=== PATIENT | female | born 1960 | race Caucasian/White ===

== ENCOUNTER → 2017-01-18 | Outpatient (CLI) | payer BC ==
[~2017-01-18] MED LIST: CATHETER FLUSH 10 ML SYR IV PRN; IOHEXOL 350 MG/ML 100 ML (OMNIPAQUE 350) VIAL IV ONE; NS 100 ML (IVPB) BAG IV ONE
[2017-01-18 08:13] LABS: BLOOD UREA NITROGEN 12 MG/DL (7-18); BUN/CREATININE RATIO 16; CREATININE SERUM 0.77 MG/DL (0.60-1.30); GFR ESTIMATED > 60
--- NOTE | 2017-01-18 11:48 | Diagnostic Imaging Report ---
PROCEDURE: CT abdomen and pelvis with and without contrast. TECHNIQUE: Precontrast acquisitions were acquired through the abdomen and pelvis. Multiple contiguous axial images were obtained through the abdomen and pelvis after the administration of intravenous contrast. INDICATION: Pelvic mass. History of hysterectomy. COMPARISON: No prior studies are available for comparison. CONTRAST: 100 mL of Omnipaque 350 is administered intravenously. FINDINGS: Sections in the lower chest demonstrate partially visualized breast implants. The lung bases appear clear. The liver, the gallbladder, the pancreas, the spleen, and adrenals appear unremarkable. The kidneys have symmetric enhancement and contrast excretion. No kidney stone or hydronephrosis is noted. The abdominal aorta is normal in caliber. No paraaortic significant enlarged lymph nodes are seen. Adjacent to the lateral aspect of the lower pole of the left kidney, there is a soft tissue enhancing nodule measuring 1.3 x 1 cm. This may relate to a splenule as it has small margins and similar density and enhancement pattern compared to the spleen. There is a large pelvic mass with heterogenous enhancement seen measuring 13 x 8.7 x 10.7 cm. The mass has lobulated margins and is centered above the cervix level. Reportedly, the patient has had a hysterectomy. Etiology is indeterminate. The mass has an element of arteriovenous shunting in its left side. There is no lymphadenopathy in the pelvis seen. There is no bowel obstruction. No significant free fluid or fluid collection in the abdomen or pelvis is seen. The osseous structures appear grossly unremarkable. IMPRESSION: A 13 cm solid the pelvic mass, likely arising from remnants of the uterus, after hysterectomy. The lesion is inseparable from the adnexa and adnexal origin therefore is also possible. Etiology is indeterminate and differential includes benign or malignant neoplasm arising from the uterine remnants or the adnexa. Carly Mims, the nurse practitioner taking care of the patient, was called and informed of the findings at 2:50 PM. Dictated by: Dictated on workstation # [id number]
--- NOTE | 2017-01-20 13:34 | Diagnostic Imaging Report ---
Bilateral screening mammogram The current study was also evaluated with a Computer Aided Detection (CAD) system. Indication: Screening. No current complaints stated on the questionnaire. COMPARISON: 11/27/15 and the other prior exams. Findings: The breasts are composed of heterogeneously dense parenchyma which decrease mammographic sensitivity. Symmetric bilateral implants are seen. No mass developing architectural distortion seen. Benign-appearing calcifications are noted. Allowing for technique and positional differences, no suspicious change is seen. IMPRESSION: No significant change. ACR BI-RADS Category 2: Benign findings. Result letter will be mailed to the patient. Note: At least 10% of breast cancer is not imaged by mammography. Dictated by: Dictated on workstation # [id number]
== END ==
LOC: RAD 07:36
PROVIDERS: ATTEND Nurse Practitioner
DX: Z12.31 Encounter for screening mammogram for malignant neoplasm of breast (principal); R19.09 Other intra-abdominal and pelvic swelling, mass and lump
CPT/HCPCS: 36415; 74178; 77067; 82565; 84520

== ENCOUNTER → 2017-01-20 | Outpatient (CLI) | payer BC ==
--- NOTE | 2017-01-20 16:57 | Diagnostic Imaging Report ---
EXAMINATION: Transabdominal and transvaginal pelvic ultrasound. INDICATION: Pelvic mass. The patient has a history of hysterectomy. FINDINGS: There is a pelvic mass with prominent vascularity measuring 12.7 x 8.4 x 10.8 cm in the central aspect of the pelvis. This is located just above the vaginal cuff and demonstrates significant internal vascularity. The relationship to the ovaries could not be evaluated on this exam as the ovaries are obscured potentially by the mass itself. IMPRESSION: Indeterminate vascular solid mass, presumably neoplastic. The organ of origin is probably adnexal but not definitive. This should be considered malignant until proven otherwise. Report faxed to JAYSON Treadwell at 4:56 p.m. /cb Dictated by: Dictated on workstation # [id number]
== END ==
LOC: RAD 13:26
PROVIDERS: ATTEND Nurse Practitioner
DX: R19.09 Other intra-abdominal and pelvic swelling, mass and lump (principal)
CPT/HCPCS: 76830; 76856

== ENCOUNTER → 2017-06-10 | Outpatient (CLI) | payer BC ==
[~2017-06-10] MED LIST changes: -CATHETER FLUSH 10 ML SYR IV PRN; +GADOBUTROL 7.5 MMOL/7.5 ML (GADAVIST) VIAL IV ONE; -IOHEXOL 350 MG/ML 100 ML (OMNIPAQUE 350) VIAL IV ONE; -NS 100 ML (IVPB) BAG IV ONE
--- NOTE | 2017-06-10 12:33 | Diagnostic Imaging Report ---
PROCEDURE: MR imaging of the brain with and without contrast. TECHNIQUE: Multiplanar, multisequence MR imaging of the brain was performed with and without contrast. INDICATION: Leiomyosarcoma, worsening vision. 5 mL of Gadavist is administered intravenously. FINDINGS: There is no diffusion restriction to suggest an acute infarct or other diffusion abnormality. The brain parenchyma demonstrate no significant signal abnormality or evidence of demyelinating process, brain edema or enhancing mass. The brainstem and cerebellum appear unremarkable. The visualized portions of the optic nerves, optic chiasm and optic tracts appear unremarkable. The pituitary gland is normal in size with no hypothalamic or pineal region mass. No hydrocephalus. No extra-axial fluid collection or mass is seen. The internal auditory canals appear symmetric. The central vascular flow-voids appear grossly unremarkable. There is a mucous retention cyst measuring 1.5 cm in the right maxillary sinus. Otherwise, the paranasal sinuses appear grossly unremarkable. The orbits appear grossly unremarkable. IMPRESSION: No significant abnormality. No evidence of metastasis. Dictated by: Dictated on workstation # [id number]
== END ==
LOC: RAD 10:41
DX: C49.9 Malignant neoplasm of connective and soft tissue, unspecified (principal)
CPT/HCPCS: 70553

== ENCOUNTER → 2017-08-17 | Outpatient (CLI) | payer BC ==
--- NOTE | 2017-08-17 10:14 | Diagnostic Imaging Report ---
EXAMINATION: PA and lateral views of the chest. INDICATION: Chronic cough. FINDINGS: The lungs are clear. The heart is normal. No effusion or pneumothorax. The mediastinum and alesia appear unremarkable. There is a left subclavian infusion port with the tip at the distal SVC level. IMPRESSION: No acute process. Dictated by: Dictated on workstation # [id number]
== END ==
LOC: RAD 08:22
PROVIDERS: ATTEND Nurse Practitioner
DX: R05 Cough (principal)
CPT/HCPCS: 71020

== ENCOUNTER → 2017-09-21 | Outpatient (CLI) | payer BC ==
--- NOTE | 2017-09-21 10:09 | Diagnostic Imaging Report ---
INDICATION: Cough FINDINGS: There is no lung mass. Hilar and mediastinal contours are unremarkable Central line at the SVC. No infiltrate, effusion, pneumothorax or evidence for edema. IMPRESSION: No acute appearing abnormality. Dictated by: Dictated on workstation # [id number]
== END ==
LOC: RAD 07:56
PROVIDERS: ATTEND Nurse Practitioner
DX: R05 Cough (principal)
CPT/HCPCS: 71046

== ENCOUNTER → 2017-09-29 | Outpatient (CLI) | payer BC ==
--- NOTE | 2017-09-29 16:05 | Diagnostic Imaging Report ---
INDICATION: Cough. COMPARISON: 09/21/2017 FINDINGS: Two views of the chest are obtained. Left Port-A-Cath is unchanged. Heart size is normal. The pulmonary vessels appear unremarkable. There is no pneumothorax, mediastinal widening or pleural fluid. There is some minimal developing nodular airspace disease in the lateral right midlung. The lungs are otherwise clear. The osseous structures appear unremarkable. IMPRESSION: Suspect some developing subtle infiltrate in the lateral right midlung. Short-term followup study is recommended. Dictated by: Dictated on workstation # [id number]
== END ==
LOC: RAD 15:36
PROVIDERS: ATTEND Internal Medicine
DX: R05 Cough (principal)
CPT/HCPCS: 71046

== ENCOUNTER 2017-10-13 21:33 | Emergency (ER) | payer BC ==
[~2017-10-13] VITALS: Ht 160 cm; Wt 54.4 kg
--- OUTSIDE RECORDS SUMMARY | 2017-10-13 21:38 | XMS REPORT | Continuity of Care Document ---
Author Author [employer] Organization [facility] Address Unknown Phone Unavailable Care Team Providers Care Computer Operations Analyst Name Role Phone [employer] Unavailable Unavailable Problems Medications Allergies, Adverse Reactions, Alerts Immunizations Results Vital Signs Encounters Location Location Details Encounter Type Encounter Number Reason For Visit Attending Provider ADM Date DC Date Status Source OUTPATIENT [id number] MIGELPedro BENDER 03/11/2017 03/11/2017 Active [facility] [place] SERIES [id number] MYRANDA BARBA 06/06/2017 06/06/2017 Active [facility] OP SURGERY [id number] MYRANDA BARBA 06/13/2017 06/13/2017 Active [facility] OUTPATIENT [id number] MYRANDA BARBA 06/16/2017 06/16/2017 Active [facility] OUTPATIENT [id number] MYRANDA BARBA 06/16/2017 06/16/2017 Active [facility] [place] SERIES [id number] KANDY FERNANDO 06/20/2017 Active [facility] [place] SERIES [id number] KANDY FERNANDO 06/20/2017 Active [facility] PROCEDURE [id number] MYRANDA BARBA 06/21/2017 06/21/2017 Active [facility] [place] SERIES [id number] KANDY FERNANDO 06/27/2017 06/27/2017 Active [facility] [place] SERIES [id number] MYRANDA BARBA 07/11/2017 07/11/2017 Active [facility] CA SERIES [id number] KANDY FERNANDO 07/18/2017 07/18/2017 Active [facility] [place] SERIES [id number] MYRANDA BARBA 08/01/2017 08/01/2017 Active [facility] CA SERIES [id number] KANDY FERNANDO 08/08/2017 08/08/2017 Active [facility] CA SERIES [id number] MYRANDA BARBA 08/22/2017 08/22/2017 Active [facility] CA SERIES [id number] KANDY FERNANDO 08/29/2017 08/29/2017 Active [facility] CA SERIES [id number] MYRANDA BARBA 09/07/2017 09/07/2017 Active [facility] OUTPATIENT [id number] 09/13/2017 Active [facility] CA SERIES [id number] MYRANDA BARBA 09/13/2017 09/13/2017 Active [facility] CA SERIES [id number] KANDY FERNANDO 09/19/2017 09/19/2017 Active [facility] OUTPATIENT [id number] MYRANDA BARBA 09/19/2017 09/19/2017 Active [facility] CA SERIES [id number] MYRANDA BARBA 10/03/2017 10/03/2017 Active [facility] CA SERIES [id number] KANDY FERNANDO 10/10/2017 Active [facility] O MYRANDA BARBA Active [facility] Procedures Plan of Care Social History Assessment and Plan Family History Advance Directives Functional Status
--- OUTSIDE RECORDS SUMMARY | 2017-10-13 21:39 | XMS REPORT | Encounter Summary ---
Author Author [facility] Organization [facility] Address Unknown Phone Unavailable Care Team Providers Care Oral And Maxillofacial Surgery Resident Name Role Phone Dave Sanchez MD PCP Reason for Visit * Reason Comments Heme/Onc Care * Treatment (Routine) Status Reason Specialty Diagnoses / Referred By Referred To Procedures Contact Contact Authorized Hematology Diagnoses Rudolph Cohn Benjamin Leiomyosarcoma MD Dakotah Claire MD ([facility]) [address] [facility] + [place] [address] [place] Phone: Phone: P [phone] rocedures Fax: [facility] + [phone] DOXORUBICIN Encounter Details Date Type Department Care Team Description 10/03/2017 [facility] Rudolph Cohn [facility] - OP MD [place] Treatment [address] [phone] Social History Tobacco Use Types Packs/Day Years Used Date Never Smoker Smokeless Tobacco: Never Used Alcohol Use Drinks/Week oz/Week Comments Yes 10 Cans of 12.0 beer 10 Shots of liquor Sex Assigned at Date Recorded Not on file as of this encounter Functional Status Functional Status Response Date of Assessment Does the patient have a hearing impairment: No 09/07/2017 Does the patient have a visual impairment: No 09/13/2017 Does the patient have impaired ambulation: No 09/13/2017 Does the patient have an activity of daily living No 09/13/2017 (ADL) impairment: Does the patient have an instrumental activity of No 09/13/2017 daily living (IADL) impairment: Cognitive Status Response Date of Assessment Does the patient have a cognitive impairment: No 09/13/2017 as of this encounter Discharge Instructions * Patient Instructions - Alta Mancera RN - 10/03/2017 10:29 AM DIRECT OF REAL ESTATE Call Immediately to report the following: Uncontrolled nausea and/or vomiting, uncontrolled pain, or unusual bleeding. Temperature of 100.4 F or greater and/or any sign/symptom of infection (redness , warmth, tenderness) Painful mouth or difficulty swallowing Red, cracked, or painful hands and/or feet Diarrhea Swelling of arms or legs Rash Important Phone Numbers: OP Cancer Center Main Number (answered 24 hours a day) [phone] Cancer Center Scheduling (appointments) [phone] OR [phone] [facility] (for nutritional supplements) [phone] in this encounter Medications at Time of Discharge Medication Sig. Disp. Refills Start Date End Date acyclovir (ZOVIRAX) 400 Take 1 tablet by mouth 60 tablet 3 07/18/2017 mg tablet every 12 hours. acyclovir (ZOVIRAX) 800 Take 1 tablet by mouth 14 tablet 0 07/18/2017 mg tablet every 12 hours. albuterol (PROAIR HFA, Inhale 2 puffs by mouth 6.7 g 1 09/21/2017 VENTOLIN HFA, OR into the lungs every 6 PROVENTIL HFA) 90 hours as needed for mcg/actuation inhaler Wheezing or Shortness of Breath. Shake well before use. calcium carbonate/vitamin Take 1 Tab by mouth D-3 (OSCAL-500+D) 1250 daily. Calcium Carb mg/200 unit tablet 1250mg delivers 500mg elemental Ca cholecalciferol (VITAMIN Take 1,000 Units by mouth D-3) 1,000 units tablet daily. dexamethasone (DECADRON) Take 2 tablets by mouth 30 tablet 3 2017 4 mg tabletIndications: daily. On Days 2-4 of Leiomyosarcoma (HCC) each cycle, as needed for acute nausea dexamethasone (DECADRON) Take 2 tablets by mouth 30 tablet 3 2016 4 mg tablet daily as needed on days 2-4 of each cycle. diphenhydrAMINE/lidocaine Swish and Swallow 10 mL 300 mL 2 07/04/2017 /antacid (#) (MAGIC by mouth as directed four MOUTHWASH) 1:1:1 oral times daily as needed for suspensionIndications: Mouth Pain. Mucositis HYDROcodone/acetaminophen Take 1-2 tablets by mouth 20 tablet 0 2016 (NORCO) 5/325 mg tablet every 4 hours as needed for Pain Earliest Fill Date: 06/20/17 ibandronate (BONIVA) 150 Take 150 mg by mouth mg tablet every 30 days. lidocaine/prilocaine apply one hour prior to 30 g 2 06/20/2017 (EMLA) 2.5/2.5 % topical port access cream LORazepam (ATIVAN) 0.5 mg Take 1 tablet by mouth 60 tablet 1 2016 tabletIndications: every 6 hours as needed ANXIETY, INSOMNIA for Nausea. Indications: ANXIETY, INSOMNIA ondansetron (ZOFRAN) 8 mg Take 1 tablet by mouth 18 tablet 5 2016 tablet every 8 hours as needed. ondansetron (ZOFRAN) 8 mg Take 1 tablet by mouth 30 tablet 5 2016 tabletIndications: every 8 hours as needed Leiomyosarcoma (HCC) (nausea and vomiting). prochlorperazine maleate Take 1 tablet by mouth 30 tablet 2 2016 (COMPAZINE) 10 mg tablet every 6 hours as needed for Nausea or Vomiting. senna/docusate Take 1 Tab by mouth twice 60 Tab 0 02/17/2017 (SENOKOT-S) 8.6/50 mg daily. tablet traMADol (ULTRAM) 50 mg Take 1-2 Tabs by mouth 60 Tab 0 02/17/2017 tablet every 6 hours as needed. vitamins, multiple tablet Take 1 Tab by mouth daily. as of this encounter Progress Notes * Alta Mancera, RN - 10/03/2017 10:28 AM DIRECT OF REAL ESTATE Pt here for treatment. Pt states she feels well, was sick last week but feels better. Port accessed and labs drawn, pt tolerated well. Pt to see Dr. Cohn. CHEMO NOTE Verified chemo consent signed and in chart. Verified initiate chemo order in O2 Blood return positive via: Port (Single) BSA and dose double checked (agree with orders as written) with: yes Labs/applicable tests checked: CBC and CMP Chemo regime: Lartudo adriamycin Cycle 6 day 1 Rate verified and armband double checkwith second RN: yes Patient education offered and stated understanding. Denies questions at this time. Pt tolerated treatment well. Port packed with heparin and deaccessed. Pt discharged in stable, ambulatory condition. in this encounter Miscellaneous Notes * Addendum Note - Patricia Garza - 10/06/2017 3:10 PM DIRECT OF REAL ESTATE Encounter addended by: Patricia Garza on: 10/06/2017 3:10 PM
Actions taken : Charge Capture section accepted in this encounter Plan of Treatment Not on fileas of this encounter Results * COMPREHENSIVE METABOLIC PANEL (10/03/2017 10:15 AM) Component Value Ref Range Sodium 135 (L) 137 - 147 MMOL/L Potassium 3.5 3.5 - 5.1 MMOL/L Chloride 101 98 - 110 MMOL/L Glucose 173 (H) 70 - 100 MG/DL Blood Urea Nitrogen 8 7 - 25 MG/DL Creatinine 0.57 0.4 - 1.00 MG/DL Calcium 9.0 8.5 - 10.6 MG/DL Total Protein 6.4 6.0 - 8.0 G/DL Total Bilirubin 0.4 0.3 - 1.2 MG/DL Albumin 4.0 3.5 - 5.0 G/DL Alk Phosphatase 43 25 - 110 U/L AST (SGOT) 44 (H) 7 - 40 U/L CO2 26 21 - 30 MMOL/L ALT (SGPT) 25 7 - 56 U/L Anion Gap 8 3 - 12 eGFR Non >60 >60 mL/min Comment: The eGFR is not validated for use in drug dosing adjustments. Continue to use estimated creatinine clearance per dosing reference text. Please contact the Clinical Pharmacist for questions. eGFR >60 >60 mL/min Comment: The eGFR is not validated for use in drug dosing adjustments. Continue to use estimated creatinine clearance per dosing reference text. Please contact the Clinical Pharmacist for questions. Specimen Performing Laboratory Blood [facility] [address] [place] [address] * CBC AND DIFF (10/03/2017 10:15 AM) Component Value Ref Range White Blood Cells 2.7 (L) 4.5 - 11.0 K/UL RBC 3.00 (L) 4.0 - 5.0 M/UL Hemoglobin 10.0 (L) 12.0 - 15.0 GM/DL Hematocrit 28.8 (L) 36 - 45 % MCV 95.9 80 - 100 FL MCH 33.2 26 - 34 PG MCHC 34.6 32.0 - 36.0 G/DL RDW 16.3 (H) 11 - 15 % Platelet Count 327 150 - 400 K/UL MPV 6.3 (L) 7 - 11 FL Neutrophils 46 41 - 77 % Lymphocytes 28 24 - 44 % Monocytes 24 (H) 4 - 12 % Eosinophils 1 0 - 5 % Basophils 1 0 - 2 % Absolute Neutrophil Count 1.30 (L) 1.8 - 7.0 K/UL Absolute Lymph Count 0.80 (L) 1.0 - 4.8 K/UL Absolute Monocyte Count 0.70 0 - 0.80 K/UL Absolute Eosinophil Count 0.00 0 - 0.45 K/UL Absolute Basophil Count 0.00 0 - 0.20 K/UL Specimen Performing Laboratory Blood [facility] [address] [phone] in this encounter 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 Administered Medications Medication Order MAR Action Action Date Dose Rate Site dexamethasone (DECADRON) 12 mg in sodium Given - New 10/03/2017 12 mg 300 mL/hr chloride 0.9% (NS) 50 mL IVPB Bag 11:55 DIRECT OF REAL ESTATE 12 mg, Intravenous, 50 mL, Administer over 10 Minutes, ONCE, 1 dose, Tue10/03/17 at 1115 dexrazoxane ([place] Generic) 942 Given - New 10/03/2017 942 mg 1256 mL/hr mg in lactated ringers (LR) 314 mL IVPB Bag 13:36 DIRECT OF REAL ESTATE 942 mg (600 mg/m2 1.57 m2 Treatment plan recorded BSA), Intravenous, 314 mL, Administer over 15 Minutes, ONCE, 1 dose, Tue10/03/17 at 1245, -- NOTE; THIS IS THE [place] GENERIC FORMULATION of dexrazoxane -- -- Administer diluted concentration over 15 minute IV infusion. Administer prior to doxorubicin. Administer doxorubicin within 30 minutes after completion of dexrazoxane. NURSING: To be administered by Chemotherapy Competency-validated nurse. NOTE: This is a HIGH ALERT Medication. SPECIAL TUBING REQUIRED diphenhydrAMINE (BENADRYL) injection 25 Given 10/03/2017 25 mg mg 11:32 DIRECT OF REAL ESTATE 25 mg, Intravenous, ONCE, 1 dose, 10/03/17 at 1115 DOXOrubicin (ADRIAMYCIN) injection 94.2 Given 10/03/2017 94.2 mg mg 14:00 DIRECT OF REAL ESTATE 94.2 mg (60 mg/m2 1.57 m2 Treatment plan recorded BSA), Intravenous, ONCE, 1 dose, 10/03/17 at 1300, Give IV push over 5- 10 minutes. Administer within 30 minutes of completion of dexrazoxane. PROTECT FROM LIGHT NURSING: To be administered by Chemotherapy Competency-validated nurse. NOTE: This is a HIGH ALERT Medication. SPECIAL TUBING REQUIRED fosaprepitant (EMEND) 150 mg in sodium Given - New 10/03/2017 150 mg 450 mL/hr chloride 0.9% (NS) 150 mL IVPB Bag 11:35 DIRECT OF REAL ESTATE 150 mg, Intravenous, 150 mL, Administer over 20 Minutes, ONCE, 1 dose, 10/03/17 at 1115 heparin lock flush PF syringe 500 Units Given 10/03/2017 500 Units 500 Units, Intravenous, ONCE, 1 dose, 14:15 DIRECT OF REAL ESTATE 10/03/17 at 1045, NOTE: This is a HIGH ALERT Medication. olaratumab (LARTRUVO) 664.8 mg in sodium Given - New 10/03/2017 664.8 mg 250 mL/hr chloride 0.9% (NS) 250 mL IVPB Bag 12:33 DIRECT OF REAL ESTATE 664.8 mg (12 mg/kg 55.4 kg Treatment plan recorded weight), Intravenous, 250 mL, Administer over 60 Minutes, ONCE, 1 dose, Tue10/03/17 at 1145, Allow infusion to reach room temp prior to administration. For Grade 1 or 2 infusion-related reactions: Interrupt infusion; after resolution resume with the rate reduced by 50%. Grade 3 or 4: Discontinue permanently. SPECIAL HANDLING PRECAUTIONS NOTE: This is a HIGH ALERT Medication. palonosetron(+) (ALOXI) injection 0.25 Given 10/03/2017 0.25 mg mg 11:30 DIRECT OF REAL ESTATE 0.25 mg, Intravenous, ONCE, 1 dose, 10/03/17 at 1115 in this encounter
--- OUTSIDE RECORDS SUMMARY | 2017-10-13 21:39 | XMS REPORT | Clinical Summary ---
Author Author [facility] Organization [facility] Address Unknown Phone Unavailable Care Team Providers Care [employer] Flake Miller Name Role Phone Dave Sanchez MD PCP Source Comments Some departments are not documenting in the electronic medical record. If you do not see the information that you expected, contact Release of Information in the Health Information Management department at [phone] for further assistance in locating additional records.[facility] Allergies No Known Allergies Current Medications Prescription Sig. Disp. Refills Start End Date Status Date ibandronate (BONIVA) 150 Take 150 mg by mouth Active mg tablet every 30 days. cholecalciferol (VITAMIN Take 1,000 Units by mouth Active D-3) 1,000 units tablet daily. vitamins, multiple tablet Take 1 Tab by mouth Active daily. calcium carbonate/vitamin Take 1 Tab by mouth Active D-3 (OSCAL-500+D) 1250 daily. Calcium Carb mg/200 unit tablet 1250mg delivers 500mg elemental Ca traMADol (ULTRAM) 50 mg Take 1-2 Tabs by mouth 60 Tab 0 02/18/20 Active tablet every 6 hours as needed. 17 senna/docusate Take 1 Tab by mouth twice 60 Tab 0 02/18/20 Active (SENOKOT-S) 8.6/50 mg daily. 17 tablet ondansetron (ZOFRAN) 8 mg Take 1 tablet by mouth 30 tablet 5 06/20/20 Active tabletIndications: every 8 hours as needed 17 Leiomyosarcoma (HCC) (nausea and vomiting). prochlorperazine maleate Take 1 tablet by mouth 30 tablet 2 06/20/20 Active (COMPAZINE) 10 mg tablet every 6 hours as needed 17 for Nausea or Vomiting. lidocaine/prilocaine apply one hour prior to 30 g 2 10/09/20 Active (EMLA) 2.5/2.5 % topical port access 17 cream HYDROcodone/acetaminophen Take 1-2 tablets by mouth 20 tablet 0 Active (NORCO) 5/325 mg tablet every 4 hours as needed 17 for Pain Earliest Fill Date: 06/20/17 LORazepam (ATIVAN) 0.5 mg Take 1 tablet by mouth 60 tablet 1 06/27/20 Active tabletIndications: every 6 hours as needed 17 ANXIETY, INSOMNIA for Nausea. Indications: ANXIETY, INSOMNIA diphenhydrAMINE/lidocaine Swish and Swallow 10 mL 300 mL 2 07/04/20 Active /antacid (#) (MAGIC by mouth as directed four 17 MOUTHWASH) 1:1:1 oral times daily as needed for suspensionIndications: Mouth Pain. Mucositis dexamethasone (DECADRON) Take 2 tablets by mouth 30 tablet 3 07/04/20 Active 4 mg tablet daily as needed on days 17 2-4 of each cycle. ondansetron (ZOFRAN) 8 mg Take 1 tablet by mouth 18 tablet 5 07/08/20 Active tablet every 8 hours as needed. 17 acyclovir (ZOVIRAX) 800 Take 1 tablet by mouth 14 tablet 0 07/18/20 Active mg tablet every 12 hours. 17 acyclovir (ZOVIRAX) 400 Take 1 tablet by mouth 60 tablet 3 07/18/20 Active mg tablet every 12 hours. 17 dexamethasone (DECADRON) Take 2 tablets by mouth 30 tablet 3 09/21/19 Active 4 mg tabletIndications: daily. On Days 2-4 of 18 Leiomyosarcoma (HCC) each cycle, as needed for acute nausea albuterol (PROAIR HFA, Inhale 2 puffs by mouth 6.7 g 1 09/21/19 Active VENTOLIN HFA, OR into the lungs every 6 18 PROVENTIL HFA) 90 hours as needed for mcg/actuation inhaler Wheezing or Shortness of Breath. Shake well before use. dexamethasone (DECADRON) Take 2 tablets by mouth 30 tablet 3 06/20/20 09/21/19 Discontin 4 mg tabletIndications: daily. On Days 2-4 of 17 18 ued Leiomyosarcoma (HCC) each cycle, as needed for acute nausea prednisone (DELTASONE) 50 Take 1 tablet by mouth 5 tablet 0 08/16/20 09/21/19 Discontin mg tabletIndications: daily with breakfast. 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 Upon examination was noted an ovarian mass vaginally extending up into abdomen. 01/18/17 CT - large 13 cm solid pelvic mass, likely arising from remnants of the uterus, after hysterectomy. The lesion is inseparable from the adnexa and adnexal origin therefore is also possible. 01/20/17 TVUS - indeterminate vascular solid mass, presumably neoplastic. Tumor markers drawn 01/18/17, CA 125=6.0, AFP=2.5, Inhibib A <1, Inhibin B <10. 02/16/17 Open bilateral salpingo-oophorectomy with a tumor debulking of mass. Final path - Non exhibits curator 14.1x9.1x13.5cm leiomyosarcoma of mesentery, margins neg but extremely close, thin capsule intact Mitotic rate: 8 /10 high-power carrera (HPF), with moderate nuclear atypia; necrosis 5 %; grade 1; (-) LVI; (+) smooth muscle actin and H-caldesmon; (-) CD 117, DOG-1, ER (minimal focal faint staining for [place]) Staging CT chest 03/11/17 showed multiple small subcm right lung nodules, and no thoracic adenopathy. She has never had any previous CTs of chest. CT 06/06/17 showed new R hepatic lobe lesion as well as growth in B lung spots concerning for metastatic disease. MRI brain 06/10/17 showed no significant abnormality (was having some vision changes). 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 She started doxorubicin + olaratumab combo in-house on 06/21/17, and tolerated first cycle well, without any allergic reactions. Her big issue throughout first cycle has been significant mucositis to the point of not being able to tolerate much by mouth other than water for 3-4 days, as well as neutropenic fever, for which she was given a course of levaquin. She was unable to work the last week of the first three week cycle due to aforementioned, so we dose-reduced both drugs with second cycle, and the 2nd cycle was much better tolerated. The 3rd cycle was complicated by viral URI, which she thinks was probably due to the large Thanksgiving libertarian they hosted at their house. She had a course of augmentin and steroids and recovered from that. Restaging CT after 4 cycles on 09/07/17 showed stable (liver, peritoneal nodule) to slight improvement (lungs) in metastatic disease. Therefore, she continued with doxo + olara, and added dexrazoxane with 5th cycle onward. Repeat echo 09/19/17 showed preserved EF at 60%. Now here after 5th cycle. Called in with fevers and dry cough last week. CXR on last showed concerning findings for pneumonia. She was neutropenic at the time, but was given oral antibiotics with improvement over last few days. Dexrazoxane addition certainly made her more myelosuppressed. She feels fine today; no cough throughout the history/exam. Wondering if she can spray medel. 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 Continue cycle #6 doxo + olara this week, dose-reduced (60mg/m2 and 12mg/kg, respectively) due to side effect profile. Due to worsened neutropenia and fevers with cycle #5, incorporate Neulasta into day 8 portion of cycle, in hopes of preventing further neutropenic fevers. I have encouraged her to really re-focus on life and what she wants to accomplish/do/enjoy in the meantime. She has a daughter 10mins from the clinic, where she can stay if need be. Restage after 8th cycle next. She is looking at [place] or [place] for next big trip ("somewhere warm"). Discussed with the patient and all questions fully answered. She will call me if any problems arise. Neuropathy (HCC) 02/28/2017 Resolved Problems Problem Noted Date Resolved Date Diarrhea 02/28/2017 03/28/2017 Adnexal mass 02/16/2017 02/28/2017 Abdominal distention 01/31/2017 03/28/2017 Pelvic mass in female 01/31/2017 02/28/2017 Encounters Date Type Specialty Care Team Description 10/13/2017 Telephone Oncology Rudolph Cohn Care Coordination MD [place] 10/10/2017 Office Visit Oncology Valentina Pérez APRN Leiomyosarcoma ( HCC) (Primary Dx) 10/10/2017 Hospital Oncology Valentina Pérez, PLATFORM POWER TECHNICIAN Arrived Encounter 10/10/2017 Hospital Lab Valentina Préez, PLATFORM POWER TECHNICIAN Arrived Encounter 10/03/2017 Office Visit Oncology Rudolph Cohn Leiomyosarcoma (HCC) MD [place] 10/03/2017 Hospital Oncology Rudolph Cohn MD 10/03/2017 Hospital Lab Rudolph Cohn MD 09/30/2017 Orders Only Oncology Michelle Lundberg, [facility] 09/30/2017 Orders Only Oncology Lalit, Rudolph Claire MD 09/29/2017 Telephone Oncology Rudolph Cohn Fever (fever/ neutropenia) MD [place] 09/29/2017 Orders Only Oncology Rudolph Cohn MD 09/29/2017 Orders Only Oncology Rudolph Cohn Leiomyosarcoma (HCC) MD [place] 09/27/2017 Telephone Oncology Lalit, Rudolph Results MD [place] 09/21/2017 Telephone Oncology Cohn, Rudolph Claire MD 09/20/2017 Telephone Oncology Lalit, Rudolph Claire MD 09/19/2017 [facility] Cardiology Rudolph Cohn MD 09/19/2017 Office Visit Oncology Valentina Pérez, PLATFORM POWER TECHNICIAN Leiomyosarcoma ( HCC) (Primary Dx) 09/19/2017 [facility] Lab Valentina Pérez PLATFORM POWER TECHNICIAN Encounter 09/19/2017 [facility] Oncology Valentina Pérez, PLATFORM POWER TECHNICIAN Encounter 09/13/2017 [facility] Oncology Rudolph Cohn MD 09/13/2017 [facility] Lab Rudolph Cohn Encounter MD [place] 09/07/2017 Office Visit Oncology Rudolph Cohn Leiomyosarcoma (HCC) MD [place] (Primary Dx) 09/07/2017 [facility] Radiology Rudolph Cohn MD 08/29/2017 Office Visit Oncology Valentina Pérez, PLATFORM POWER TECHNICIAN Leiomyosarcoma ( HCC) (Primary Dx) 08/29/2017 Hospital Oncology Valentina Pérez, PLATFORM POWER TECHNICIAN Encounter 08/29/2017 Hospital Lab Valentina Pérez, PLATFORM POWER TECHNICIAN Encounter 08/29/2017 Orders Only Oncology Katlyn Simental, PHARMD 08/24/2017 Orders Only Oncology Rudolph Cohn Upper respiratory tract MD [place] infection, unspecified type; Leiomyosarcoma (HCC) 08/22/2017 Office Visit Oncology Rudolph Cohn Leiomyosarcoma (HCC) MD [place] 08/22/2017 [facility] Rudolph Cash MD 08/22/2017 [facility] Lab Rudolph Cohn MD 08/22/2017 Orders Only Rudolph Cash Leiomyosarcoma (HCC) MD [place] (Primary Dx) 08/22/2017 Pharmacy Visit 08/19/2017 Orders Only Rudolph Cash MD 08/18/2017 Orders Only Rudolph Cash MD 08/18/2017 Ancillary Radiology Outpatient, Radiologist Diagnosis unknown Orders 08/17/2017 Hospital Radiology Encounter 08/16/2017 Telephone Rudolph Cash MD 08/08/2017 Office Visit Oncology Valentina Pérez APRN Leiomyosarcoma ( HCC) (Primary Dx) 08/08/2017 [facility] Valentina Toribio APRN Encounter 08/08/2017 Hospital Lab Valentina Pérez APRN Encounter 08/08/2017 Pharmacy Visit 08/01/2017 Office Visit Rudolph Cash Leiomyosarcoma (HCC) MD [place] (Primary Dx) 08/01/2017 [facility] Rudolph Cash MD 08/01/2017 [facility] Lab Rudolph Cohn MD 08/01/2017 Procedure Pass Radiology 08/01/2017 Procedure Pass Radiology 07/28/2017 Orders Only Rudolph Cash MD 07/25/2017 Orders Only Rudolph Cash MD 07/25/2017 Orders Only Oncology Aimee Fink RN Leiomyosarcoma ( HCC) 07/25/2017 Telephone Rudolph Cash MD 07/18/2017 Office Visit Oncology Valentina Pérez APRN Leiomyosarcoma ( HCC) (Primary Dx) 07/18/2017 [facility] Valentina Toribio PLATFORM POWER TECHNICIAN Encounter 07/18/2017 Hospital Lab Valentina Pérez APRN Encounter 07/18/2017 Pharmacy Visit from Last 3 Months Family History Medical History Relation Name Comments Diabetes Father Cancer-Breast Maternal unknown age Grandmother Cancer-Breast Mother mastectomy Cancer-Ovarian Mother Diabetes Paternal Grandmother Cancer-Colon Neg Hx Cancer-Prostate Neg Hx Cancer-Uterine Neg Hx Relation Name Status Comments Father Maternal Grandmother Mother Paternal Grandmother Social History Tobacco Use Types Packs/Day Years Used Date Never Smoker Smokeless Tobacco: Never Used Alcohol Use Drinks/Week oz/Week Comments Yes 10 Cans of 12.0 beer 10 Shots of liquor Sex Assigned at Date Recorded Not on file Last Filed Vital Signs Vital Sign Reading Time Taken Blood Pressure 107/58 10/10/2017 10:35 AM [employer] Pulse 96 10/03/2017 10:21 AM [employer] Temperature 36.7 C (98.1 F) 10/10/2017 10:35 AM [employer] Respiratory Rate 16 10/10/2017 10:35 AM [employer] Oxygen Saturation 97% 10/03/2017 10:21 AM [employer] Inhaled Oxygen - - Concentration Weight 56.2 kg (123 lb 12.8 oz) 10/10/2017 10:35 AM [employer] Height 160 cm (5' 2.99") 10/10/2017 10:35 AM [employer] Body Mass Index 21.94 10/10/2017 10:35 AM [employer] Plan of Treatment Health Maintenance Due Date Last Done Comments HEPATITIS C SCREENING 1960 PHYSICAL (COMPREHENSIVE) 11/18/1967 EXAM PERTUSSIS VACCINE 11/18/1971 TETANUS VACCINE 1977 CERVICAL CANCER SCREENING 1990 BREAST CANCER SCREENING 2000 COLORECTAL CANCER 2010 SCREENING INFLUENZA VACCINE 04/12/2017 Implants Implanted Type Area [employer] Application Developer Device Expiration Model / Identifier Date Serial / Lot Port Implantable 8 Float Point Unit Left: CR BARD:ACCESS 09/08/2017 [id number] / [employer] Intermediate - [id number] Chest SYS [id number] / Implanted: Qty: 1 on 06/20/2017 by [id number] Ben Saleh MD Results * CBC AND DIFF (10/10/2017 10:34 AM) Only the most recent of 12 results within the time period is included. Component Value Ref Range White Blood Cells 1.7 (L) 4.5 - 11.0 K/UL RBC 2.95 (L) 4.0 - 5.0 M/UL Hemoglobin 9.7 (L) 12.0 - 15.0 GM/DL Hematocrit 28.3 (L) 36 - 45 % MCV 95.9 80 - 100 FL MCH 32.8 26 - 34 PG MCHC 34.2 32.0 - 36.0 G/DL RDW 15.5 (H) 11 - 15 % Platelet Count 126 (L)Comment: Confirmed by smear 150 - 400 K/UL MPV 6.2 (L) 7 - 11 FL Neutrophils 59 41 - 77 % Lymphocytes 40 24 - 44 % Monocytes 0 (L) 4 - 12 % Eosinophils 0 0 - 5 % Basophils 1 0 - 2 % Absolute Neutrophil Count 1.00 (L) 1.8 - 7.0 K/UL Absolute Lymph Count 0.70 (L) 1.0 - 4.8 K/UL Absolute Monocyte Count 0.00 0 - 0.80 K/UL Absolute Eosinophil Count 0.00 0 - 0.45 K/UL Absolute Basophil Count 0.00 0 - 0.20 K/UL Specimen Performing Laboratory Blood [facility] [place] [id number] [place] [id number] * COMPREHENSIVE METABOLIC PANEL (10/03/2017 10:15 AM) Only the most recent of 6 results within the time period is included. Component Value Ref Range Sodium 135 (L) [...] Pharmacist for questions. Specimen Performing Laboratory Blood [facility] [address] [place] [address] * 2-D ECHOCARDIOGRAM ONLY (09/19/2017 1:32 PM) Component Value Ref Range IVS 0.90 0.6 - 0.9 cm LVIDD 3.73 3.9 - 5.3 cm LVIDS 2.56 cm PW 0.95 0.6 - 0.9 cm LA volume 31.50 22 - 52 cm3 LA size 2.70 2.7 - 3.8 cm Sinus 3.00 2.1 - 3.5 cm Right Heart Systolic 3.06 cm Mmode TAPSE Right Ventricular Mid 2.40 1.9 - 3.5 cm Diameter Right Ventricular Basal 3.60 2.5 - 4.1 cm Diameter Right Atrial Major 4.48 <=5.3 cm Dimension Right Atrial Area 11.90 <=18 cm2 Right Ventricular Long 5.66 5.9 - 8.3 cm Diameter BSA 1.57 m2 FS 31.37 28 - 44 % EF 53.33 % Left Atrium Index 20.06 10 - 32 Referring Provider Rudolph Cohn ECHO EF 60 % Specimen Performing Laboratory OTHER OUTSIDE LAB Narrative This is a 2D echo study only, no spectral/color Doppler was performed. Normal left ventricular systolic function, estimated ejection fraction is 60%. Right Ventricle: Normal size and ejection fraction. TAPSE ranged from 3.00 cm to 3.15 cm (reference range 1.5 - 2.0 cm). No significant valvular abnormalities by 2D echo exam only. The global longitudinal strain is - 17.6%. * CT ABD/PELV W CONTRAST (09/07/2017 11:30 AM) Specimen Performing Laboratory [facility] RESULTS Impressions Chest: 1. Overall slight improvement in multiple scattered subcentimeter pulmonary nodules within both lungs consistent with response to therapy. No new or enlarging pulmonary nodules. 2. No significant thoracic lymphadenopathy. Abdomen and Pelvis: 1. Prior total hysterectomy. 2. Essentially stable subtle 1.7 cm low-attenuation lesion within the right hepatic lobe consistent with known hepatic metastasis. More linear low-density area noted just lateral to this lesion likely represents postbiopsy changes. Continued attention on follow-up is recommended. Additional tiny subcentimeter hypodensity within the hepatic dome is stable and remains indeterminate. No new hepatic metastases. 3. Stable 1.3 cm enhancing nodule just posterior to the proximal descending colon at the level of the left kidney which may represent accessory splenule or peritoneal metastasis. Continued attention on follow-up is recommended. 4. No significant abdominal or pelvic lymphadenopathy. Finalized by Marcelo Allen M.D. on 09/07/2017 12:18 PM. Dictated by Marcelo Allen M.D. on 09/07/2017 11:[address] Chest, Abdomen and Pelvis with contrast Clinical Indication: Female, 56 years old.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 Technique: Multiple contiguous axial images were obtained through the chest, abdomen and pelvis following the uneventful administration of 93 mL IV contrast material. Post processing coronal and sagittal reconstruction images were made from the axial images. Comparison: 06/06/2017 Chest Findings: Lower neck: No significant abnormalities are identified. Heart and Great Vessels: Left-sided chest port is in place. The aorta is normal in caliber. No significant pericardial effusion is present. Axilla, Mediastinum and Sandra: No significant axillary, mediastinal or hilar adenopathy is seen. Trachea and Major Bronchi: Unremarkable. Lungs and Pleura: Overall slight improvement in multiple scattered subcentimeter pulmonary nodules within both lungs. [employer] nodule within the anterior right midlung now measures 0.7 cm, previously 0.8 cm. A few additional scattered subcentimeter nodules are also improved. Others are stable. No new or enlarging pulmonary nodules. No pleural effusion. Chest Wall and Osseous Structures: No destructive osseous lesions are seen. Abdomen and Pelvis Findings: Liver and Biliary system:The gallbladder appears grossly unremarkable. The liver is normal in size. Essentially stable subtle 1.7 cm low-attenuation lesion within the posterior segment of the right hepatic lobe on image 16 of series 3. More linear low-density noted just lateral to this may related to prior post biopsy changes. Additional tiny subcentimeter hypodensity within the hepatic dome on image 5 of series 3 is stable. No new hepatic lesions. The visualized portal veins are patent. Spleen: Unremarkable. Adrenal Glands and Kidneys:No suspicious adrenal lesions are seen. The kidneys appear unremarkable. Pancreas and Retroperitoneum: The pancreas appears unremarkable. No significant retroperitoneal adenopathy is seen. Aorta and Major Vessels: The abdominal aorta is normal in caliber. Bowel: The large and small bowel loops are normal in caliber. Essentially stable 1.3 cm enhancing nodule just posterior to the descending colon on image 25 of series 3, previously 1.2 cm. Mesentery and Peritoneal space: No significant mesenteric adenopathy is seen. Pelvis: Prior total hysterectomy. Vaginal cuff is unremarkable. The undistended urinary bladder appears grossly unremarkable. No free pelvic fluid. No significant pelvic lymphadenopathy. Abdominal wall and Osseous Structures: No destructive osseous lesions are seen. Procedure Note Interface, Radiant Results - 09/07/2017 12:[address] [address] Chest, Abdomen and Pelvis with contrast Clinical Indication: Female, 56 years old. 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 Technique: Multiple contiguous axial images were obtained through the chest, abdomen and pelvis following the uneventful administration of 93 mL IV contrast material. Post processing coronal and sagittal reconstruction images were made from the axial images. Comparison: 06/06/2017 Chest Findings: Lower neck: No significant abnormalities are identified. Heart and Great Vessels: Left-sided chest port is in place. The aorta is normal in caliber. No significant pericardial effusion is present. Axilla, Mediastinum and Sandra: No significant axillary, mediastinal or hilar adenopathy is seen. Trachea and Major Bronchi: Unremarkable. Lungs and Pleura: Overall slight improvement in multiple scattered subcentimeter pulmonary nodules within both lungs. [employer] nodule within the anterior right midlung now measures 0.7 cm, previously 0.8 cm. A few additional scattered subcentimeter nodules are also improved. Others are stable. No new or enlarging pulmonary nodules. No pleural effusion. Chest Wall and Osseous Structures: No destructive osseous lesions are seen. Abdomen and Pelvis Findings: Liver and Biliary system:The gallbladder appears grossly unremarkable. The liver is normal in size. Essentially stable subtle 1.7 cm low-attenuation lesion within the posterior segment of the right hepatic lobe on image 16 of series 3. More linear low-density noted just lateral to this may related to prior post biopsy changes. Additional tiny subcentimeter hypodensity within the hepatic dome on image 5 of series 3 is stable. No new hepatic lesions. The visualized portal veins are patent. Spleen: Unremarkable. Adrenal Glands and Kidneys:No suspicious adrenal lesions are seen. The kidneys appear unremarkable. Pancreas and Retroperitoneum: The pancreas appears unremarkable. No significant retroperitoneal adenopathy is seen. Aorta and Major Vessels: The abdominal aorta is normal in caliber. Bowel: The large and small bowel loops are normal in caliber. Essentially stable 1.3 cm enhancing nodule just posterior to the descending colon on image 25 of series 3, previously 1.2 cm. Mesentery and Peritoneal space: No significant mesenteric adenopathy is seen. Pelvis: Prior total hysterectomy. Vaginal cuff is unremarkable. The undistended urinary bladder appears grossly unremarkable. No free pelvic fluid. No significant pelvic lymphadenopathy. Abdominal wall and Osseous Structures: No destructive osseous lesions are seen. IMPRESSION Chest: 1. Overall slight improvement in multiple scattered subcentimeter pulmonary nodules within both lungs consistent with response to therapy. No new or enlarging pulmonary nodules. 2. No significant thoracic lymphadenopathy. Abdomen and Pelvis: 1. Prior total hysterectomy. 2. Essentially stable subtle 1.7 cm low-attenuation lesion within the right hepatic lobe consistent with known hepatic metastasis. More linear low-density area noted just lateral to this lesion likely represents postbiopsy changes. Continued attention on follow-up is recommended. Additional tiny subcentimeter hypodensity within the hepatic dome is stable and remains indeterminate. No new hepatic metastases. 3. Stable 1.3 cm enhancing nodule just posterior to the proximal descending colon at the level of the left kidney which may represent accessory splenule or peritoneal metastasis. Continued attention on follow-up is recommended. 4. No significant abdominal or pelvic lymphadenopathy. Finalized by Marcelo Allen M.D. on 09/07/2017 12:18 PM. Dictated by Marcelo Allen M.D. on 09/07/2017 11:44 AM. * CT CHEST W CONTRAST (09/07/2017 11:30 AM) Specimen Performing Laboratory [facility] RESULTS Impressions Chest: 1. Overall slight improvement in multiple scattered subcentimeter pulmonary nodules within both lungs consistent with response to therapy. No new or enlarging pulmonary nodules. 2. No significant thoracic lymphadenopathy. Abdomen and Pelvis: 1. Prior total hysterectomy. 2. Essentially stable subtle 1.7 cm low-attenuation lesion within the right hepatic lobe consistent with known hepatic metastasis. More linear low-density area noted just lateral to this lesion likely represents postbiopsy changes. Continued attention on follow-up is recommended. Additional tiny subcentimeter hypodensity within the hepatic dome is stable and remains indeterminate. No new hepatic metastases. 3. Stable 1.3 cm enhancing nodule just posterior to the proximal descending colon at the level of the left kidney which may represent accessory splenule or peritoneal metastasis. Continued attention on follow-up is recommended. 4. No significant abdominal or pelvic lymphadenopathy. Finalized by Marcelo Allen M.D. on 09/07/2017 12:18 PM. Dictated by Marcelo Allen M.D. on 09/07/2017 11:[address] Chest, Abdomen and Pelvis with contrast Clinical Indication: Female, 56 years old.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 Technique: Multiple contiguous axial images were obtained through the chest, abdomen and pelvis following the uneventful administration of 93 mL IV contrast material. Post processing coronal and sagittal reconstruction images were made from the axial images. Comparison: 06/06/2017 Chest Findings: Lower neck: No significant abnormalities are identified. Heart and Great Vessels: Left-sided chest port is in place. The aorta is normal in caliber. No significant pericardial effusion is present. Axilla, Mediastinum and Sandra: No significant axillary, mediastinal or hilar adenopathy is seen. Trachea and Major Bronchi: Unremarkable. Lungs and Pleura: Overall slight improvement in multiple scattered subcentimeter pulmonary nodules within both lungs. Stitcher Special Machine nodule within the anterior right midlung now measures 0.7 cm, previously 0.8 cm. A few additional scattered subcentimeter nodules are also improved. Others are stable. No new or enlarging pulmonary nodules. No pleural effusion. Chest Wall and Osseous Structures: No destructive osseous lesions are seen. Abdomen and Pelvis Findings: Liver and Biliary system:The gallbladder appears grossly unremarkable. The liver is normal in size. Essentially stable subtle 1.7 cm low-attenuation lesion within the posterior segment of the right hepatic lobe on image 16 of series 3. More linear low-density noted just lateral to this may related to prior post biopsy changes. Additional tiny subcentimeter hypodensity within the hepatic dome on image 5 of series 3 is stable. No new hepatic lesions. The visualized portal veins are patent. Spleen: Unremarkable. Adrenal Glands and Kidneys:No suspicious adrenal lesions are seen. The kidneys appear unremarkable. Pancreas and Retroperitoneum: The pancreas appears unremarkable. No significant retroperitoneal adenopathy is seen. Aorta and Major Vessels: The abdominal aorta is normal in caliber. Bowel: The large and small bowel loops are normal in caliber. Essentially stable 1.3 cm enhancing nodule just posterior to the descending colon on image 25 of series 3, previously 1.2 cm. Mesentery and Peritoneal space: No significant mesenteric adenopathy is seen. Pelvis: Prior total hysterectomy. Vaginal cuff is unremarkable. The undistended urinary bladder appears grossly unremarkable. No free pelvic fluid. No significant pelvic lymphadenopathy. Abdominal wall and Osseous Structures: No destructive osseous lesions are seen. Procedure Note Interface, Radiant Results - 09/07/2017 12:21 [address] [address] Chest, Abdomen and Pelvis with contrast Clinical Indication: Female, 56 years old. 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 Technique: Multiple contiguous axial images were obtained through the chest, abdomen and pelvis following the uneventful administration of 93 mL IV contrast material. Post processing coronal and sagittal reconstruction images were made from the axial images. Comparison: 06/06/2017 Chest Findings: Lower neck: No significant abnormalities are identified. Heart and Great Vessels: Left-sided chest port is in place. The aorta is normal in caliber. No significant pericardial effusion is present. Axilla, Mediastinum and Sandra: No significant axillary, mediastinal or hilar adenopathy is seen. Trachea and Major Bronchi: Unremarkable. Lungs and Pleura: Overall slight improvement in multiple scattered subcentimeter pulmonary nodules within both lungs. Stitcher [employer] Machine nodule within the anterior right midlung now measures 0.7 cm, previously 0.8 cm. A few additional scattered subcentimeter nodules are also improved. Others are stable. No new or enlarging pulmonary nodules. No pleural effusion. Chest Wall and Osseous Structures: No destructive osseous lesions are seen. Abdomen and Pelvis Findings: Liver and Biliary system:The gallbladder appears grossly unremarkable. The liver is normal in size. Essentially stable subtle 1.7 cm low-attenuation lesion within the posterior segment of the right hepatic lobe on image 16 of series 3. More linear low-density noted just lateral to this may related to prior post biopsy changes. Additional tiny subcentimeter hypodensity within the hepatic dome on image 5 of series 3 is stable. No new hepatic lesions. The visualized portal veins are patent. Spleen: Unremarkable. Adrenal Glands and Kidneys:No suspicious adrenal lesions are seen. The kidneys appear unremarkable. Pancreas and Retroperitoneum: The pancreas appears unremarkable. No significant retroperitoneal adenopathy is seen. Aorta and Major Vessels: The abdominal aorta is normal in caliber. Bowel: The large and small bowel loops are normal in caliber. Essentially stable 1.3 cm enhancing nodule just posterior to the descending colon on image 25 of series 3, previously 1.2 cm. Mesentery and Peritoneal space: No significant mesenteric adenopathy is seen. Pelvis: Prior total hysterectomy. Vaginal cuff is unremarkable. The undistended urinary bladder appears grossly unremarkable. No free pelvic fluid. No significant pelvic lymphadenopathy. Abdominal wall and Osseous Structures: No destructive osseous lesions are seen. IMPRESSION Chest: 1. Overall slight improvement in multiple scattered subcentimeter pulmonary nodules within both lungs consistent with response to therapy. No new or enlarging pulmonary nodules. 2. No significant thoracic lymphadenopathy. Abdomen and Pelvis: 1. Prior total hysterectomy. 2. Essentially stable subtle 1.7 cm low-attenuation lesion within the right hepatic lobe consistent with known hepatic metastasis. More linear low-density area noted just lateral to this lesion likely represents postbiopsy changes. Continued attention on follow-up is recommended. Additional tiny subcentimeter hypodensity within the hepatic dome is stable and remains indeterminate. No new hepatic metastases. 3. Stable 1.3 cm enhancing nodule just posterior to the proximal descending colon at the level of the left kidney which may represent accessory splenule or peritoneal metastasis. Continued attention on follow-up is recommended. 4. No significant abdominal or pelvic lymphadenopathy. Finalized by Marcelo Allen M.D. on 09/07/2017 12:18 PM. Dictated by Marcelo Allen M.D. on 09/07/2017 11:44 AM. * GENERAL RAD CHEST EXTERNAL IMAGING (08/17/2017) Narrative This order has been auto finalized and does not contain a result. * CHEST 2 VIEWS (08/17/2017) Specimen Performing Laboratory [facility] [address] [place] [address] from Last 3 Months
--- OUTSIDE RECORDS SUMMARY | 2017-10-13 21:39 | XMS REPORT | Encounter Summary ---
Author Author [facility] Organization [facility] Address Unknown Phone Unavailable Care Team Providers Care Cma Or Lpn Name Role Phone Dave Sanchez MD PCP Encounter Details Date Type Department Care Team Description 10/10/2017 Hospital [facility] Valentina Pérez APRN Arrived Encounter Cancer Center - OP Lab [id number] [place] [address] [address] [place] [address] [phone] Social History Tobacco Use Types Packs/Day Years Used Date Never Smoker Smokeless Tobacco: Never Used Alcohol Use Drinks/Week oz/Week Comments Yes 10 Cans of 12.0 beer 10 Shots of liquor Sex Assigned at Date Recorded Not on file as of this encounter Functional Status Functional Status Response Date of Assessment Does the patient have a hearing impairment: No 10/10/2017 Does the patient have a visual impairment: No 10/10/2017 Does the patient have impaired ambulation: No 10/10/2017 Does the patient have an activity of daily living No 10/10/2017 (ADL) impairment: Does the patient have an instrumental activity of No 10/10/2017 daily living (IADL) impairment: Cognitive Status Response Date of Assessment Does the patient have a cognitive impairment: No 10/10/2017 as of this encounter Plan of Treatment Not on fileas of this encounter Results * CBC AND DIFF (10/10/2017 10:34 AM) Component Value Ref Range White Blood [...] - 0.20 K/UL Specimen Performing Laboratory Blood [facility] [address] [id number] in this encounter 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
--- OUTSIDE RECORDS SUMMARY | 2017-10-13 21:39 | XMS REPORT | Encounter Summary ---
Author Author [facility] Organization [facility] Address Unknown Phone Unavailable Care Team Providers Care Roll Grinder Name Role Phone Dave Sanchez MD PCP Reason for Visit * Reason Comments Heme/Onc Care Encounter Details Date Type Department Care Team Description 10/03/2017 Office Visit [facility] Rudolph Cohn Leiomyosarcoma (HCC) Cancer Center - OP Exam [place] [address] [phone] Social History Tobacco Use Types Packs/Day Years Used Date Never Smoker Smokeless Tobacco: Never Used Alcohol Use Drinks/Week oz/Week Comments Yes 10 Cans of 12.0 beer 10 Shots of liquor Sex Assigned at Date Recorded Not on file as of this encounter Last Filed Vital Signs Vital Sign Reading Time Taken Blood Pressure 120/60 10/03/2017 10:21 AM CARPET TILE LAYER Pulse 96 10/03/2017 10:21 AM CARPET TILE LAYER Temperature 36.7 C (98 F) 10/03/2017 10:21 AM CARPET TILE LAYER Respiratory Rate 16 10/03/2017 10:21 AM CARPET TILE LAYER Oxygen Saturation 97% 10/03/2017 10:21 AM CARPET TILE LAYER Inhaled Oxygen - - Concentration Weight 56.2 kg (124 lb) 10/03/2017 10:21 AM CARPET TILE LAYER Height 160 cm (5' 2.99") 10/03/2017 10:21 AM CARPET TILE LAYER Body Mass Index 21.97 10/03/2017 10:21 AM CARPET TILE LAYER in this encounter Functional Status Functional Status Response [...] impairment: No 09/13/2017 as of this encounter Progress Notes * Rudolph Cohn MD - 10/03/2017 10:30 AM CARPET TILE LAYER Formatting of this note may be different from the original. Name: Mary Yang : 1960 AGE: 56 y.o. DATE OF SERVICE: 10/03/2017 Subjective: Reason for Visit: Heme/Onc Care Mary Yang is a 56 y.o. female. Leiomyosarcoma (HCC) Staging form: Soft Tissue Sarcoma, AJCC 7th Edition - Clinical stage from 06/16/2017: Stage IV (M1, G1) - Signed by Rudolph Cohn MD on 06/16/2017 History of Present Illness Patient seen by RIVER DRIVER on 01/17/17 for annual exam. Upon examination [...] debulking of mass. Final path - Non press maintainer 14.1x9.1x13.5cm leiomyosarcoma of mesentery, margins neg but extremely close, thin capsule intact Mitotic rate: 8 /10 high-power carrera (HPF), with moderate nuclear atypia; necrosis 5 %; grade 1; (-) LVI; (+) smooth muscle actin and H-caldesmon; (-) CD 117, DOG-1, ER (minimal focal faint staining for HI) Staging CT chest 03/11/17 showed multiple small [...] Repeat echo 09/19/17 showed preserved EF at 60% . Now here after 5th cycle. Called in with fevers and dry cough last week. Cough helped the most with tessalon pearls. CXR on last showed concerning findings for pneumonia. She was neutropenic at the time, but was given oral antibiotics with improvement over last few days. Dexrazoxane addition certainly made her more myelosuppressed. She feels fine today; no cough throughout the history/exam. Wondering if she can spray medel. Review of Systems All other systems reviewed and are negative. Objective: acyclovir (ZOVIRAX) 400 mg tablet Take 1 tablet by mouth every 12 hours. acyclovir (ZOVIRAX) 800 mg tablet Take 1 tablet by mouth every 12 hours. albuterol (PROAIR HFA, VENTOLIN HFA, OR PROVENTIL HFA) 90 mcg/actuation inhaler Inhale 2 puffs by mouth into the lungs every 6 hours as needed for Wheezing or Shortness of Breath. Shake well before use. calcium carbonate/vitamin D-3 (OSCAL-500+D) 1250 mg/200 unit tablet Take 1 Tab by mouth daily. Calcium Carb 1250mg delivers 500mg elemental Ca cholecalciferol (VITAMIN D-3) 1,000 units tablet Take 1,000 Units by mouth daily. dexamethasone (DECADRON) 4 mg tablet Take 2 tablets by mouth daily. On Days 2-4 of each cycle, as needed for acute nausea dexamethasone (DECADRON) 4 mg tablet Take 2 tablets by mouth daily as needed on days 2-4 of each cycle. diphenhydrAMINE/lidocaine/antacid (#) (MAGIC MOUTHWASH) 1:1:1 oral suspension Swish and Swallow 10 mL by mouth as directed four times daily as needed for Mouth Pain. HYDROcodone/acetaminophen (NORCO) 5/325 mg tablet Take 1-2 tablets by mouth every 4 hours as needed for Pain Earliest Fill Date: 06/20/17 ibandronate (BONIVA) 150 mg tablet Take 150 mg by mouth every 30 days. lidocaine/prilocaine (EMLA) 2.5/2.5 % topical cream apply one hour prior to port access LORazepam (ATIVAN) 0.5 mg tablet Take 1 tablet by mouth every 6 hours as needed for Nausea. Indications: ANXIETY, INSOMNIA ondansetron (ZOFRAN) 8 mg tablet Take 1 tablet by mouth every 8 hours as needed. ondansetron (ZOFRAN) 8 mg tablet Take 1 tablet by mouth every 8 hours as needed (nausea and vomiting). prochlorperazine maleate (COMPAZINE) 10 mg tablet Take 1 tablet by mouth every 6 hours as needed for Nausea or Vomiting. senna/docusate (SENOKOT-S) 8.6/50 mg tablet Take 1 Tab by mouth twice daily. traMADol (ULTRAM) 50 mg tablet Take 1-2 Tabs by mouth every 6 hours as needed. vitamins, multiple tablet Take 1 Tab by mouth daily. Vitals: 10/03/17 1021 BP: 120/60 Pulse: 96 Resp: 16 Temp: 36.7 C (98 F) TempSrc: Oral SpO2: 97% Weight: 56.2 kg (124 lb) Height: 160 cm (62.99") Body mass index is 21.97 kg/(m^2). Pain Score: Zero Pain Addressed: N/A Patient Evaluated for a Clinical Trial: No treatment clinical trial available for this patient. Eastern Cooperative Oncology Group performance status is 0, Fully active, able to carry on all pre-disease performance without restriction.. Physical Exam Constitutional: She is oriented to person, place, and time. She appears well- nourished. No distress. HENT: Head: Atraumatic. Mouth/Throat: No oropharyngeal exudate. No mucositis Eyes: EOM are normal. No scleral icterus. Neck: Neck supple. Cardiovascular: Normal rate and regular rhythm. Pulmonary/Chest: Effort normal and breath sounds normal. She has no wheezes. She has no rales. She exhibits no tenderness. No cough Abdominal: Soft. Bowel sounds are normal. She exhibits no distension and no mass. There is no tenderness. There is no guarding. No hernia. Incision healed well Musculoskeletal: Normal range of motion. She exhibits no edema. Lymphadenopathy: She has no cervical adenopathy. Neurological: She is alert and oriented to person, place, and time. She displays normal reflexes. No cranial nerve deficit. Coordination normal. Skin: Skin is warm and dry. No rash noted. No erythema. Psychiatric: She has a normal mood and affect. Her behavior is normal. Judgment and thought content normal. Vitals reviewed. CBC w/Diff Lab Results Component Value Date/Time WBC 2.7 (L) 10/03/2017 10:15 AM RBC 3.00 (L) 10/03/2017 10:15 AM HGB 10.0 (L) 10/03/2017 10:15 AM HCT 28.8 (L) 10/03/2017 10:15 AM MCV 95.9 10/03/2017 10:15 AM MCH 33.2 10/03/2017 10:15 AM MCHC 34.6 10/03/2017 10:15 AM RDW 16.3 (H) 10/03/2017 10:15 AM PLTCT 327 10/03/2017 10:15 AM MPV 6.3 (L) 10/03/2017 10:15 AM Lab Results Component Value Date/Time NEUT 46 10/03/2017 10:15 AM ANC 1.30 (L) 10/03/2017 10:15 AM LYMA 28 10/03/2017 10:15 AM ALC 0.80 (L) 10/03/2017 10:15 AM CHRIS 24 (H) 10/03/2017 10:15 AM AMC 0.70 10/03/2017 10:15 AM EOSA 1 10/03/2017 10:15 AM AEC 0.00 10/03/2017 10:15 AM BASA 1 10/03/2017 10:15 AM ABC 0.00 10/03/2017 10:15 AM OK to treat with these counts Assessment and Plan: Patient Active Problem List Diagnosis Date Noted Leiomyosarcoma (HCC) 02/28/2017 Priority: High Overview Note: Patient seen by RIVER DRIVER on 01/17/17 for annual exam. Upon examination [...] debulking of mass. Final path - Non press maintainer 14.1x9.1x13.5cm leiomyosarcoma of mesentery, margins neg but extremely close, thin capsule intact Mitotic rate: 8 /10 high-power carrera (HPF), with moderate nuclear atypia; necrosis 5 %; grade 1; (-) LVI; (+) smooth muscle actin and H-caldesmon; (-) CD 117, DOG-1, ER (minimal focal faint staining for HI) Staging CT chest 03/11/17 showed multiple small [...] Repeat echo 09/19/17 showed preserved EF at 60% . Now here after 5th cycle. Called in [...] cycle #6 doxo + olara this week, dose -reduced (60mg/m2 and 12mg/kg, respectively) due to side effect profile. Due to worsened neutropenia and fevers with cycle #5, incorporate Neulasta into day 8 portion of cycle, in hopes of preventing further neutropenic fevers. I have encouraged her to really re-focus on life and what she wants to accomplish/do/ enjoy in the meantime. She has a daughter 10mins from the clinic, where she can stay if need be. Restage after 8th cycle next. She is looking at [place] or [place] for next big trip ("somewhere warm"). Discussed with the patient and all questions fully answered. She will call me if any problems arise. Neuropathy (HCC) 02/28/2017 Priority: Low I told her it was okay to spray medel, as long as it wasn't tanning bed... 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
--- OUTSIDE RECORDS SUMMARY | 2017-10-13 21:39 | XMS REPORT | Encounter Summary ---
Author Author [facility] Organization [facility] Address Unknown Phone Unavailable Care Team Providers Care Adult Basic Education Manager Name Role Phone Dave Sanchez MD PCP Reason for Visit * Reason Comments Heme/Onc Care Encounter Details Date Type Department Care Team Description 10/10/2017 Office Visit [facility] Valentina Pérez APRN Leiomyosarcoma (HCC) Cancer Center - OP Exam [id number] (Primary Dx) [address] [place], [place] [address] [place] [address] [phone] [phone] Social History Tobacco Use Types Packs/Day Years Used Date Never Smoker Smokeless Tobacco: Never Used Alcohol Use Drinks/Week oz/Week Comments Yes 10 Cans of 12.0 beer 10 Shots of liquor Sex Assigned at Date Recorded Not on file as of this encounter Last Filed Vital Signs Vital Sign Reading Time Taken Blood Pressure 107/58 10/10/2017 10:35 AM HUMAN FACTORS ADVISOR LEAD Pulse - - Temperature 36.7 C (98.1 F) 10/10/2017 10:35 AM HUMAN FACTORS ADVISOR LEAD Respiratory Rate 16 10/10/2017 10:35 AM HUMAN FACTORS ADVISOR LEAD Oxygen Saturation - - Inhaled Oxygen - - Concentration Weight 56.2 kg (123 lb 12.8 oz) 10/10/2017 10:35 AM HUMAN FACTORS ADVISOR LEAD Height 160 cm (5' 2.99") 10/10/2017 10:35 AM HUMAN FACTORS ADVISOR LEAD Body Mass Index 21.94 10/10/2017 10:35 AM HUMAN FACTORS ADVISOR LEAD in this encounter Functional Status Functional Status [...] impairment: No 10/10/2017 as of this encounter Progress Notes * Valentina PérezGAGE - 10/10/2017 11:00 AM HUMAN FACTORS ADVISOR LEAD Formatting of this note may be different from the original. Name: Mary Yang : 1960 AGE: 56 y.o. DATE OF SERVICE: 10/10/2017 Subjective: Reason for Visit: Heme/Onc Care Mary Yang is a 56 y.o. female with Stage IV leiomyosarcoma here for Day 8 of cycle 6Olaratumab and doxorubicin, Olaratumab only. She states she had swelling in LE bilaterally on 10/07/17 and cough started same day. Swelling resolved with elevating her legs that evening. Cough has persisted. It is dry with no fever. Basically the same cough she has had each cycle. She felt terrible on 10/08/17 with no energy and arthralgias, but felt great on 10/09/17. No mouth sores. She has continued on maintenance Acyclovir. Appetite has been good. She is here with her mother. Leiomyosarcoma (HCC) Staging form: Soft Tissue Sarcoma, AJCC 7th Edition - Clinical stage from 06/16/2017: Stage IV (M1, G1) - Signed by Rudolph Cohn MD on 06/16/2017 History of Present Illness Patient seen by INSPECTOR COLD WORKING on 01/17/17 for annual exam. Upon examination [...] debulking of mass. Final path - Non shop fitter 14.1x9.1x13.5cm leiomyosarcoma of mesentery, margins neg but extremely close, thin capsule intact Mitotic rate: 8 /10 high-power carrera (HPF), with moderate nuclear atypia; necrosis 5 %; grade 1; (-) LVI; (+) smooth muscle actin and H- caldesmon; (-) CD 117, DOG-1, ER (minimal focal faint staining for NV) Staging CT chest 03/11/17 showed multiple small subcm right lung nodules, and no thoracic adenopathy. She has never had any previous CTs of chest. CT 06/06/17 showed new R hepatic lobe lesion as well as growth in B lung spots concerning for metastatic disease. MRI brain 06/10/17 showed no significant abnormality (was having some vision changes). 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 Review of Systems All other systems reviewed [...] Take 1 Tab by mouth daily. Vitals: 10/10/17 1035 BP: 107/58 Resp: 16 Temp: 36.7 C (98.1 F) TempSrc: Oral Weight: 56.2 kg (123 lb 12.8 oz) Height: 160 cm (62.99") Body mass index is 21.94 kg/m. Pain Score: Zero Pain Addressed: N/A Patient Evaluated for a Clinical Trial: No treatment clinical trial available for this patient. Eastern Cooperative Oncology Group performance status is 0, Fully active, able to carry on all pre-disease performance without restriction.. Physical Exam Constitutional: She is oriented to person, place, and time. She appears well- developedand well-nourished. HENT: Head: Normocephalic. Mouth/Throat: Oropharynx is clear and moist. Eyes: Pupils are equal, round, and reactive to light. Cardiovascular: Normal rateand regular rhythm. Pulmonary/Chest: Effort normaland breath sounds normal. Abdominal: Soft. Bowel sounds are normal. She exhibits no mass. Musculoskeletal: Normal range of motion. Lymphadenopathy: She has no cervical adenopathy. Neurological: She is alertand oriented to person, place, and time. Skin: No rashnoted. Psychiatric: She has a normal mood and affect. Her behavior is normal. Nursing noteand vitalsreviewed. CBC w/Diff Lab Results Component Value Date/Time WBC 1.7 (L) 10/10/2017 10:34 AM RBC 2.95 (L) 10/10/2017 10:34 AM HGB 9.7 (L) 10/10/2017 10:34 AM HCT 28.3 (L) 10/10/2017 10:34 AM MCV 95.9 10/10/2017 10:34 AM MCH 32.8 10/10/2017 10:34 AM MCHC 34.2 10/10/2017 10:34 AM RDW 15.5 (H) 10/10/2017 10:34 AM PLTCT 126 (L) 10/10/2017 10:34 AM MPV 6.2 (L) 10/10/2017 10:34 AM Lab Results Component Value Date/Time NEUT 59 10/10/2017 10:34 AM ANC 1.00 (L) 10/10/2017 10:34 AM LYMA 40 10/10/2017 10:34 AM ALC 0.70 (L) 10/10/2017 10:34 AM CHRIS 0 (L) 10/10/2017 10:34 AM AMC 0.00 10/10/2017 10:34 AM EOSA 0 10/10/2017 10:34 AM AEC 0.00 10/10/2017 10:34 AM BASA 1 10/10/2017 10:34 AM ABC 0.00 10/10/2017 10:34 AM Assessment and Plan: Stage IV leiomyosarcoma PLAN: Day 8 olaratumab today. Discussed Neulasta and using Claritin for bone pain. She will continue to monitor cough this week. CBC locally in 1 week. Questions and concerns addressed. She and her motherare in agreement with plan. in this encounter Plan of Treatment Not on fileas of this encounter Visit Diagnoses Diagnosis Leiomyosarcoma (HCC) - Primary Malignant neoplasm of connective and other soft tissue, site unspecified
--- OUTSIDE RECORDS SUMMARY | 2017-10-13 21:39 | XMS REPORT | Encounter Summary ---
Author Author [facility] Organization [facility] Address Unknown Phone Unavailable Care Team Providers Care Principal Consulting Engineer Name Role Phone Dave Sanchez MD PCP Reason for Visit * Reason Comments Heme/Onc Care * Treatment (Routine) Status Reason Specialty Diagnoses / Referred By Referred To Procedures Contact Contact Authorized Hematology Diagnoses Rudolph Cohn, Rudolph Leiomyosarcoma MD Dakotah Claire MD ([facility]) [address] OLARATUMAB + [place] [address] [address] Phone: Phone: P [phone] rocedures Fax: OLARATUMAB + [phone] DOXORUBICIN Encounter Details Date Type Department Care Team Description 10/10/2017 [facility] Elisa ValentinaGAGE bonilla [place] [address] Treatment [place] [id number] [place] [address] [place] [address] Social History Tobacco Use Types Packs/Day Years [...] impairment: No 10/10/2017 as of this encounter Discharge Instructions * Patient Instructions - Nedra Gandhi RN - 10/10/2017 1:35 PM BIT GRINDER Call Immediately to report the following: Uncontrolled nausea and/or vomiting, uncontrolled pain, or unusual bleeding. Temperature of 100.4 F or greater and/or any sign/symptom of infection (redness , warmth, tenderness) Painful mouth or difficulty swallowing Red, cracked, or painful hands and/or feet Diarrhea Swelling of arms or legs Rash Important Phone Numbers: OP Cancer Center Main Number (answered 24 hours a day) [phone] Cancer Center Scheduling (appointments) [phone] OR [phone] Cancer Action (for nutritional supplements) [phone] in this encounter Progress Notes * Nedra Gandhi RN - 10/10/2017 1:30 PM BIT GRINDER Cycle 6, Day 8 LARTRUVO + NEULASTA Port accessed per protocol, labs collected. Patient seen by KEVYN Montgomery. OK to treat, labs OK to treat. Patient tolerated infusion well. Port de-accessed per protocol, heparinized. Patient tolerated Neulasta injection well. Discharged in stable condition with mother. CHEMO NOTE Verified chemo consent signed and in chart. Verified initiate chemo order in O2 Blood return positive via: Port (Single and Accessed) BSA and dose double checked (agree with orders as written) with: yes Labs/applicable tests checked: CBC Chemo regime: Drug/cycle/day LARTRUVO C6 D8 Rate verified and armband double checkwith second RN: yes Patient education offered and stated understanding. Denies questions at this time. in this encounter Miscellaneous Notes * Addendum Note - Luly Hubbard - 10/13/2017 7:48 AM BIT GRINDER Encounter addended by: Luly Hubbard on: 10/13/2017 7:48 AM
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 Administered Medications Medication Order MAR Action Action Date Dose Rate Site dexamethasone (DECADRON) 12 mg in sodium Given - New 10/10/2017 12 mg 300 mL/hr chloride 0.9% (NS) 50 mL IVPB Bag 11:37 BIT GRINDER 12 mg, Intravenous, 50 mL, Administer over 10 Minutes, ONCE, 1 dose, 10/10/17 at 1115 diphenhydrAMINE (BENADRYL) injection 25 Given 10/10/2017 25 mg mg 11:21 BIT GRINDER 25 mg, Intravenous, ONCE, 1 dose, 10/10/17 at 1115 heparin lock flush PF syringe 500 Units Given 10/10/2017 500 Units 500 Units, Intra-catheter, ONCE, 1 dose, 13:15 BIT GRINDER 10/10/17 at 1115, NOTE: This is a HIGH ALERT Medication. olaratumab (LARTRUVO) 664.8 mg in sodium Given - New 10/10/2017 664.8 mg 250 mL/hr chloride 0.9% (NS) 250 mL IVPB Bag 12:13 BIT GRINDER 664.8 mg (12 mg/kg 55.4 kg Treatment plan recorded weight), Intravenous, 250 mL, Administer over 60 Minutes, ONCE, 1 dose, 10/10/17 at 1145, Allow infusion to reach room temp prior to administration. For Grade 1 or 2 infusion-related reactions: Interrupt infusion; after resolution resume with the rate reduced by 50%. Grade 3 or 4: Discontinue permanently. SPECIAL HANDLING PRECAUTIONS NOTE: This is a HIGH ALERT Medication. pegfilgrastim (NEULASTA) syringe 6 mg Given 10/10/2017 6 mg Abdominal 6 mg, Subcutaneous, ONCE, 1 dose, Mon 13:14 BIT GRINDER Tissue 10/10/17 at 1245, -- Not for IV Push administration -- in this encounter
--- OUTSIDE RECORDS SUMMARY | 2017-10-13 21:39 | XMS REPORT | Encounter Summary ---
Author Author [facility] Organization [facility] Address Unknown Phone Unavailable Care Team Providers Care Liquor Department Manager Name Role Phone Dave Sanchez MD PCP Reason for Visit * Reason Comments Care Coordination Encounter Details Date Type Department Care Team Description 10/13/2017 Telephone [facility] Rudolph Cohn Care Coordination Cancer Center - OP Exam MD [place] [address] [phone] Social History Tobacco Use Types Packs/Day [...] impairment: No 10/10/2017 as of this encounter Miscellaneous Notes * Telephone Encounter - Aimee Fink RN - 10/13/2017 3:44 PM DATA SYSTEMS ANALYST Bonifacio calling with update on Ariane. Bonifacio states that yesterday Ariane began complaining that her tongue hurt. This morning, her tongue hurt worse and she had developed a fever. They administered Tylenol and went to see Dr. Sanchez. Dr. Sanchez felt that she may have had an allergy to neulasta. He gave her benadryl and instructed them to go to ED if tongue begins to swell or if condition worsen. No mouth sores noted. Fever again in afternoon, came down with tylenol. I instrucuted Bonifacio to call us back if still febrile tomorrow. He verbalized understanding. in this encounter Plan of Treatment Not on fileas of this encounter Visit Diagnoses Not on filein this encounter
--- OUTSIDE RECORDS SUMMARY | 2017-10-13 21:40 | XMS REPORT | Encounter Summary ---
Author Author [facility] Organization [facility] Address Unknown Phone Unavailable Care Team Providers Care Public Relations Consultant Name Role Phone Dave Sanchez MD PCP Encounter Details Date Type Department Care Team Description 09/30/[address] [facility] Lalit [facility] - OP Exam [place] [id number] [place] [phone] Social History Tobacco Use Types Packs/Day Years [...] impairment: No 09/13/2017 as of this encounter Plan of Treatment Not on fileas of this encounter Visit Diagnoses Not on filein this encounter
--- OUTSIDE RECORDS SUMMARY | 2017-10-13 21:40 | XMS REPORT | Encounter Summary ---
Author Author [facility] Organization [facility] Address Unknown Phone Unavailable Care Team Providers Care Process Control Specialist Name Role Phone Dave Sanchez MD PCP Encounter Details Date Type Department Care Team Description 09/29/2017 Orders Only [facility] Lalit [facility] - OP Exam MD [place] [phone] [place] [phone] Social History Tobacco Use Types Packs/Day Years [...]
--- OUTSIDE RECORDS SUMMARY | 2017-10-13 21:40 | XMS REPORT | Encounter Summary ---
Author Author [facility] Organization [facility] Address Unknown Phone Unavailable Care Team Providers Care Wallpaperer Name Role Phone Dave Sanchez MD PCP Reason for Referral * Test Status Reason Specialty Diagnoses / Referred By Referred To Procedures Contact Contact No Auth Needed Cardiology Diagnoses Rudolph Cohn-Carolyn Echo/Pv Leiomyosarcoma MD [place] [address] ([facility]) [address] P [facility] [address] 2-D Phone: Phone: ECHOCARDIOGRAM [phone] ONLY Fax: MD ECHO [phone] TRANSTHORAC R-T 2D W/WO M-MODE REC COMP * Test Status Reason Specialty Diagnoses / Referred By Referred To Procedures Contact Contact No Auth Needed Cardiology Diagnoses Rudolph Cohn Echo/Pv Leiomyosarcoma MD [place] [address] ([facility]) [address] P [facility] [address] 2-D Phone: Phone: ECHOCARDIOGRAM [phone] ONLY Fax: MD ECHO [phone] TRANSTHORAC R-T 2D W/WO M-MODE REC COMP Reason for Visit * Test Status Reason Specialty Diagnoses / Referred By Referred To Procedures Contact Contact No Auth Needed Cardiology Diagnoses Rudolph Cohn Echo/Pv Leiomyosarcoma MD [place] [address] ([facility]) [address] P [facility] [address] 2-D Phone: Phone: BRIANNA [phone] ONLY Fax: MD ECHO [phone] TRANSTHORAC R-T 2D W/WO M-MODE REC COMP Encounter Details Date Type Department Care Team Description 09/19/2017 [facility] Rudolph Cohn Encounter [address] [place] MD [address] [place] [address] [place] [address] [phone] Social History Tobacco Use Types Packs/Day Years [...] impairment: No 09/13/2017 as of this encounter Medications at Time of Discharge Medication Sig. Disp. Refills Start Date End Date acyclovir (ZOVIRAX) 400 Take 1 tablet by mouth 60 tablet 3 07/18/2017 mg tablet every 12 hours. acyclovir (ZOVIRAX) 800 Take 1 tablet by mouth 14 tablet 0 07/18/2017 mg tablet every 12 hours. calcium carbonate/vitamin Take 1 Tab by mouth [...] tablet Take 1 Tab by mouth daily. dexamethasone (DECADRON) Take 2 tablets by mouth 30 tablet 3 201609/21/2017 4 mg tabletIndications: daily. On Days 2-4 of Leiomyosarcoma (HCC) each cycle, as needed for acute nausea prednisone (DELTASONE) 50 Take 1 tablet by mouth 5 tablet 0 201609/21/2017 mg tabletIndications: daily with breakfast. Upper respiratory tract infection, unspecified type, Leiomyosarcoma (HCC) as of this encounter Plan of Treatment Not on fileas of this encounter Results * 2-D ECHOCARDIOGRAM ONLY (09/19/2017 1:32 PM) [...] The global longitudinal strain is - 17.6%. in this encounter 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
--- OUTSIDE RECORDS SUMMARY | 2017-10-13 21:40 | XMS REPORT | Encounter Summary ---
Author Author [facility] Organization [facility] Address Unknown Phone Unavailable Care Team Providers Care Senior Accounts Payable Clerk Name Role Phone Dave Sanchez MD PCP Encounter Details Date Type Department Care Team Description 10/03/2017 [facility] Rudolph Cohn [facility] - OP Lab MD [place] [id number] [place] [id number] [place] [address] [phone] Social History Tobacco Use Types Packs/Day Years [...] by mouth daily. as of this encounter Plan of Treatment Not on fileas of this encounter 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
--- OUTSIDE RECORDS SUMMARY | 2017-10-13 21:40 | XMS REPORT | Encounter Summary ---
Author Author [facility] Organization [facility] Address Unknown Phone Unavailable Care Team Providers Care Ammonia Print Operator Name Role Phone Dave Sanchez MD PCP Encounter Details Date Type Department Care Team Description 09/30/2017 Orders Only [facility] Michelle Lundberg [facility] Cancer Center - OP Pharmacy [id number] [place] [address] Social History Tobacco Use Types Packs/Day Years [...]
--- OUTSIDE RECORDS SUMMARY | 2017-10-13 21:40 | XMS REPORT | Encounter Summary ---
Author Author [facility] Organization [facility] Address Unknown Phone Unavailable Care Team Providers Care Ent Physician Name Role Phone Dave Sanchez MD PCP Reason for Visit * Reason Comments Cough Encounter Details Date Type Department Care Team Description 09/20/2017 Telephone [facility] Rudolph Cohn [facility] - OP Exam [place] [address] [phone] Social History Tobacco Use Types Packs/Day [...] impairment: No 09/13/2017 as of this encounter Miscellaneous Notes * Telephone Encounter - Margaret Peña RN - 09/20/2017 4:27 PM CONTRACT ENGINEER Ariane called to report that she has a cough "again" similar to what she had a few weeks ago but she feels like this time it is coming on more quickly. She said that she went to [place] over the weekend so she stated "I could have picked up something on the plane" but it feels very similar to the cough she had previously. She denies drainage, congestion or sore throat. She reports a dry cough that she is taking tessalon perles but they only "somewhat" help for a couple hours. She said that she didn't sleep much at all last night due to the cough and she said that she continues to take her dexamethasone medication as directed per her treatment plan but it has not helped along with some OTC cold medication for cough. Denies fever but she said that she has been taking Tylenol prn for headaches or body aches. Denies any other symptoms other than the fatigue and cough. Reviewed with Valentina Pérez APRN and patient will go to PCP tomorrow to have a chest xray also ordered and will call us to follow up, continue to support symptoms with OTC medications and I asked for the patient to take her temperature prior to taking tylenol. Tmax of 99.4. She also asked for lab script to be emailed to her because they at the local lab facility. Will continue to follow up tomorrow. Patient knows to call if symptoms get worse overnight, becomes febrile or she needs to report to local ER. in this encounter Plan of Treatment Not on fileas of this encounter Results * CBC AND DIFF (09/27/2017) Component Value Ref Range White Blood Cells RBC Hemoglobin Hematocrit MCV MCH MCHC Platelet Count MPV RDW Neutrophils Absolute Neutrophil Count Lymphocytes Absolute Lymph Count Monocytes Absolute Monocyte Count Eosinophil Absolute Eosinophil Count Basophils Absolute Basophil Count Atypical Lym Metamyelocyte Myelocyte Promyelocyte Blast RBC Morph WBC Morphology Specimen Performing Laboratory [facility] [address] , [address] [place] [address] in this encounter Visit Diagnoses Diagnosis Leiomyosarcoma (HCC) - Primary Malignant neoplasm of connective and other soft tissue, site unspecified
--- OUTSIDE RECORDS SUMMARY | 2017-10-13 21:40 | XMS REPORT | Encounter Summary ---
Author Author [facility] Organization [facility] Address Unknown Phone Unavailable Care Team Providers Care French Drawer Name Role Phone Dave Sanchez MD PCP Reason for Visit * Reason Comments Heme/Onc Care Encounter Details Date Type Department Care Team Description 09/19/2017 Office Visit [facility] Kandy Pérez APRN Leiomyosarcoma (HCC) Cancer Center - OP Exam [address] (Primary Dx) [address] [place], [place] [address] [place] [address] [phone] [phone] Social History Tobacco Use Types Packs/Day Years Used Date Never Smoker Smokeless Tobacco: Never Used Alcohol Use Drinks/Week oz/Week Comments Yes 10 Cans of 12.0 beer 10 Shots of liquor Sex Assigned at Date Recorded Not on file as of this encounter Last Filed Vital Signs Vital Sign Reading Time Taken Blood Pressure 130/66 09/19/2017 9:42 AM DRY BOX TENDER Pulse 108 09/19/2017 9:42 AM DRY BOX TENDER Temperature 36.8 C (98.3 F) 09/19/2017 9:42 AM DRY BOX TENDER Respiratory Rate 16 09/19/2017 9:42 AM DRY BOX TENDER Oxygen Saturation 97% 09/19/2017 9:42 AM DRY BOX TENDER Inhaled Oxygen - - Concentration Weight 55.8 kg (123 lb) 09/19/2017 9:42 AM DRY BOX TENDER Height 160 cm (5' 2.99") 09/19/2017 9:42 AM DRY BOX TENDER Body Mass Index 21.8 09/19/2017 9:42 AM DRY BOX TENDER in this encounter Functional Status Functional Status [...] as of this encounter Progress Notes * Kandy Pérez APRN - 09/19/2017 9:30 AM DRY BOX TENDER Formatting of this note may be different from the original. Name: Mary Yang : 1960 AGE: 56 y.o. DATE OF SERVICE: 09/19/2017 Subjective: Reason for Visit: Heme/Onc Care Mary Yang is a 56 y.o. 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 She is tired because she was really active on her trip in [facility] [place]. She had a great time. Her last scan looked good and she is happy with that. No mouth sores. She has continued on maintenance Acyclovir. Appetite has been good. She is here with her mother. Leiomyosarcoma (HCC) Staging form: Soft Tissue Sarcoma, AJCC 7th Edition - Clinical stage from 06/16/2017: Stage IV (M1, G1) - Signed by Rudolph Cohn MD on 06/16/2017 History of Present Illness Patient seen by THREAD WINDER AUTOMATIC on 01/17/17 for annual exam. Upon examination [...] debulking of mass. Final path - Non cytopathology technologist 14.1x9.1x13.5cm leiomyosarcoma of mesentery, margins neg but extremely close, thin capsule intact Mitotic rate: 8 /10 high-power carrera (HPF), with moderate nuclear atypia; necrosis 5 %; grade 1; (-) LVI; (+) smooth muscle actin and H- caldesmon; (-) CD 117, DOG-1, ER (minimal focal faint staining for OK) Staging CT chest 03/11/17 showed multiple small [...] 06/13/17 c/w metastatic leiomyosarcoma. Review of Systems Objective: acyclovir (ZOVIRAX) 400 mg tablet Take 1 tablet by mouth every 12 hours. acyclovir (ZOVIRAX) 800 mg tablet Take 1 tablet by mouth every 12 hours. calcium carbonate/vitamin D-3 (OSCAL-500+D) 1250 mg/200 unit tablet Take 1 Tab by mouth daily. Calcium Carb 1250mg delivers 500mg elemental Ca cholecalciferol (VITAMIN D-3) 1,000 units tablet Take 1,000 Units by mouth daily. dexamethasone (DECADRON) 4 mg tablet Take 2 tablets by mouth daily as needed on days 2-4 of each cycle. dexamethasone (DECADRON) 4 mg tablet Take 2 tablets by mouth daily. On Days 2-4 of each cycle, as needed for acute nausea diphenhydrAMINE/lidocaine/antacid (#) (MAGIC MOUTHWASH) 1:1:1 oral suspension [...] 8 hours as needed (nausea and vomiting). prednisone (DELTASONE) 50 mg tablet Take 1 tablet by mouth daily with breakfast. prochlorperazine maleate (COMPAZINE) 10 mg tablet Take 1 tablet by mouth every 6 hours as needed for Nausea or Vomiting. senna/docusate (SENOKOT-S) 8.6/50 mg tablet Take 1 Tab by mouth twice daily. traMADol (ULTRAM) 50 mg tablet Take 1-2 Tabs by mouth every 6 hours as needed. vitamins, multiple tablet Take 1 Tab by mouth daily. Vitals: 09/19/17 0942 BP: 130/66 Pulse: 108 Resp: 16 Temp: 36.8 C (98.3 F) TempSrc: Oral SpO2: 97% Weight: 55.8 kg (123 lb) Height: 160 cm (62.99") Body mass index is 21.8 kg/(m^2). Pain Score: Zero Pain Addressed: N/A Patient Evaluated for a Clinical Trial: No treatment clinical trial available for this patient. Eastern Cooperative Oncology Group performance status is 0, Fully active, able to carry on all pre-disease performance without restriction.. Physical Exam Constitutional: She is oriented to person, place, and time. She appears well- developed and well-nourished. HENT: Head: Normocephalic. Mouth/Throat: Oropharynx is clear and moist. Eyes: Pupils are equal, round, and reactive to light. Cardiovascular: Normal rate and regular rhythm. Pulmonary/Chest: Effort normal and breath sounds normal. Abdominal: Soft. Bowel sounds are normal. She exhibits no mass. Musculoskeletal: Normal range of motion. Lymphadenopathy: She has no cervical adenopathy. Neurological: She is alert and oriented to person, place, and time. Skin: No rash noted. Psychiatric: She has a normal mood and affect. Her behavior is normal. Nursing note and vitals reviewed. CBC w/Diff Lab Results Component Value Date/Time WBC 4.1 (L) 09/19/2017 09:41 AM RBC 3.33 (L) 09/19/2017 09:41 AM HGB 10.9 (L) 09/19/2017 09:41 AM HCT 32.1 (L) 09/19/2017 09:41 AM MCV 96.4 09/19/2017 09:41 AM MCH 32.8 09/19/2017 09:41 AM MCHC 34.1 09/19/2017 09:41 AM RDW 17.1 (H) 09/19/2017 09:41 AM PLTCT 189 09/19/2017 09:41 AM MPV 6.0 (L) 09/19/2017 09:41 AM Lab Results Component Value Date/Time NEUT 83 (H) 09/19/2017 09:41 AM ANC 3.40 09/19/2017 09:41 AM LYMA 15 (L) 09/19/2017 09:41 AM ALC 0.60 (L) 09/19/2017 09:41 AM CHRIS 1 (L) 09/19/2017 09:41 AM AMC 0.00 09/19/2017 09:41 AM EOSA 1 09/19/2017 09:41 AM AEC 0.00 09/19/2017 09:41 AM BASA 0 09/19/2017 09:41 AM ABC 0.00 09/19/2017 09:41 AM Assessment and Plan: Stage IV leiomyosarcoma PLAN: Day 8 olaratumab today. She has ECHO today and would like someone to call her with results. Questions and concerns addressed. She and her motherare in agreement with plan. in this encounter Miscellaneous Notes * Addendum Note - Kandy Pérez APRN - 09/21/2017 3:00 PM DRY BOX TENDER Addended by: KANDY PÉREZ on: 09/21/2017 03:00 PM Modules accepted: Orders in this encounter Plan of Treatment Not on fileas of this encounter Visit Diagnoses Diagnosis Leiomyosarcoma (HCC) - Primary Malignant neoplasm of connective and other soft tissue, site unspecified
--- OUTSIDE RECORDS SUMMARY | 2017-10-13 21:40 | XMS REPORT | Encounter Summary ---
Author Author [facility] Organization [facility] Address Unknown Phone Unavailable Care Team Providers Care Boilers Inspector Name Role Phone Dave Sanchez MD PCP Reason for Visit * Reason Comments Results Encounter Details Date Type Department Care Team Description 09/27/2017 Telephone [facility] Rudolph Cohn [facility] - OP Exam MD [place] [address] [phone] Social History Tobacco Use Types Packs/Day [...] Telephone Encounter - Margaret Peña RN - 09/27/2017 11:57 AM UNIFORM CAP OPERATOR Most recent CBC results discussed with Ariane. Neutropenic precautions discussed. Patient reports that she is feeling better than last week. She said that she went home Tuesday after work and slept most of the weekend. She is going to engineering production worker the rest of today and will go into work as needed. We discussed hand washing and to call with any fevers or overall not feeling well. in this encounter Plan of Treatment Not on fileas of this encounter Visit Diagnoses Not on filein this encounter
--- OUTSIDE RECORDS SUMMARY | 2017-10-13 21:40 | XMS REPORT | Encounter Summary ---
Author Author [facility] Organization [facility] Address Unknown Phone Unavailable Care Team Providers Care Block Out Machine Operator Name Role Phone Dave Sanchez MD PCP Reason for Visit * Reason Comments Cough Encounter Details Date Type Department Care Team Description 09/21/2017 Telephone [facility] Rudolph Cohn [facility] - OP Exam MD [place] [address] [phone] Social History Tobacco Use Types Packs/Day [...] encounter Miscellaneous Notes * Telephone Encounter - Yesenia Herrera RN - 09/21/2017 3:30 PM INTERNATIONAL SALES REPRESENTATIVE Pt. states did not see Dr. Sanchez today, however did have CXR @ [facility] [place] [place]. Informed pt. today CXR showed "no acute appearing abnormality." Pt. reports awake all night last night with dry nonproductive cough. States temp 99.1 today. Denies shortness of breath or wheezing. Per Dr. Cohn recommended pt. take extra 8mg (2 tabs) of dexamethasone tonight. Also, obtain albuterol inhaler to try for relieving cough. Pt. agreed to obtain prescriptions from [facility] pharmacy. 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
--- OUTSIDE RECORDS SUMMARY | 2017-10-13 21:40 | XMS REPORT | Encounter Summary ---
Author Author [facility] Organization [facility] Address Unknown Phone Unavailable Care Team Providers Care Home Teaching Grades 9 Thru 12 Teacher Name Role Phone Dave Sanchez MD PCP Encounter Details Date Type Department Care Team Description 09/29/2017 Orders Only [facility] Rudolph Cohn Leiomyosarcoma (HCC) Cancer Center - OP Exam [place] [address] [phone] Social History Tobacco Use Types Packs/Day [...] Morphology Specimen Performing Laboratory [facility] [address] , [address] [place] [address] in this encounter 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
--- OUTSIDE RECORDS SUMMARY | 2017-10-13 21:40 | XMS REPORT | Encounter Summary ---
Author Author [facility] Organization [facility] Address Unknown Phone Unavailable Care Team Providers Care Beater Tender Name Role Phone Dave Sanchez MD PCP Encounter Details Date Type Department Care Team Description 09/19/2017 Hospital [facility] Valentina Pérez APRN Encounter Cancer Center - OP Lab [id number] [place] [address] [address] [place] [address] [phone] Social History Tobacco Use Types Packs/Day Years [...] this encounter Results * COMPREHENSIVE METABOLIC PANEL (09/19/2017 9:41 AM) Component Value Ref Range Sodium 137 137 - 147 MMOL/L Potassium 3.8 3.5 - 5.1 MMOL/L Chloride 102 98 - 110 MMOL/L Glucose 119 (H) 70 - 100 MG/DL Blood Urea Nitrogen 12 7 - 25 MG/DL Creatinine 0.53 0.4 - 1.00 MG/DL Calcium 9.4 8.5 - 10.6 MG/DL Total Protein 6.4 6.0 - 8.0 G/DL Total Bilirubin 0.8 0.3 - 1.2 MG/DL Albumin 4.1 3.5 - 5.0 G/DL Alk Phosphatase 39 25 - 110 U/L AST (SGOT) 23 7 - 40 U/L CO2 26 21 - 30 MMOL/L ALT (SGPT) 17 7 - 56 U/L Anion Gap 9 3 - 12 eGFR Non >60 >60 [...] Performing Laboratory Blood [facility] [address] [place] [address] * CBC AND DIFF (09/19/2017 9:41 AM) Component Value Ref Range White Blood Cells 4.1 (L) 4.5 - 11.0 K/UL RBC 3.33 (L) 4.0 - 5.0 M/UL Hemoglobin 10.9 (L) 12.0 - 15.0 GM/DL Hematocrit 32.1 (L) 36 - 45 % MCV 96.4 80 - 100 FL MCH 32.8 26 - 34 PG MCHC 34.1 32.0 - 36.0 G/DL RDW 17.1 (H) 11 - 15 % Platelet Count 189 150 - 400 K/UL MPV 6.0 (L) 7 - 11 FL Neutrophils 83 (H) 41 - 77 % Lymphocytes 15 (L) 24 - 44 % Monocytes 1 (L) 4 - 12 % Eosinophils 1 0 - 5 % Basophils 0 0 - 2 % Absolute Neutrophil Count 3.40 1.8 - 7.0 K/UL Absolute Lymph Count 0.60 (L) 1.0 - 4.8 K/UL Absolute Monocyte Count 0.00 0 - 0.80 K/UL Absolute Eosinophil Count 0.00 0 - 0.45 K/UL Absolute Basophil Count 0.00 0 - 0.20 K/UL Specimen Performing Laboratory Blood [facility] [address] [address] in this encounter 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
--- OUTSIDE RECORDS SUMMARY | 2017-10-13 21:40 | XMS REPORT | Encounter Summary ---
Author Author [facility] Organization [facility] Address Unknown Phone Unavailable Care Team Providers Care Specifications Checker Name Role Phone Dave Sanchez MD PCP Reason for Visit * Reason Comments Fever fever/neutropenia Encounter Details Date Type Department Care Team Description 09/29/2017 Telephone [facility] Rudolph Cohn Fever ( fever/neutropenia) Cancer Center - OP Exam MD [place] [id number] [place] [phone] Social History Tobacco Use Types Packs/Day Years [...] Telephone Encounter - Margaret Peña RN - 09/29/2017 2:33 PM ANALYSIS CONSULTANT Ariane called with fever x 2 days. She reports that she had a fever yesterday morning around 8am Tmax 101.9, she took two Tylenol and it went down but she did not recheck it she just said that she could "feel" that she was jaron but then rechecked it when she started to get a headache and she was 99.7 around noon. She took two tylenol and she felt better and was able to continue to work but then spiked a fever again last night around 8:30pm of 101. She woke up this morning and went to work and then started to not feel very well again and she took her temp and it was 99.7 she took another dose of tylenol and left work. She continues to have her cough (dry, non-non productive) it is not any better or worse from last week, runny nose, mouth sores. I instructed patient that she needs to go to her local ER for fever/neutropenia workup. I explained to her the importance of calling the clinic or the hr receptionist physician at the first sign of a fever as was discussed most recently on Tuesday when I called her with her results of ANC=0. Patient reported that she would call her local PCP so he could also be a part of her care when she arrives in the ER. All of this was reviewed with Valentina Pérez APRN. in this encounter Plan of Treatment Not on fileas of this encounter Visit Diagnoses Not on filein this encounter
--- OUTSIDE RECORDS SUMMARY | 2017-10-13 21:41 | XMS REPORT | Encounter Summary ---
Author Author [facility] Organization [facility] Address Unknown Phone Unavailable Care Team Providers Care Automation Software Engineer Name Role Phone Dave Sanchez MD PCP Encounter Details Date Type Department Care Team Description 08/01/2017 Procedure Pass [facility] Radiology [address] [place] [address] Social History Tobacco Use Types Packs/Day Years Used Date Never Smoker Smokeless Tobacco: Never Used Alcohol Use Drinks/Week oz/Week Comments Yes 10 Cans of 12.0 beer 10 Shots of liquor Sex Assigned at Date Recorded Not on file as of this encounter Functional Status Functional Status Response Date of Assessment Does the patient have a hearing impairment: No 08/01/2017 Does the patient have a visual impairment: No 08/01/2017 Does the patient have impaired ambulation: No 08/01/2017 Does the patient have an activity of daily living No 08/01/2017 (ADL) impairment: Does the patient have an instrumental activity of No 08/01/2017 daily living (IADL) impairment: Cognitive Status Response Date of Assessment Does the patient have a cognitive impairment: No 08/01/2017 as of this encounter Plan of Treatment Not on fileas of this encounter Visit Diagnoses Not on filein this encounter
--- OUTSIDE RECORDS SUMMARY | 2017-10-13 21:41 | XMS REPORT | Encounter Summary ---
Author Author [facility] Organization [facility] Address Unknown Phone Unavailable Care Team Providers Care Campaign Advisor Name Role Phone Dave Sanchez MD PCP Encounter Details Date Type Department Care Team Description 09/13/2017 [facility] Rudolph Cohn [facility] - OP Lab [place] [address] [place] [id number] [place] [address] [phone] Social History Tobacco Use Types Packs/Day Years [...] this encounter Results * COMPREHENSIVE METABOLIC PANEL (09/13/2017 1:02 PM) Component Value Ref Range Sodium 138 137 - 147 MMOL/L Potassium 3.5 3.5 - 5.1 MMOL/L Chloride 103 98 - 110 MMOL/L Glucose 148 (H) 70 - 100 MG/DL Blood Urea Nitrogen 13 7 - 25 MG/DL Creatinine 0.60 0.4 - 1.00 MG/DL Calcium 9.3 8.5 - 10.6 MG/DL Total Protein 6.2 6.0 - 8.0 G/DL Total Bilirubin 0.4 0.3 - 1.2 MG/DL Albumin 3.9 3.5 - 5.0 G/DL Alk Phosphatase 43 25 - 110 U/L AST (SGOT) 31 7 - 40 U/L CO2 28 21 - 30 MMOL/L ALT (SGPT) 22 7 - 56 U/L Anion Gap 7 3 - 12 eGFR Non >60 >60 [...] Performing Laboratory [facility] [address] [place] [address] * CBC AND DIFF (09/13/2017 1:02 PM) Component Value Ref Range White Blood Cells 3.1 (L) 4.5 - 11.0 K/UL RBC 3.20 (L) 4.0 - 5.0 M/UL Hemoglobin 10.5 (L) 12.0 - 15.0 GM/DL Hematocrit 30.9 (L) 36 - 45 % MCV 96.7 80 - 100 FL MCH 32.8 26 - 34 PG MCHC 33.9 32.0 - 36.0 G/DL RDW 18.3 (H) 11 - 15 % Platelet Count 303 150 - 400 K/UL MPV 6.0 (L) 7 - 11 FL Segmented Neutrophils 33 (L) 41 - 77 % Bands 7 0 - 10 % Lymphocytes 34 24 - 44 % Monocytes 20 (H) 4 - 12 % Eosinophil 2 0 - 5 % Basophil 3 (H) 0 - 2 % Metamyelocyte 1 % ANISO PRESENT HYPO PRESENT POIK PRESENT Ovalocyte PRESENT Platelet Estimate NORMAL Absolute Neutrophil Count 1.24 (L) 1.8 - 7.0 K/UL Manual Specimen Performing Laboratory Blood [facility] [address] [address] in this encounter 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
--- OUTSIDE RECORDS SUMMARY | 2017-10-13 21:41 | XMS REPORT | Encounter Summary ---
Author Author [facility] Organization [facility] Address Unknown Phone Unavailable Care Team Providers Care Loom Overhauler Name Role Phone Dave Sanchez MD PCP Reason for Visit * Treatment (Routine) Status Reason Specialty Diagnoses / Referred By Referred To Procedures Contact Contact Authorized Hematology Diagnoses Rudolph Cohn Benjamin Leiomyosarcoma MD [place] Claire MD ([facility]) [address] [place] + [place] [address] [place]ON Phone: Phone: P [phone] rocedures Fax: OLARATUMAB + [phone] DOXORUBICIN Encounter Details Date Type Department Care Team Description 09/13/2017 [facility] Rudolph Cohn [facility] - OP MD [place] Treatment [address] [address] [address], [place] [address] [place] [address] [phone] Social History Tobacco Use Types Packs/Day Years Used Date Never Smoker Smokeless Tobacco: Never Used Alcohol Use Drinks/Week oz/Week Comments Yes 10 Cans of 12.0 beer 10 Shots of liquor Sex Assigned at Date Recorded Not on file as of this encounter Last Filed Vital Signs Vital Sign Reading Time Taken Blood Pressure 116/74 09/13/2017 12:49 PM FARM MANAGER Pulse 95 09/13/2017 12:49 PM FARM MANAGER Temperature 36.8 C (98.3 F) 09/13/2017 12:49 PM FARM MANAGER Respiratory Rate 18 09/13/2017 12:49 PM FARM MANAGER Oxygen Saturation 98% 09/13/2017 12:49 PM FARM MANAGER Inhaled Oxygen - - Concentration Weight 56.9 kg (125 lb 6.4 oz) 09/13/2017 12:49 PM FARM MANAGER Height 160 cm (5' 2.99") 09/13/2017 12:49 PM FARM MANAGER Body Mass Index 22.22 09/13/2017 12:49 PM FARM MANAGER in this encounter Functional Status Functional Status [...] encounter Discharge Instructions * Patient Instructions - Yvette Leger RN - 09/13/2017 3:30 PM FARM MANAGER Call Immediately to report the following: Uncontrolled nausea and/or vomiting, uncontrolled pain, or unusual bleeding. Temperature of 100.4 F or greater and/or any sign/symptom of infection (redness , warmth, tenderness) Painful mouth or difficulty swallowing Red, cracked, or painful hands and/or feet Diarrhea Swelling of arms or legs Rash Important Phone Numbers: OP Cancer Center Main Number (answered 24 hours a day) [phone] Cancer Center Scheduling (appointments) [phone] OR [phone] Cancer Action (for nutritional supplements) [phone] in this encounter Medications at Time of [...] 2 tablets by mouth 30 tablet 3 10/23/ 2017 4 mg tablet daily as needed on [...] type, Leiomyosarcoma (HCC) as of this encounter Progress Notes * Yvette Leger, RN - 09/13/2017 4:21 PM FARM MANAGER CHEMO NOTE Verified chemo consent signed and in chart. Verified initiate chemo order in O2 Blood return positive via: Port (Power Port) BSA and dose double checked (agree with orders as written) with: yes Ariane Cade RN Labs/applicable tests checked: CBC and CMP Chemo regime: Adriamycin + Lartruvo C5 D1 Rate verified and armband double check with second RN: yes Patient education offered and stated understanding. Denies questions at this time. Patient states that she is doing well, no new issues. ANC 1.24 today - ok to treat per Dr. Cohn. Tolerated treatment well. Discharged in good condition. in this encounter Miscellaneous Notes * Addendum Note - Luly Hubbard - 09/16/2017 7:37 PM FARM MANAGER Encounter addended by: Luly Hubbard on: 09/16/2017 7:37 PM
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 Administered Medications Medication Order MAR Action Action Date Dose Rate Site dexamethasone (DECADRON) 12 mg in sodium Given - New 09/13/2017 12 mg 300 mL/hr chloride 0.9% (NS) 50 mL IVPB Bag 13:52 FARM MANAGER 12 mg, Intravenous, 50 mL, Administer over 10 Minutes, ONCE, 1 dose, 09/13/17 at 1345 dexrazoxane (Wallace Generic) 942 Given - New 09/13/2017 942 mg 1256 mL/hr mg in lactated ringers (LR) 314 mL IVPB Bag 15:38 FARM MANAGER 942 mg (600 mg/m2 1.57 m2 Treatment plan recorded BSA), Intravenous, 314 mL, Administer over 15 Minutes, ONCE, 1 dose, 09/13/17 at 1515, -- NOTE; THIS IS THE BRECKENRIGE GENERIC FORMULATION of dexrazoxane -- -- Administer diluted concentration over 15 minute IV infusion. Administer prior to doxorubicin. Administer doxorubicin within 30 minutes after completion of dexrazoxane. NURSING: To be administered by Chemotherapy Competency-validated nurse. NOTE: This is a HIGH ALERT Medication. SPECIAL TUBING REQUIRED diphenhydrAMINE (BENADRYL) injection 25 Given 09/13/2017 25 mg mg 13:50 FARM MANAGER 25 mg, Intravenous, ONCE, 1 dose, 09/13/17 at 1345 DOXOrubicin (ADRIAMYCIN) injection 94.2 Given 09/13/2017 94.2 mg mg 16:00 FARM MANAGER 94.2 mg (60 mg/m2 1.57 m2 Treatment plan recorded BSA), Intravenous, ONCE, 1 dose, 09/13/17 at 1530, Give IV push over 5- 10 minutes. Administer within 30 minutes of completion of dexrazoxane. PROTECT FROM LIGHT NURSING: To be administered by Chemotherapy Competency-validated nurse. NOTE: This is a HIGH ALERT Medication. SPECIAL TUBING REQUIRED fosaprepitant (EMEND) 150 mg in sodium Given - New 09/13/2017 150 mg 450 mL/hr chloride 0.9% (NS) 150 mL IVPB Bag 14:02 FARM MANAGER 150 mg, Intravenous, 150 mL, Administer over 20 Minutes, ONCE, 1 dose, 09/13/17 at 1345 olaratumab (LARTRUVO) 664.8 mg in sodium Given - New 09/13/2017 664.8 mg 250 mL/hr chloride 0.9% (NS) 250 mL IVPB Bag 14:41 FARM MANAGER 664.8 mg (12 mg/kg 55.4 kg Treatment plan recorded weight), Intravenous, 250 mL, Administer over 60 Minutes, ONCE, 1 dose, 09/13/17 at 1415, Allow infusion to reach room temp prior to administration. For Grade 1 or 2 infusion-related reactions: Interrupt infusion; after resolution resume with the rate reduced by 50%. Grade 3 or 4: Discontinue permanently. SPECIAL HANDLING PRECAUTIONS NOTE: This is a HIGH ALERT Medication. palonosetron(+) (ALOXI) injection 0.25 Given 09/13/2017 0.25 mg mg 13:49 FARM MANAGER 0.25 mg, Intravenous, ONCE, 1 dose, 09/13/17 at 1345 in this encounter
--- OUTSIDE RECORDS SUMMARY | 2017-10-13 21:41 | XMS REPORT | Encounter Summary ---
Author Author [facility] Organization [facility] Address Unknown Phone Unavailable Care Team Providers Care Ramp Attendant Name Role Phone Dave Sanchez MD PCP Reason for Visit * Reason Comments Heme/Onc Care * Treatment (Routine) Status Reason Specialty Diagnoses / Referred By Referred To Procedures Contact Contact Authorized Hematology Diagnoses Rudolph Cohn, Rudolph Leiomyosarcoma MD [place] Claire MD ([facility]) [address] [place] + [place] [address] [place] Phone: Phone: P [phone] rocedures Fax: OLARATUMAB + [phone] DOXORUBICIN Encounter Details Date Type Department Care Team Description 09/19/2017 [facility] Valentina Pérez APRN [place] [address] Treatment [place] [address] [place] [address] [place] [address] Social History Tobacco Use Types [...] Patient Instructions - Alta Mancera RN - 09/19/2017 9:44 AM RADIOLOGY ORDERLY Call Immediately to report the following: Uncontrolled nausea and/or vomiting, uncontrolled pain, or unusual bleeding. Temperature of 100.4 F or greater and/or any sign/symptom of infection (redness , warmth, tenderness) Painful mouth or difficulty swallowing Red, cracked, or painful hands and/or feet Diarrhea Swelling of arms or legs Rash Important Phone Numbers: OP Cancer Center Main Number (answered 24 hours a day) [phone] Cancer Center Scheduling (appointments) [phone] OR 3290 [facility] (for nutritional supplements) [phone] in this encounter Medications at Time of [...] Progress Notes * Alta Mancera, RN - 09/19/2017 9:43 AM RADIOLOGY ORDERLY PT here for treatment. Pt states she feels well. Port accessed and labs drawn, pt tolerated well. Pt to see Valentina ALMONTE CHEMO NOTE Verified chemo consent signed and in chart. Verified initiate chemo order in O2 Blood return positive via: Port (Single) BSA and dose double checked (agree with orders as written) with: yes Labs/applicable tests checked: CBC and CMP Chemo regime: Evgeny Latruvo Cycle 5 Day 8 Rate verified and armband double checkwith second RN: yes Patient education offered and stated understanding. Denies questions at this time. Pt tolerated treatment well. Port packed with heparin and deaccessed. Pt discharged in stable, ambulatory condition. 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 Administered Medications Medication Order MAR Action Action Date Dose Rate Site dexamethasone (DECADRON) 12 mg in sodium Given - New 09/19/2017 12 mg 300 mL/hr chloride 0.9% (NS) 50 mL IVPB Bag 10:08 RADIOLOGY ORDERLY 12 mg, Intravenous, 50 mL, Administer over 10 Minutes, ONCE, 1 dose, Tue09/19/17 at 1000 diphenhydrAMINE (BENADRYL) injection 25 Given 09/19/2017 25 mg mg 10:06 RADIOLOGY ORDERLY 25 mg, Intravenous, ONCE, 1 dose, Tue09/19/17 at 1000 heparin lock flush PF syringe 500 Units Given 09/19/2017 500 Units 500 Units, Intravenous, ONCE, 1 dose, 11:52 RADIOLOGY ORDERLY Tue09/19/17 at 0945, NOTE: This is a HIGH ALERT Medication. olaratumab (LARTRUVO) 664.8 mg in sodium Given - New 09/19/2017 664.8 mg 250 mL/hr chloride 0.9% (NS) 250 mL IVPB Bag 10:48 RADIOLOGY ORDERLY 664.8 mg (12 mg/kg 55.4 kg Treatment plan recorded weight), Intravenous, 250 mL, Administer over 60 Minutes, ONCE, 1 dose, Tue09/19/17 at 1030, Allow infusion to reach room temp prior to administration. For Grade 1 or 2 infusion-related reactions: Interrupt infusion; after resolution resume with the rate reduced by 50%. Grade 3 or 4: Discontinue permanently. SPECIAL HANDLING PRECAUTIONS NOTE: This is a HIGH ALERT Medication. in this encounter
--- OUTSIDE RECORDS SUMMARY | 2017-10-13 21:41 | XMS REPORT | Encounter Summary ---
Author Author [facility] Organization [facility] Address Unknown Phone Unavailable Care Team Providers Care Rail Car Mechanic Name Role Phone Dave Sanchez MD PCP Reason for Referral * Radiology Services Status Reason Specialty Diagnoses / Referred By Referred To Procedures Contact Contact No Auth Needed Radiology Diagnoses Rudolph Cohn Op Nuclear [place] [address] specified [place] [address] ([facility]) Phone: Phone: P [phone] Fax: CT ABD/PELV W [phone] CHEST W CONTRAST * Radiology Services Status Reason Specialty Diagnoses / Referred By Referred To Procedures Contact Contact No Auth Needed Radiology Diagnoses Rudolph Cohn Op Nuclear Malignant [place] [address] specified [place] [address] ([facility]) Phone: Phone: P [phone] rocedures Fax: CT ABD/PELV W [phone] CHEST W CONTRAST * Radiology Services Status Reason Specialty Diagnoses / Referred By Referred To Procedures Contact Contact New Request Radiology Diagnoses Rudolph Cohn Leiomyclare Claire MD ([facility]) [address] [facility] [address] [address] CHEST W Phone: CONTRAST [phone] * Radiology Services Status Reason Specialty Diagnoses / Referred By Referred To Procedures Contact Contact New Request Radiology Diagnoses Rudolph Cohn Leiomyosarcoma MD [place] ([facility]) [address] [facility] [address] [address] CHEST W Phone: CONTRAST [phone] Reason for Visit * Radiology Services Status Reason Specialty Diagnoses / Referred By Referred To Procedures Contact Contact No Auth Needed Radiology Diagnoses Rudolph Cohn Kucc Op Nuclear Malignant [place] [address] specified [place] [address] ([facility]) Phone: Phone: P [phone] rocedures Fax: CT ABD/PELV W [phone] CHEST W CONTRAST Encounter Details Date Type Department Care Team Description 09/07/2017 [facility] Rudolph Cohn [facility] Radiology [place] [address] [place] [address] [place] [address] [phone] Social History Tobacco Use Types Packs/Day Years [...] the patient have a visual impairment: No 09/07/2017 Does the patient have impaired ambulation: No 09/07/2017 Does the patient have an activity of daily living No 09/07/2017 (ADL) impairment: Does the patient have an instrumental activity of No 09/07/2017 daily living (IADL) impairment: Cognitive Status Response Date of Assessment Does the patient have a cognitive impairment: No 09/07/2017 as of this encounter Medications at Time [...] on fileas of this encounter Results * CT ABD/PELV W CONTRAST (09/07/2017 11:30 [...] scattered subcentimeter pulmonary nodules within both lungs. Primer Charging Tool Setter nodule within the anterior right midlung now [...] Interface, Radiant Results - 09/07/2017 12:[address] Chest, Abdomen and Pelvis with contrast [...] scattered subcentimeter pulmonary nodules within both lungs. Primer Charging Tool Setter nodule within the anterior right midlung now [...] scattered subcentimeter pulmonary nodules within both lungs. Primer Charging Tool Setter nodule within the anterior right midlung now [...] Interface, Radiant Results - 09/07/2017 12:[address] Chest, Abdomen and Pelvis with contrast [...] scattered subcentimeter pulmonary nodules within both lungs. Primer Charging Tool Setter nodule within the anterior right midlung now [...] Marcelo Allen M.D. on 09/07/2017 11:44 AM. 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 sodium chloride PF 0.9% injection 50 mL Given 09/07/2017 50 mL 50 mL, Intravenous, ONCE, 1 dose, Wed 11:15 CUSTOMER GREETER 09/07/17 at 1145, Intra-procedure (IR) in this encounter
--- OUTSIDE RECORDS SUMMARY | 2017-10-13 21:41 | XMS REPORT | Encounter Summary ---
Author Author [facility] Organization [facility] Address Unknown Phone Unavailable Care Team Providers Care Quarryman Name Role Phone Dave Sanchez MD PCP Encounter Details Date Type Department Care Team Description 08/29/2017 Orders Only [facility] Katlyn Simental, [facility] - [facility] Pharmacy [id number] [place] [address] Social History Tobacco Use Types Packs/Day Years Used Date Never Smoker Smokeless Tobacco: Never Used Alcohol Use Drinks/Week oz/Week Comments Yes 10 Cans of 12.0 beer 10 Shots of liquor Sex Assigned at Date Recorded Not on file as of this encounter Functional Status Functional Status Response Date of Assessment Does the patient have a hearing impairment: No 08/22/2017 Does the patient have a visual impairment: No 08/22/2017 Does the patient have impaired ambulation: No 08/22/2017 Does the patient have an activity of daily living No 08/22/2017 (ADL) impairment: Does the patient have an instrumental activity of No 08/22/2017 daily living (IADL) impairment: Cognitive Status Response Date of Assessment Does the patient have a cognitive impairment: No 08/22/2017 as of this encounter Plan of Treatment Not on fileas of this encounter Visit Diagnoses Not on filein this encounter
--- OUTSIDE RECORDS SUMMARY | 2017-10-13 21:41 | XMS REPORT | Encounter Summary ---
Author Author [facility] Organization [facility] Address Unknown Phone Unavailable Care Team Providers Care Photonics Technician Name Role Phone Dave Sanchez MD PCP Reason for Referral * Test Status Reason Specialty Diagnoses / Referred By Referred To Procedures Contact Contact No Auth Needed Cardiology Diagnoses Rudolph Cohn Mac-Ovpk Echo/Pv Leiomyosarcoma MD [place] [address] ([facility]) [address] [place] [address] [address] [facility] [address] 2-D Phone: Phone: ECHOCARDIOGRAM [phone] ONLY Fax: [place] ECHO [phone] TRANSTHORAC R-T 2D W/WO M-MODE REC COMP Reason for Visit * Reason Comments Heme/Onc Care Encounter Details Date Type Department Care Team Description 09/07/2017 Office Visit [facility] Rudolph Cohn Leiomyosarcoma ([facility]) Cancer Center - OP Exam MD [place] (Primary Dx) [address] [place] [address] Social History Tobacco Use Types Packs/Day Years Used Date Never Smoker Smokeless Tobacco: Never Used Alcohol Use Drinks/Week oz/Week Comments Yes 10 Cans of 12.0 beer 10 Shots of liquor Sex Assigned at Date Recorded Not on file as of this encounter Last Filed Vital Signs Vital Sign Reading Time Taken Blood Pressure 119/72 09/07/2017 1:44 PM INSTRUMENTAL MUSIC TEACHER Pulse 85 09/07/2017 1:44 PM INSTRUMENTAL MUSIC TEACHER Temperature 36.8 C (98.2 F) 09/07/2017 1:44 PM INSTRUMENTAL MUSIC TEACHER Respiratory Rate 16 09/07/2017 1:44 PM INSTRUMENTAL MUSIC TEACHER Oxygen Saturation 100% 09/07/2017 1:44 PM INSTRUMENTAL MUSIC TEACHER Inhaled Oxygen - - Concentration Weight 57 kg (125 lb 9.6 oz) 09/07/2017 1:44 PM INSTRUMENTAL MUSIC TEACHER Height 160 cm (5' 3") 09/07/2017 1:44 PM INSTRUMENTAL MUSIC TEACHER Body Mass Index 22.25 09/07/2017 1:44 PM INSTRUMENTAL MUSIC TEACHER in this encounter Functional Status Functional Status [...] impairment: No 09/07/2017 as of this encounter Progress Notes * Rudolph Cohn MD - 09/07/2017 1:45 PM INSTRUMENTAL MUSIC TEACHER Formatting of this note may be different from the original. Name: Mary Yang : 1960 AGE: 56 y.o. DATE OF SERVICE: 09/07/2017 Subjective: Reason for Visit: Heme/Onc Care Mary Yang is a 56 y.o. female. 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 Upon examination [...] debulking of mass. Final path - Non dial lathe operator 14.1x9.1x13.5cm leiomyosarcoma of mesentery, margins neg but extremely close, thin capsule intact Mitotic rate: 8 /10 high-power carrera (HPF), with moderate nuclear atypia; necrosis 5 %; grade 1; (-) LVI; (+) smooth muscle actin and H-caldesmon; (-) CD 117, DOG-1, ER (minimal focal faint staining for NC) Staging CT chest 03/11/17 showed multiple small [...] was probably due to the large Thanksgiving republican they hosted at their house. She had a course of augmentin and steroids last week, but has recovered from that. Loose stools persist. L frontal headaches still there (again, MRI head from late May reported no abnormalities). Here after 4th cycle, and tolerated X-mas holidays well. Had a really nice weekend, in which she was not in charge of doing much at all for the celebration (nice for a change). No fevers/chills. She states that she feels more short of air when she is exerting herself lately, but at the same time, she does admit to more anxiety than normal with the clinic visit today. She is going to [place] next week for a dear friend's 50th. In with and daughter. Review of Systems All other systems reviewed [...] Take 1 Tab by mouth daily. Vitals: 09/07/17 1344 BP: 119/72 Pulse: 85 Resp: 16 Temp: 36.8 C (98.2 F) TempSrc: Oral SpO2: 100% Weight: 57 kg (125 lb 9.6 oz) Height: 160 cm (63") Body mass index is 22.25 kg/(m^2). Pain Score: Zero Pain Addressed: N/A [...] has no wheezes. She has no rales. Abdominal: Soft. Bowel sounds are normal. She exhibits no distension and no mass. There is no tenderness. There is no guarding. No hernia. Incision healed well, no erythema, no discharge, some tenderness along mid- right portion of scar, mild edema of the abdominal wall Musculoskeletal: Normal range of motion. She exhibits [...] w/Diff Lab Results Component Value Date/Time WBC 3.5 (L) 08/29/2017 10:50 AM RBC 3.28 (L) 08/29/2017 10:50 AM HGB 10.7 (L) 08/29/2017 10:50 AM HCT 31.6 (L) 08/29/2017 10:50 AM MCV 96.6 08/29/2017 10:50 AM MCH 32.7 08/29/2017 10:50 AM MCHC 33.8 08/29/2017 10:50 AM RDW 17.2 (H) 08/29/2017 10:50 AM PLTCT 180 08/29/2017 10:50 AM MPV 6.5 (L) 08/29/2017 10:50 AM Lab Results Component Value Date/Time NEUT 78 (H) 08/29/2017 10:50 AM ANC 2.70 08/29/2017 10:50 AM LYMA 20 (L) 08/29/2017 10:50 AM ALC 0.70 (L) 08/29/2017 10:50 AM CHRIS 0 (L) 08/29/2017 10:50 AM AMC 0.00 08/29/2017 10:50 AM EOSA 1 08/29/2017 10:50 AM AEC 0.00 08/29/2017 10:50 AM BASA 1 08/29/2017 10:50 AM ABC 0.00 08/29/2017 10:50 AM Comprehensive Metabolic Profile Lab Results Component Value Date/Time NA 139 08/22/2017 10:10 AM K 3.3 (L) 08/22/2017 10:10 AM CL 101 08/22/2017 10:10 AM CO2 29 08/22/2017 10:10 AM GAP 9 08/22/2017 10:10 AM BUN 14 08/22/2017 10:10 AM CR 0.69 08/22/2017 10:10 AM GLU 127 (H) 08/22/2017 10:10 AM Lab Results Component Value Date/Time CA 9.7 08/22/2017 10:10 AM PO4 3.0 02/16/2017 12:40 PM ALBUMIN 3.7 08/22/2017 10:10 AM TOTPROT 6.3 08/22/2017 10:10 AM ALKPHOS 34 08/22/2017 10:10 AM AST 26 08/22/2017 10:10 AM ALT 27 08/22/2017 10:10 AM TOTBILI 0.3 08/22/2017 10:10 AM GFR >60 08/22/2017 10:10 AM GFRAA >60 08/22/2017 10:[address] after 4 cycles on 09/07/17 shows stable (liver, peritoneal nodule) to slight improvement (lungs) in metastatic disease. Assessment and Plan: Patient Active Problem List Diagnosis Date Noted Leiomyosarcoma (HCC) 02/28/2017 Priority: High Overview Note: Patient seen by ROLLER MECHANIC on 01/17/17 for annual exam. Upon examination [...] debulking of mass. Final path - Non dial lathe operator 14.1x9.1x13.5cm leiomyosarcoma of mesentery, margins neg but extremely close, thin capsule intact Mitotic rate: 8 /10 high-power carrera (HPF), with moderate nuclear atypia; necrosis 5 %; grade 1; (-) LVI; (+) smooth muscle actin and H-caldesmon; (-) CD 117, DOG-1, ER (minimal focal faint staining for NC) Staging CT chest 03/11/17 showed multiple small [...] was probably due to the large Thanksgiving republican they hosted at their house. She had a course of augmentin and steroids last week, but has recovered from that. Loose stools persist. L frontal headaches still there (again, MRI head from late May reported no abnormalities). Here after 4th cycle, and tolerated X-mas holidays well. Had a really nice weekend, in which she was not in charge of doing much at all for the celebration (nice for a change). No fevers/chills. She states that she feels more short of air when she is exerting herself lately, but at the same time, she does admit to more anxiety than normal with the clinic visit today. She is going to [place] next week for a dear friend's 50th. In with and daughter. Restaging CT after 4 cycles on 09/07/17 shows stable (liver, peritoneal nodule) to slight improvement (lungs) in metastatic disease. 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 Continue cycle #5 doxo + olara next week, dose -reduced (60mg/m2 and 12mg/kg, respectively) due to side effect profile. Incorporate dexrazoxane into cycles 5-8. Repeat echo sometime during cycle #5, to make sure heart is still functioning appropriately. I have encouraged her to really re-focus on life and what she wants to accomplish/do/enjoy in the meantime. She has a daughter 10mins from the clinic, where she can stay if need be. Restage after 8th cycle next. Discussed with the patient and all questions fully answered. She will call me if any problems arise. Neuropathy (HCC) 02/28/2017 Priority: Low in this encounter Plan of Treatment Not [...]
--- OUTSIDE RECORDS SUMMARY | 2017-10-13 21:41 | XMS REPORT | Encounter Summary ---
Author Author [facility] Organization [facility] Address Unknown Phone Unavailable Care Team Providers Care Sales Performance Manager Name Role Phone Dave Sanchez MD PCP Encounter Details Date Type Department Care Team Description 08/01/2017 Procedure Pass [facility] Radiology [address] [place] [address] Social History Tobacco Use Types Packs/Day Years [...]
--- OUTSIDE RECORDS SUMMARY | 2017-10-13 21:42 | XMS REPORT | Encounter Summary ---
Author Author [facility] Organization [facility] Address Unknown Phone Unavailable Care Team Providers Care Tablet Coater Name Role Phone Dave Sanchez MD PCP Encounter Details Date Type Department Care Team Description 08/29/2017 [facility] Valentina Pérez APRN Encounter Cancer Center - OP Lab [id number] [place] [address] [address] [place] [address] [phone] Social History Tobacco Use Types Packs/Day Years [...] impairment: No 08/22/2017 as of this encounter Medications at Time [...] this encounter Results * CBC AND DIFF (08/29/2017 10:50 AM) Component Value Ref Range White Blood Cells 3.5 (L) 4.5 - 11.0 K/UL RBC 3.28 (L) 4.0 - 5.0 M/UL Hemoglobin 10.7 (L) 12.0 - 15.0 GM/DL Hematocrit 31.6 (L) 36 - 45 % MCV 96.6 80 - 100 FL MCH 32.7 26 - 34 PG MCHC 33.8 32.0 - 36.0 G/DL RDW 17.2 (H) 11 - 15 % Platelet Count 180 150 - 400 K/UL MPV 6.5 (L) 7 - 11 FL Neutrophils 78 (H) 41 - 77 % Lymphocytes 20 (L) 24 - 44 % Monocytes 0 (L) 4 - 12 % Eosinophils 1 0 - 5 % Basophils 1 0 - 2 % Absolute Neutrophil Count 2.70 1.8 - 7.0 K/UL Absolute Lymph Count 0.70 (L) 1.0 - 4.8 K/UL Absolute Monocyte Count 0.00 0 - 0.80 K/UL Absolute Eosinophil Count 0.00 0 - 0.45 K/UL Absolute Basophil Count 0.00 0 - 0.20 K/UL Specimen Performing Laboratory Blood [facility] [address] [address] in this encounter 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
--- OUTSIDE RECORDS SUMMARY | 2017-10-13 21:42 | XMS REPORT | Encounter Summary ---
Author Author [facility] Organization [facility] Address Unknown Phone Unavailable Care Team Providers Care Vamp Seamer Name Role Phone Dave Sanchez MD PCP Reason for Visit * Reason Comments Heme/Onc Care * Treatment (Routine) Status Reason Specialty Diagnoses / Referred By Referred To Procedures Contact Contact Authorized Hematology Diagnoses Rudolph Cohn, Rudolph Leiomyosarcoma MD [place]otah Claire MD ([facility]) [address] OL[place]ATUM[place] + [place] [phone] [address]OUZIA COON Phone: Phone: P [phone] rocedures Fax: OLARATUMAB + [phone] DOXORUBICIN Encounter Details Date Type Department Care Team Description 08/29/2017 [facility] Valentina Pérez APRN [place] [address] [place] [address] [place] [address] [place] [address] Social History Tobacco Use Types [...] impairment: No 08/22/2017 as of this encounter Discharge Instructions * Patient Instructions - Alta Mancera RN - 08/29/2017 10:52 AM FLORAL DECORATOR Call Immediately to report the following: Uncontrolled nausea and/or vomiting, uncontrolled pain, or unusual bleeding. Temperature of 100.4 F or greater and/or any sign/symptom of infection (redness , warmth, tenderness) Painful mouth or difficulty swallowing Red, cracked, or painful hands and/or feet Diarrhea Swelling of arms or legs Rash Important Phone Numbers: OP Cancer Center Main Number (answered 24 hours a day) [phone] Cancer Center Scheduling (appointments) [phone] OR [phone] Cancer Action (for nutritional supplements) [phone] in this encounter Medications at Time of [...] of this encounter Progress Notes * Alta Mancera RN - 08/29/2017 10:52 AM FLORAL DECORATOR Pt here for treatment. Pt states she feels well. Pt here with mother. CHEMO NOTE Verified chemo consent signed and in chart. Verified initiate chemo order in O2 Blood return positive via: Port (Single) BSA and dose double checked (agree with orders as written) with: yes Labs/applicable tests checked: CBC Chemo regime: Latruvo Cycle 4 day 8 Rate verified and armband double checkwith second RN: yes Patient education offered and stated understanding. Denies questions at this time. Pt tolerated treatment well. Port packed with heparin and deaccessed. Pt discharged in stable, ambulatory condition. in this encounter Miscellaneous Notes * Addendum Note - Luly Hubbard - 08/29/2017 11:59 PM FLORAL DECORATOR Encounter addended by: Luly Hubbard on: 09/06/2017 7:29 AM
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 Administered Medications Medication Order MAR Action Action Date Dose Rate Site dexamethasone (DECADRON) 12 mg in sodium Given - New 08/29/2017 12 mg 300 mL/hr chloride 0.9% (NS) 50 mL IVPB Bag 11:20 FLORAL DECORATOR 12 mg, Intravenous, 50 mL, Administer over 10 Minutes, ONCE, 1 dose, Tue08/29/17 at 1115 diphenhydrAMINE (BENADRYL) injection 25 Given 08/29/2017 25 mg mg 11:20 FLORAL DECORATOR 25 mg, Intravenous, ONCE, 1 dose, Tue08/29/17 at 1115 heparin lock flush PF syringe 500 Units Given 08/29/2017 500 Units 500 Units, Intravenous, ONCE, 1 dose, 13:07 FLORAL DECORATOR Tue08/29/17 at 1100, NOTE: This is a HIGH ALERT Medication. olaratumab (LARTRUVO) 664.8 mg in sodium Given - New 08/29/2017 664.8 mg 250 mL/hr chloride 0.9% (NS) 250 mL IVPB Bag 12:00 FLORAL DECORATOR 664.8 mg (12 mg/kg 55.4 kg Treatment plan recorded weight), Intravenous, 250 mL, Administer over 60 Minutes, ONCE, 1 dose, Tue08/29/17 at 1145, Allow infusion to reach room temp prior to administration. For Grade 1 or 2 infusion-related reactions: Interrupt infusion; after resolution resume with the rate reduced by 50%. Grade 3 or 4: Discontinue permanently. SPECIAL HANDLING PRECAUTIONS NOTE: This is a HIGH ALERT Medication. in this encounter
--- OUTSIDE RECORDS SUMMARY | 2017-10-13 21:42 | XMS REPORT | Encounter Summary ---
Author Author [facility] Organization [facility] Address Unknown Phone Unavailable Care Team Providers Care Vac Press Operator Name Role Phone Dave Sanchez MD PCP Encounter Details Date Type Department Care Team Description 08/22/2017 Orders Only [facility] Rudolph Cohn Leiomyosarcoma (HCC) Cancer Center - OP Exam MD [place] (Primary Dx) [address] [address] [address], [place] [address] Social History Tobacco Use Types Packs/Day [...] as of this encounter Plan of Treatment Name Priority Associated Diagnoses Order Schedule CBC AND DIFF Routine Leiomyosarcoma (HCC) Once a week for 24 Occurrences starting 08/22/2017 until 08/22/2018, 2 completed COMPREHENSIVE METABOLIC PANEL Routine Leiomyosarcoma (HCC) Once a week for 24 Occurrences starting 08/22/2017 until 08/22/2018, 1 completed as of this encounter Results * COMPREHENSIVE METABOLIC [...] Pharmacist for questions. Specimen Performing Laboratory Blood [facility] [address] [place] [address] * CBC AND DIFF (09/19/2017 9:41 AM) [...] - 0.20 K/UL Specimen Performing Laboratory Blood [facility] [place] [address] [address] * CBC AND DIFF (08/16/2017) Component Value Ref Range White Blood Cells RBC Hemoglobin Hematocrit MCV MCH MCHC Platelet Count MPV RDW Neutrophils Absolute Neutrophil Count Lymphocytes Absolute Lymph Count Monocytes Absolute Monocyte Count Eosinophil Absolute Eosinophil Count Basophils Absolute Basophil Count Atypical Lym Metamyelocyte Myelocyte Promyelocyte Blast RBC Morph WBC Morphology Specimen Performing Laboratory Blood [facility] [address] , [facility] [address] [place] [address] in this encounter Visit Diagnoses Diagnosis Leiomyosarcoma (HCC) - Primary Malignant neoplasm of connective and other soft tissue, site unspecified
--- OUTSIDE RECORDS SUMMARY | 2017-10-13 21:42 | XMS REPORT | Encounter Summary ---
Author Author [facility] Organization [facility] Address Unknown Phone Unavailable Care Team Providers Care Vine Pruner Name Role Phone Dave Sanchez MD PCP Encounter Details Date Type Department Care Team Description 08/22/2017 Pharmacy Visit [facility] [address] [facility], [address] Social History Tobacco Use Types Packs/Day Years [...]
--- OUTSIDE RECORDS SUMMARY | 2017-10-13 21:42 | XMS REPORT | Encounter Summary ---
Author Author [facility] Organization [facility] Address Unknown Phone Unavailable Care Team Providers Care Glove Factory Sewer Name Role Phone Dave Sanchez MD PCP Reason for Visit * Reason Comments Heme/Onc Care Encounter Details Date Type Department Care Team Description 08/29/2017 Office Visit [facility] Valentina Pérez APRN Leiomyosarcoma (HCC) Cancer Center - OP Exam [address] (Primary Dx) [address] [place], [place] [address] [place] [address] [phone] [address] [phone] Social History Tobacco Use Types Packs/Day Years Used Date Never Smoker Smokeless Tobacco: Never Used Alcohol Use Drinks/Week oz/Week Comments Yes 10 Cans of 12.0 beer 10 Shots of liquor Sex Assigned at Date Recorded Not on file as of this encounter Last Filed Vital Signs Vital Sign Reading Time Taken Blood Pressure 115/64 08/29/2017 10:57 AM ARMORED VEHICLE OFFICER Pulse 88 08/29/2017 10:57 AM ARMORED VEHICLE OFFICER Temperature 36.8 C (98.3 F) 08/29/2017 10:57 AM ARMORED VEHICLE OFFICER Respiratory Rate 16 08/29/2017 10:57 AM ARMORED VEHICLE OFFICER Oxygen Saturation - - Inhaled Oxygen - - Concentration Weight 56.2 kg (124 lb) 08/29/2017 10:59 AM ARMORED VEHICLE OFFICER Height 160 cm (5' 3") 08/29/2017 10:59 AM ARMORED VEHICLE OFFICER Body Mass Index 21.97 08/29/2017 10:59 AM ARMORED VEHICLE OFFICER in this encounter Functional Status Functional Status [...] impairment: No 08/22/2017 as of this encounter Progress Notes * KeweenawValentinaCARLIEN - 08/29/2017 11:00 AM ARMORED VEHICLE OFFICER Formatting of this note may be different from the original. Name: Mary Yang : 1960 AGE: 56 y.o. DATE OF SERVICE: 08/29/2017 Subjective: Reason for Visit: Heme/Onc Care Mary Yang is a 56 y.o. female with Stage IV leiomyosarcoma here for Day 8 of cycle 4Olaratumab and doxorubicin, Olaratumab only. She has had a little cough due to post nasal drainage, but no fevers or discolored sputum. She is feeling well and excited to spend the holidays with family. No mouth sores. She has continued on maintenance Acyclovir. Appetite has been good. She is here with her mother. 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 Upon examination [...] debulking of mass. Final path - Non biogeographer 14.1x9.1x13.5cm leiomyosarcoma of mesentery, margins neg but extremely close, thin capsule intact Mitotic rate: 8 /10 high-power carrera (HPF), with moderate nuclear atypia; necrosis 5 %; grade 1; (-) LVI; (+) smooth muscle actin and H- caldesmon; (-) CD 117, DOG-1, ER (minimal focal faint staining for ID) Staging CT chest 03/11/17 showed multiple small [...] Take 1 Tab by mouth daily. Vitals: 08/29/17 1057 08/29/17 1059 BP: 115/64 Pulse: 88 Resp: 16 Temp: 36.8 C (98.3 F) TempSrc: Oral Weight: 56.2 kg (124 lb) 56.2 kg (124 lb) Height: 160 cm (63") 160 cm (63") Body mass index is 21.97 kg/(m^2). Pain [...] 10:50 AM ABC 0.00 08/29/2017 10:50 AM Assessment and Plan: Stage IV leiomyosarcoma PLAN: Day 8 olaratumab today. She has scan and Dr. Cohn visit in [address] instructions and this was written down for her. Questions and concerns addressed. She and her motherare in agreement with plan. in this encounter Plan of Treatment Not on fileas of this encounter Visit Diagnoses Diagnosis Leiomyosarcoma (HCC) - Primary Malignant neoplasm of connective and other soft tissue, site unspecified
--- OUTSIDE RECORDS SUMMARY | 2017-10-13 21:42 | XMS REPORT | Encounter Summary ---
Author Author [facility] Organization [facility] Address Unknown Phone Unavailable Care Team Providers Care Board Of Education Secretary Name Role Phone Dave Sanchez MD PCP Reason for Visit * Reason Comments Heme/Onc Care Encounter Details Date Type Department Care Team Description 08/22/2017 Office Visit [facility] Rudolph Cohn Leiomyosarcoma (HCC) Cancer Center - OP Exam [place] [address] [address] [phone] Social History Tobacco Use Types Packs/Day Years Used Date Never Smoker Smokeless Tobacco: Never Used Alcohol Use Drinks/Week oz/Week Comments Yes 10 Cans of 12.0 beer 10 Shots of liquor Sex Assigned at Date Recorded Not on file as of this encounter Last Filed Vital Signs Vital Sign Reading Time Taken Blood Pressure 120/64 08/22/2017 10:15 AM LINOLEUM LAYER Pulse 76 08/22/2017 10:15 AM LINOLEUM LAYER Temperature 36.6 C (97.8 F) 08/22/2017 10:15 AM LINOLEUM LAYER Respiratory Rate 16 08/22/2017 10:15 AM LINOLEUM LAYER Oxygen Saturation - - Inhaled Oxygen - - Concentration Weight 57.2 kg (126 lb 3.2 oz) 08/22/2017 10:15 AM LINOLEUM LAYER Height 160 cm (5' 3") 08/22/2017 10:15 AM LINOLEUM LAYER Body Mass Index 22.36 08/22/2017 10:15 AM LINOLEUM LAYER in this encounter Functional Status Functional [...] Progress Notes * Rudolph Cohn MD - 08/22/2017 10:45 AM LINOLEUM LAYER Formatting of this note may be different from the original. Name: Mary Yang : 1960 AGE: 56 y.o. DATE OF SERVICE: 08/22/2017 Subjective: Reason for Visit: Heme/Onc Care Mary Yang is a 56 y.o. female. Leiomyosarcoma (HCC) Staging form: Soft Tissue Sarcoma, AJCC 7th Edition - Clinical stage from 06/16/2017: Stage IV (M1, G1) - Signed by Rudolph Cohn MD on 06/16/2017 History of Present Illness Patient seen by SLAB OFF MILL TENDER on 01/17/17 for annual exam. Upon examination [...] debulking of mass. Final path - Non sample tailor 14.1x9.1x13.5cm leiomyosarcoma of mesentery, margins neg but extremely close, thin capsule intact Mitotic rate: 8 /10 high-power carrera (HPF), with moderate nuclear atypia; necrosis 5 %; grade 1; (-) LVI; (+) smooth muscle actin and H-caldesmon; (-) CD 117, DOG-1, ER (minimal focal faint staining for ND) Staging CT chest 03/11/17 showed multiple small [...] was probably due to the large Thanksgiving alliance party they hosted at their house. She had a course of augmentin and steroids last week, but has recovered from that. She was back to work by . Loose stools persist. L frontal headaches still there (again, MRI head from late May reported no abnormalities). She and her have always hosted [employer] festivities, but this year, they have relinquished the alliance party, after what transpired after Thanksgiving. They still have hopes of going to [employer] for a friend's 50 - leave Sep 15 for that trip... Review of Systems Neurological: Positive for headaches. Objective: acyclovir (ZOVIRAX) 400 mg tablet Take [...] Take 1 Tab by mouth daily. Vitals: 08/22/17 1015 BP: 120/64 Pulse: 76 Resp: 16 Temp: 36.6 C (97.8 F) TempSrc: Oral Weight: 57.2 kg (126 lb 3.2 oz) Height: 160 cm (63") Body mass index is 22.36 kg/(m^2). Pain Score: Zero Pain Addressed: N/A [...] w/Diff Lab Results Component Value Date/Time WBC 8.9 08/22/2017 10:10 AM RBC 3.35 (L) 08/22/2017 10:10 AM HGB 10.9 (L) 08/22/2017 10:10 AM HCT 32.3 (L) 08/22/2017 10:10 AM MCV 96.4 08/22/2017 10:10 AM MCH 32.6 08/22/2017 10:10 AM MCHC 33.9 08/22/2017 10:10 AM RDW 16.8 (H) 08/22/2017 10:10 AM PLTCT 418 (H) 08/22/2017 10:10 AM MPV 6.0 (L) 08/22/2017 10:10 AM Lab Results Component Value Date/Time NEUT 55 08/22/2017 10:10 AM ANC 4.90 08/22/2017 10:10 AM LYMA 34 08/22/2017 10:10 AM ALC 3.00 08/22/2017 10:10 AM CHRIS 10 08/22/2017 10:10 AM AMC 0.90 (H) 08/22/2017 10:10 AM EOSA 0 08/22/2017 10:10 AM AEC 0.00 08/22/2017 10:10 AM BASA 1 08/22/2017 10:10 AM ABC 0.10 08/22/2017 10:10 AM cmp pending from today Assessment and Plan: Patient Active Problem List Diagnosis Date Noted Leiomyosarcoma (HCC) 02/28/2017 Priority: High Overview Note: Patient seen by SLAB OFF MILL TENDER on 01/17/17 for annual exam. Upon examination [...] debulking of mass. Final path - Non sample tailor 14.1x9.1x13.5cm leiomyosarcoma of mesentery, margins neg but extremely close, thin capsule intact Mitotic rate: 8 /10 high-power carrera (HPF), with moderate nuclear atypia; necrosis 5 %; grade 1; (-) LVI; (+) smooth muscle actin and H-caldesmon; (-) CD 117, DOG-1, ER (minimal focal faint staining for ND) Staging CT chest 03/11/17 showed multiple small [...] was probably due to the large Thanksgiving alliance party they hosted at their house. She had a course of augmentin and steroids last week, but has recovered from that. Loose stools persist. L frontal headaches still there (again, MRI head from late May reported no abnormalities). 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 Continue cycle #4 doxo + olara, dose-reduced (60mg/m2 and 12mg/kg , respectively) due to side effect profile. I have encouraged her to really re- focus on life and what she wants to accomplish/do/enjoy in the meantime. She has a daughter 10mins from the clinic, where she can stay if need be. Restage after 4th cycle, week between Curtis and ZEENAT. Discussed with the patient and all questions fully answered. She will call me if any problems arise. Neuropathy (HCC) 02/28/2017 Priority: Low 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
--- OUTSIDE RECORDS SUMMARY | 2017-10-13 21:42 | XMS REPORT | Encounter Summary ---
Author Author [facility] Organization [facility] Address Unknown Phone Unavailable Care Team Providers Care Stencil Cutter Name Role Phone Dave Sanchez MD PCP Reason for Visit * Reason Comments Heme/Onc Care * Treatment (Routine) Status Reason Specialty Diagnoses / Referred By Referred To Procedures Contact Contact Authorized Hematology Diagnoses Rudolph Cohn Benjamin Leiomyosarcoma MD [place] Claire MD ([facility]) [address] [place] + [place] [address] FOUZIA COON Phone: Phone: P [phone] rocedures Fax: OLARATUMAB + [phone] DOXORUBICIN Encounter Details Date Type Department Care Team Description 08/22/2017 [facility] Rudolph Cohn [facility] - OP MD [place] Treatment [address] [phone] Social History Tobacco Use Types Packs/Day Years [...] encounter Discharge Instructions * Patient Instructions - Nidia Olmstead RN - 08/22/2017 9:52 AM FOOD TESTER Call Immediately to report the following: Uncontrolled nausea and/or vomiting, uncontrolled pain, or unusual bleeding. Temperature of 100.4 F or greater and/or any sign/symptom of infection (redness , warmth, tenderness) Painful mouth or difficulty swallowing Red, cracked, or painful hands and/or feet Diarrhea Swelling of arms or legs Rash Important Phone Numbers: OP Cancer Center Main Number (answered 24 hours a day) [phone] Cancer Center Scheduling (appointments) [phone] OR [phone] Cancer Action (for nutritional supplements) [phone] in this encounter Medications at Time of [...] as of this encounter Progress Notes * Nidia Olmstead, RN - 08/22/2017 10:11 AM FOOD TESTER Port accessed, blood drawn. Pt is here with her . Pt states she feels well and denies complaints. Pt is being seen by Dr. Cohn. CHEMO NOTE Verified chemo consent signed and in chart. Verified initiate chemo order in O2 Blood return positive via: Port (Single) BSA and dose double checked (agree with orders as written) with: yes Labs/applicable tests checked: CBC and CMP Chemo regime: Latruvo and Adriamycin-Cycle 4, Day 1 Rate verified and armband double checkwith second RN: yes Patient education offered and stated understanding. Denies questions at this time. Pt completed treatment without difficulties. Pt discharged in stable condition. in this encounter Miscellaneous Notes * Addendum Note - Luly Hubbard - 08/26/2017 2:20 PM FOOD TESTER Encounter addended by: Luly Hubbard on: 08/26/2017 2:20 PM
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 Administered Medications Medication Order MAR Action Action Date Dose Rate Site dexamethasone (DECADRON) 12 mg in sodium Given - New 08/22/2017 12 mg 300 mL/hr chloride 0.9% (NS) 50 mL IVPB Bag 11:12 FOOD TESTER 12 mg, Intravenous, 50 mL, Administer over 10 Minutes, ONCE, 1 dose, Tue08/22/17 at 1100 diphenhydrAMINE (BENADRYL) injection 25 Given 08/22/2017 25 mg mg 11:10 FOOD TESTER 25 mg, Intravenous, ONCE, 1 dose, Tue08/22/17 at 1100 DOXOrubicin (ADRIAMYCIN) injection 94.2 Given 08/22/2017 94.2 mg mg 13:15 FOOD TESTER 94.2 mg (60 mg/m2 1.57 m2 Treatment plan recorded BSA), Intravenous, ONCE, 1 dose, Tue08/22/17 at 1230, Give IV push over 5- 10 minutes. PROTECT FROM LIGHT NURSING: To be administered by Chemotherapy Competency-validated nurse. NOTE: This is a HIGH ALERT Medication. SPECIAL TUBING REQUIRED fosaprepitant (EMEND) 150 mg in sodium Given - New 08/22/2017 150 mg 450 mL/hr chloride 0.9% (NS) 150 mL IVPB Bag 11:22 FOOD TESTER 150 mg, Intravenous, 150 mL, Administer over 20 Minutes, ONCE, 1 dose, Tue08/22/17 at 1100 heparin lock flush PF syringe 500 Units Given 08/22/2017 500 Units 500 Units, Intra-catheter, ONCE, 1 dose, 13:25 FOOD TESTER Tue08/22/17 at 1000, NOTE: This is a HIGH ALERT Medication. olaratumab (LARTRUVO) 664.8 mg in sodium Given - New 08/22/2017 664.8 mg 250 mL/hr chloride 0.9% (NS) 250 mL IVPB Bag 12:12 FOOD TESTER 664.8 mg (12 mg/kg 55.4 kg Treatment plan recorded weight), Intravenous, 250 mL, Administer over 60 Minutes, ONCE, 1 dose, Tue08/22/17 at 1130, Allow infusion to reach room temp prior to administration. For Grade 1 or 2 infusion-related reactions: Interrupt infusion; after resolution resume with the rate reduced by 50%. Grade 3 or 4: Discontinue permanently. SPECIAL HANDLING PRECAUTIONS NOTE: This is a HIGH ALERT Medication. palonosetron(+) (ALOXI) injection 0.25 Given 08/22/2017 0.25 mg mg 11:09 FOOD TESTER 0.25 mg, Intravenous, ONCE, 1 dose, Tue08/22/17 at 1100 in this encounter
--- OUTSIDE RECORDS SUMMARY | 2017-10-13 21:42 | XMS REPORT | Encounter Summary ---
Author Author [facility] Organization [facility] Address Unknown Phone Unavailable Care Team Providers Care Ropeman Name Role Phone Dave Sanchez MD PCP Encounter Details Date Type Department Care Team Description 08/24/2017 Orders Only [facility] Rudolph Cohn Upper respiratory tract Cancer Center - OP Exam MD [place] infection, unspecified [address] [address]; [place] [address] Leiomyosarcoma (HCC) [phone] Social History Tobacco Use Types Packs/Day [...] on fileas of this encounter Results * CHEST 2 VIEWS (08/17/2017) Specimen Performing Laboratory [facility] [address] [place] [address] in this encounter Visit Diagnoses Diagnosis Upper respiratory tract infection, unspecified type Leiomyosarcoma (HCC) Malignant neoplasm of connective and other soft tissue, site unspecified
--- OUTSIDE RECORDS SUMMARY | 2017-10-13 21:43 | XMS REPORT | Encounter Summary ---
Author Author [facility] Organization [facility] Address Unknown Phone Unavailable Care Team Providers Care Commercial Account Manager Name Role Phone Dave Sanchez MD PCP Encounter Details Date Type Department Care Team Description 08/08/2017 Hospital [facility] Valentina Pérez APRN Encounter Cancer Center - OP Lab [address] [place] [address] [address] [place] [address] [phone] Social History Tobacco Use Types Packs/Day Years Used Date Never Smoker Smokeless Tobacco: Never Used Alcohol Use Drinks/Week oz/Week Comments Yes 10 Cans of 12.0 beer 10 Shots of liquor Sex Assigned at Date Recorded Not on file as of this encounter Functional Status Functional Status Response Date of Assessment Does the patient have a hearing impairment: No 08/08/2017 Does the patient have a visual impairment: No 08/08/2017 Does the patient have impaired ambulation: No 08/08/2017 Does the patient have an activity of daily living No 08/08/2017 (ADL) impairment: Does the patient have an instrumental activity of No 08/08/2017 daily living (IADL) impairment: Cognitive Status Response Date of Assessment Does the patient have a cognitive impairment: No 08/08/2017 as of this encounter Medications at Time [...] each cycle, as needed for acute nausea as of this encounter Plan of Treatment Not on fileas of this encounter Results * CBC AND DIFF (08/08/2017 10:36 AM) Component Value Ref Range White Blood Cells 9.5 4.5 - 11.0 K/UL RBC 3.61 (L) 4.0 - 5.0 M/UL Hemoglobin 11.7 (L) 12.0 - 15.0 GM/DL Hematocrit 34.2 (L) 36 - 45 % MCV 94.6 80 - 100 FL MCH 32.3 26 - 34 PG MCHC 34.1 32.0 - 36.0 G/DL RDW 14.3 11 - 15 % Platelet Count 242 150 - 400 K/UL MPV 6.5 (L) 7 - 11 FL Neutrophils 92 (H) 41 - 77 % Lymphocytes 8 (L) 24 - 44 % Monocytes 0 (L) 4 - 12 % Eosinophils 0 0 - 5 % Basophils 0 0 - 2 % Absolute Neutrophil Count 8.70 (H) 1.8 - 7.0 K/UL Absolute Lymph Count 0.70 (L) 1.0 - 4.8 K/UL Absolute Monocyte Count 0.00 0 - 0.80 K/UL Absolute Eosinophil Count 0.00 0 - 0.45 K/UL Absolute Basophil Count 0.00 0 - 0.20 K/UL Specimen Performing Laboratory Blood [facility] [address] [phone] in this encounter 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
--- OUTSIDE RECORDS SUMMARY | 2017-10-13 21:43 | XMS REPORT | Encounter Summary ---
Author Author [facility] Organization [facility] Address Unknown Phone Unavailable Care Team Providers Care Golf Teacher Name Role Phone Dave Sanchez MD PCP Reason for Visit * Reason Comments Heme/Onc Care * Treatment (Routine) Status Reason Specialty Diagnoses / Referred By Referred To Procedures Contact Contact Authorized Hematology Diagnoses Rudolph Cohn, Rudolph Leiomyosarcoma MD [place] Claire MD ([facility]) [address] OL[place]UM[place] + [place] [phone] FOUZIA COON Phone: Phone: P [phone] rocedures Fax: OLARATUMAB + [phone] DOXORUBICIN Encounter Details Date Type Department Care Team Description 08/08/2017 [facility] Valentina Pérez APR[place] [address] [place] [id number] [place] [address] [place] [address] Social History Tobacco Use Types [...] impairment: No 08/08/2017 as of this encounter Discharge Instructions * Patient Instructions - Alta Mancera RN - 08/08/2017 10:39 AM PROCUREMENT ASSISTANT Call Immediately to report the following: Uncontrolled nausea and/or vomiting, uncontrolled pain, or unusual bleeding. Temperature of 100.4 F or greater and/or any sign/symptom of infection (redness , warmth, tenderness) Painful mouth or difficulty swallowing Red, cracked, or painful hands and/or feet Diarrhea Swelling of arms or legs Rash Important Phone Numbers: OP Cancer Center Main Number (answered 24 hours a day) [phone] Cancer Center Scheduling (appointments) [phone] OR [phone] Cancer Action (for nutritional supplements) [phone] in this encounter Medications at Time of [...] for acute nausea as of this encounter Progress Notes * Alta Mancera, RN - 08/08/2017 10:38 AM PROCUREMENT ASSISTANT Pt here for treatment with mother. Pt states she is feeling well, does have a scratchy throat but states no fever. Port accessed and labs drawn, pt tolerated well. Pt to see provider. CHEMO NOTE Verified chemo consent signed and in chart. Verified initiate chemo order in O2 Blood return positive via: Port (Single) BSA and dose double checked (agree with orders as written) with: yes Labs/applicable tests checked: CBC and CMP Chemo regime: Latruda Cycle 3 Day 8 Rate verified and armband double checkwith second RN: yes Patient education offered and stated understanding. Denies questions at this time. Pt tolerated treatment well. Port packed with heparin and deaccessed. Pt discharged in stable, ambulatory condition. in this encounter Miscellaneous Notes * Addendum Note - Luly Hubbard - 08/12/2017 10:26 AM PROCUREMENT ASSISTANT Encounter addended by: Luly Hubbard on: 08/12/2017 10:26 AM
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 Administered Medications Medication Order MAR Action Action Date Dose Rate Site dexamethasone (DECADRON) 12 mg in sodium Given - New 08/08/2017 12 mg 300 mL/hr chloride 0.9% (NS) 50 mL IVPB Bag 11:15 PROCUREMENT ASSISTANT 12 mg, Intravenous, 50 mL, Administer over 10 Minutes, ONCE, 1 dose, Tue08/08/17 at 1100 diphenhydrAMINE (BENADRYL) injection 25 Given 08/08/2017 25 mg mg 11:13 PROCUREMENT ASSISTANT 25 mg, Intravenous, ONCE, 1 dose, Tue08/08/17 at 1100 heparin lock flush PF syringe 500 Units Given 08/08/2017 500 Units 500 Units, Intravenous, ONCE, 1 dose, 13:00 PROCUREMENT ASSISTANT Tue08/08/17 at 1045, NOTE: This is a HIGH ALERT Medication. olaratumab (LARTRUVO) 664.8 mg in sodium Given - New 08/08/2017 664.8 mg 250 mL/hr chloride 0.9% (NS) 250 mL IVPB Bag 11:55 PROCUREMENT ASSISTANT 664.8 mg (12 mg/kg 55.4 kg Treatment plan recorded weight), Intravenous, 250 mL, Administer over 60 Minutes, ONCE, 1 dose, Tue08/08/17 at 1130, Allow infusion to reach room temp prior to administration. For Grade 1 or 2 infusion-related reactions: Interrupt infusion; after resolution resume with the rate reduced by 50%. Grade 3 or 4: Discontinue permanently. SPECIAL HANDLING PRECAUTIONS NOTE: This is a HIGH ALERT Medication. in this encounter
--- OUTSIDE RECORDS SUMMARY | 2017-10-13 21:43 | XMS REPORT | Encounter Summary ---
Author Author [facility] Organization [facility] Address Unknown Phone Unavailable Care Team Providers Care Patient Registration Supervisor Name Role Phone Dave Sanchez MD PCP Reason for Visit * Reason Comments Heme/Onc Care Encounter Details Date Type Department Care Team Description 08/08/2017 Office Visit [facility] Valentina Pérez APRN Leiomyosarcoma (HCC) Cancer Center - OP Exam [address] (Primary Dx) [address] [place], [place] [address] [place] [address] [phone] [phone] Social History Tobacco Use Types Packs/Day Years Used Date Never Smoker Smokeless Tobacco: Never Used Alcohol Use Drinks/Week oz/Week Comments Yes 10 Cans of 12.0 beer 10 Shots of liquor Sex Assigned at Date Recorded Not on file as of this encounter Last Filed Vital Signs Vital Sign Reading Time Taken Blood Pressure 112/65 08/08/2017 10:41 AM RECYCLING OR RUBBISH COLLECTOR Pulse 107 08/08/2017 10:41 AM RECYCLING OR RUBBISH COLLECTOR Temperature 36.8 C (98.3 F) 08/08/2017 10:41 AM RECYCLING OR RUBBISH COLLECTOR Respiratory Rate 16 08/08/2017 10:41 AM RECYCLING OR RUBBISH COLLECTOR Oxygen Saturation 100% 08/08/2017 10:41 AM RECYCLING OR RUBBISH COLLECTOR Inhaled Oxygen - - Concentration Weight 55.2 kg (121 lb 12.8 oz) 08/08/2017 10:42 AM RECYCLING OR RUBBISH COLLECTOR Height 160 cm (5' 3") 08/08/2017 10:42 AM RECYCLING OR RUBBISH COLLECTOR Body Mass Index 21.58 08/08/2017 10:42 AM RECYCLING OR RUBBISH COLLECTOR in this encounter Functional Status Functional Status [...] impairment: No 08/08/2017 as of this encounter Progress Notes * Valentina Pérez APRN - 08/08/2017 11:00 AM RECYCLING OR RUBBISH COLLECTOR Formatting of this note may be different from the original. Name: Mary Yang : 1960 AGE: 56 y.o. DATE OF SERVICE: 08/08/2017 Subjective: Reason for Visit: Heme/Onc Care Mary Yang is a 56 y.o. female with Stage IV leiomyosarcoma here for Day 8 of cycle 3 Olaratumab and doxorubicin, Olaratumab only. She has had a little sore throat which she attributes to being around more people/family for the holidays. No fevers, cough or runny nose. No mouth sores. She has continued on maintenance Acyclovir. Appetite has been good. She is here with her mother. Leiomyosarcoma (HCC) Staging form: Soft Tissue Sarcoma, AJCC 7th Edition - Clinical stage from 06/16/2017: Stage IV (M1, G1) - Signed by Rudolph Cohn MD on 06/16/2017 History of Present Illness Patient seen by GENERAL ACCOUNTING CLERK on 01/17/17 for annual exam. Upon examination [...] debulking of mass. Final path - Non mini bar attendant 14.1x9.1x13.5cm leiomyosarcoma of mesentery, margins neg but extremely close, thin capsule intact Mitotic rate: 8 /10 high-power carrera (HPF), with moderate nuclear atypia; necrosis 5 %; grade 1; (-) LVI; (+) smooth muscle actin and H- caldesmon; (-) CD 117, DOG-1, ER (minimal focal faint staining for CO) Staging CT chest 03/11/17 showed multiple small [...] 06/13/17 c/w metastatic leiomyosarcoma. Review of Systems HENT: Positive for sore throat. Objective: acyclovir (ZOVIRAX) 400 mg tablet Take [...] Take 1 Tab by mouth daily. Vitals: 08/08/17 1041 08/08/17 1042 BP: 112/65 Pulse: 107 Resp: 16 Temp: 36.8 C (98.3 F) TempSrc: Oral SpO2: 100% Weight: 55.2 kg (121 lb 12.8 oz) 55.2 kg (121 lb 12.8 oz) Height: 160 cm (63") 160 cm (63") Body mass index is 21.58 kg/(m^2). Pain Score: Zero Pain Addressed: N/A [...] Normocephalic. Mouth/Throat: Oropharynx is clear and moist. Mild erythema posterior oropharynx. Eyes: Pupils are equal, round, and reactive [...] w/Diff Lab Results Component Value Date/Time WBC 9.5 08/08/2017 10:36 AM RBC 3.61 (L) 08/08/2017 10:36 AM HGB 11.7 (L) 08/08/2017 10:36 AM HCT 34.2 (L) 08/08/2017 10:36 AM MCV 94.6 08/08/2017 10:36 AM MCH 32.3 08/08/2017 10:36 AM MCHC 34.1 08/08/2017 10:36 AM RDW 14.3 08/08/2017 10:36 AM PLTCT 242 08/08/2017 10:36 AM MPV 6.5 (L) 08/08/2017 10:36 AM Lab Results Component Value Date/Time NEUT 92 (H) 08/08/2017 10:36 AM ANC 8.70 (H) 08/08/2017 10:36 AM LYMA 8 (L) 08/08/2017 10:36 AM ALC 0.70 (L) 08/08/2017 10:36 AM CHRIS 0 (L) 08/08/2017 10:36 AM AMC 0.00 08/08/2017 10:36 AM EOSA 0 08/08/2017 10:36 AM AEC 0.00 08/08/2017 10:36 AM BASA 0 08/08/2017 10:36 AM ABC 0.00 08/08/2017 10:36 AM Assessment and Plan: Stage IV leiomyosarcoma PLAN: Day 8 olaratumab today. I have given her an order to have labs drawn in 1 week. She will see Dr. Cohn back as scheduled for the start of cycle 3. Questions and concerns addressed. She and her mother are in agreement with plan. in this encounter Plan of Treatment Not on fileas of this encounter Visit Diagnoses Diagnosis Leiomyosarcoma (HCC) - Primary Malignant neoplasm of connective and other soft tissue, site unspecified
--- OUTSIDE RECORDS SUMMARY | 2017-10-13 21:43 | XMS REPORT | Encounter Summary ---
Author Author [facility] Organization [facility] Address Unknown Phone Unavailable Care Team Providers Care Unix Systems Administrator Name Role Phone Dave Sanchez MD PCP Encounter Details Date Type Department Care Team Description 08/18/2017 Orders Only [facility] - OP Exam MD [place] [id number] [place] [phone] Social History Tobacco Use Types Packs/Day Years [...] impairment: No 08/08/2017 as of this encounter Plan of Treatment Not on fileas of this encounter Visit Diagnoses Not on filein this encounter
--- OUTSIDE RECORDS SUMMARY | 2017-10-13 21:43 | XMS REPORT | Encounter Summary ---
Author Author [facility] Organization [facility] Address Unknown Phone Unavailable Care Team Providers Care Large Animal Veterinarian Name Role Phone Dave Sanchez MD PCP Encounter Details Date Type Department Care Team Description 08/18/2017 Ancillary Rad Outpatient, Radiologist Diagnosis unknown Orders [address] [place] [address] Social History Tobacco Use Types Packs/Day Years [...] on fileas of this encounter Results * GENERAL RAD CHEST EXTERNAL IMAGING (08/17/2017) Narrative This order has been auto finalized and does not contain a result. in this encounter Visit Diagnoses Diagnosis Diagnosis unknown Other unknown and unspecified cause of morbidity or mortality
--- OUTSIDE RECORDS SUMMARY | 2017-10-13 21:43 | XMS REPORT | Encounter Summary ---
Author Author [facility] Organization [facility] Address Unknown Phone Unavailable Care Team Providers Care Box Car Washer Name Role Phone Dave Sanchez MD PCP Reason for Referral * Radiology Services Status Reason Specialty Diagnoses / Referred By Referred To Procedures Contact Contact No Auth Needed Radiology Diagnoses Rudolph Cohn Kucc [place] Nuclear [place] [address] specified parts [place], [place], [place] [address] ([facility]) Phone: Phone: P [phone] [facility] Fax: CT ABD/PELV W [phone] CHEST W CONTRAST * Radiology Services Status Reason Specialty Diagnoses / Referred By Referred To Procedures Contact Contact New Request Radiology Diagnoses Rudolph Cohn Leiomyosarcoma MD [place] ([facility]) [address] [facility] [address] [address] CHEST W Phone: CONTRAST [phone] Reason for Visit * Reason Comments Heme/Onc Care Encounter Details Date Type Department Care Team Description 08/01/2017 Office Visit [facility] Rudolph Cohn Leiomyosarcoma ([facility]) Cancer Center - OP Exam MD [place] (Primary Dx) [address] [place] [address] [phone] Social History Tobacco Use Types Packs/Day Years Used Date Never Smoker Smokeless Tobacco: Never Used Alcohol Use Drinks/Week oz/Week Comments Yes 10 Cans of 12.0 beer 10 Shots of liquor Sex Assigned at Date Recorded Not on file as of this encounter Last Filed Vital Signs Vital Sign Reading Time Taken Blood Pressure 128/74 08/01/2017 12:07 PM BLAST FURNACE KEEPER HELPER Pulse 79 08/01/2017 12:07 PM BLAST FURNACE KEEPER HELPER Temperature 36.8 C (98.2 F) 08/01/2017 12:07 PM BLAST FURNACE KEEPER HELPER Respiratory Rate 16 08/01/2017 12:07 PM BLAST FURNACE KEEPER HELPER Oxygen Saturation 96% 08/01/2017 12:07 PM BLAST FURNACE KEEPER HELPER Inhaled Oxygen - - Concentration Weight 56.1 kg (123 lb 9.6 oz) 08/01/2017 12:08 PM BLAST FURNACE KEEPER HELPER Height 160 cm (5' 3") 08/01/2017 12:08 PM BLAST FURNACE KEEPER HELPER Body Mass Index 21.89 08/01/2017 12:08 PM BLAST FURNACE KEEPER HELPER in this encounter Functional Status Functional Status [...] impairment: No 08/01/2017 as of this encounter Progress Notes * Rudolph Cohn MD - 08/01/2017 11:00 AM BLAST FURNACE KEEPER HELPER Formatting of this note may be different from the original. Name: Mary Yang : 1960 AGE: 56 y.o. DATE OF SERVICE: 08/01/2017 Subjective: Reason for Visit: Heme/Onc Care Mary Yang is a 56 y.o. female. 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 Upon examination [...] debulking of mass. Final path - Non supervisor warping department 14.1x9.1x13.5cm leiomyosarcoma of mesentery, margins neg but [...] to work the last week of the three week cycle with first cycle, due to aforementioned, so we dose-reduced both drugs with second cycle, and this last 3 weeks has been much better tolerated. She is having a little hemorrhoidal bleeding, and did miss one half day of work to go home and rest, but not nearly as bad mucositis, which she is certainly thankful for. In with mother today. Review of Systems All other systems reviewed [...] Take 1 Tab by mouth daily. Vitals: 08/01/17 1207 08/01/17 1208 BP: 128/74 Pulse: 79 Resp: 16 Temp: 36.8 C (98.2 F) TempSrc: Oral SpO2: 96% Weight: 56.1 kg (123 lb 9.6 oz) 56.1 kg (123 lb 9.6 oz) Height: 160 cm (63") 160 cm (63") Body mass index is 21.89 kg/(m^2). Pain Score: Zero Pain Addressed: N/A Patient Evaluated for a Clinical Trial: No treatment clinical trial available for this patient. Eastern Cooperative Oncology Group performance status is 1, Restricted in physically strenuous activity but ambulatory and able to carry out work of a light or sedentary nature, e.g., light house work, office work. Physical Exam Constitutional: She is oriented to [...] w/Diff Lab Results Component Value Date/Time WBC 5.1 08/01/2017 10:15 AM RBC 3.47 (L) 08/01/2017 10:15 AM HGB 11.2 (L) 08/01/2017 10:15 AM HCT 32.5 (L) 08/01/2017 10:15 AM MCV 93.8 08/01/2017 10:15 AM MCH 32.4 08/01/2017 10:15 AM MCHC 34.5 08/01/2017 10:15 AM RDW 13.6 08/01/2017 10:15 AM PLTCT 290 08/01/2017 10:15 AM MPV 6.1 (L) 08/01/2017 10:15 AM Lab Results Component Value Date/Time NEUT 57 08/01/2017 10:15 AM ANC 2.90 08/01/2017 10:15 AM LYMA 29 08/01/2017 10:15 AM ALC 1.50 08/01/2017 10:15 AM CHRIS 13 (H) 08/01/2017 10:15 AM AMC 0.60 08/01/2017 10:15 AM EOSA 0 08/01/2017 10:15 AM AEC 0.00 08/01/2017 10:15 AM BASA 1 08/01/2017 10:15 AM ABC 0.10 08/01/2017 10:15 AM Comprehensive Metabolic Profile Lab Results Component Value Date/Time NA 138 08/01/2017 10:15 AM K 3.6 08/01/2017 10:15 AM CL 104 08/01/2017 10:15 AM CO2 26 08/01/2017 10:15 AM GAP 8 08/01/2017 10:15 AM BUN 17 08/01/2017 10:15 AM CR 0.53 08/01/2017 10:15 AM GLU 215 (H) 08/01/2017 10:15 AM Lab Results Component Value Date/Time CA 9.0 08/01/2017 10:15 AM PO4 3.0 02/16/2017 12:40 PM ALBUMIN 4.0 08/01/2017 10:15 AM TOTPROT 6.6 08/01/2017 10:15 AM ALKPHOS 32 08/01/2017 10:15 AM AST 25 08/01/2017 10:15 AM ALT 17 08/01/2017 10:15 AM TOTBILI 0.3 08/01/2017 10:15 AM GFR >60 08/01/2017 10:15 AM GFRAA >60 08/01/2017 10:15 AM Assessment and Plan: Patient Active Problem List Diagnosis Date Noted Leiomyosarcoma (HCC) 02/28/2017 Priority: High Overview Note: Patient seen by JUMBO OPERATOR on 01/17/17 for annual exam. Upon examination [...] debulking of mass. Final path - Non supervisor warping department 14.1x9.1x13.5cm leiomyosarcoma of mesentery, margins neg but [...] to work the last week of the three week cycle with first cycle, due to aforementioned, so we dose-reduced both drugs with second cycle, and this last 3 weeks has been much better tolerated. She is having a little hemorrhoidal bleeding, and did miss one half day of work to go home and rest, but not nearly as bad mucositis, which she is certainly thankful for. 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 Continue cycle #3 doxo + olara, dose-reduced (60mg/m2 and 12mg/kg , respectively) due to side effect profile. I have encouraged her to really re- focus on life and what she wants to accomplish/do/enjoy in the meantime. She has a daughter 10mins from the clinic, where she can stay if need be. Restage after 4th cycle, week between X-mas and ZEENAT. Discussed with the patient and [...] scattered subcentimeter pulmonary nodules within both lungs. Meter Record Clerk nodule within the anterior right midlung now [...] Interface, Radiant Results - 09/07/2017 12:21 PM BLAST FURNACE KEEPER HELPER CT Chest, Abdomen and Pelvis with contrast [...] scattered subcentimeter pulmonary nodules within both lungs. Meter Record Clerk nodule within the anterior right midlung now [...] scattered subcentimeter pulmonary nodules within both lungs. Meter Record Clerk nodule within the anterior right midlung now [...] Interface, Radiant Results - 09/07/2017 12:21 PM BLAST FURNACE KEEPER HELPER CT Chest, Abdomen and Pelvis with contrast [...] scattered subcentimeter pulmonary nodules within both lungs. Meter Record Clerk nodule within the anterior right midlung now [...]
--- OUTSIDE RECORDS SUMMARY | 2017-10-13 21:43 | XMS REPORT | Encounter Summary ---
Author Author [facility] Organization [facility] Address Unknown Phone Unavailable Care Team Providers Care Bunch Breaker Machine Operator Name Role Phone Dave Sanchez MD PCP Encounter Details Date Type Department Care Team Description 08/19/2017 Orders Only [facility] - OP Exam MD [place] [address] [place] [phone] Social History Tobacco Use Types Packs/Day Years [...]
--- OUTSIDE RECORDS SUMMARY | 2017-10-13 21:43 | XMS REPORT | Encounter Summary ---
Author Author [facility] Organization [facility] Address Unknown Phone Unavailable Care Team Providers Care Interior Design Director Name Role Phone Dave Sanchez MD PCP Encounter Details Date Type Department Care Team Description 08/22/2017 [facility] Rudolph Cohn [facility] - OP Lab MD [place] [address] [place] [address] [place] [address] [phone] Social History Tobacco Use Types Packs/Day Years [...] this encounter Results * COMPREHENSIVE METABOLIC PANEL (08/22/2017 10:10 AM) Component Value Ref Range Sodium 139 137 - 147 MMOL/L Potassium 3.3 (L) 3.5 - 5.1 MMOL/L Chloride 101 98 - 110 MMOL/L Glucose 127 (H) 70 - 100 MG/DL Blood Urea Nitrogen 14 7 - 25 MG/DL Creatinine 0.69 0.4 - 1.00 MG/DL Calcium 9.7 8.5 - 10.6 MG/DL Total Protein 6.3 6.0 - 8.0 G/DL Total Bilirubin 0.3 0.3 - 1.2 MG/DL Albumin 3.7 3.5 - 5.0 G/DL Alk Phosphatase 34 25 - 110 U/L AST (SGOT) 26 7 - 40 U/L CO2 29 21 - 30 MMOL/L ALT (SGPT) 27 7 - 56 U/L Anion Gap 9 [...] Laboratory Blood [facility] [address] [place] [address] * CBC AND DIFF (08/22/2017 10:10 AM) Component Value Ref Range White Blood Cells 8.9 4.5 - 11.0 K/UL RBC 3.35 (L) 4.0 - 5.0 M/UL Hemoglobin 10.9 (L) 12.0 - 15.0 GM/DL Hematocrit 32.3 (L) 36 - 45 % MCV 96.4 80 - 100 FL MCH 32.6 26 - 34 PG MCHC 33.9 32.0 - 36.0 G/DL RDW 16.8 (H) 11 - 15 % Platelet Count 418 (H) 150 - 400 K/UL MPV 6.0 (L) 7 - 11 FL Neutrophils 55 41 - 77 % Lymphocytes 34 24 - 44 % Monocytes 10 4 - 12 % Eosinophils 0 0 - 5 % Basophils 1 0 - 2 % Absolute Neutrophil Count 4.90 1.8 - 7.0 K/UL Absolute Lymph Count 3.00 1.0 - 4.8 K/UL Absolute Monocyte Count 0.90 (H) 0 - 0.80 K/UL Absolute Eosinophil Count 0.00 0 - 0.45 K/UL Absolute Basophil Count 0.10 0 - 0.20 K/UL ANISO PRESENT Platelet Estimate [facility] Specimen Performing Laboratory Blood [facility] [address] [address] in this encounter 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
--- OUTSIDE RECORDS SUMMARY | 2017-10-13 21:43 | XMS REPORT | Encounter Summary ---
Author Author [facility] Organization [facility] Address Unknown Phone Unavailable Care Team Providers Care Ditching Machine Engineer Name Role Phone Dave Sanchez MD PCP Encounter Details Date Type Department Care Team Description 08/08/2017 Pharmacy Visit [facility] [address] [facility], [address] Social History Tobacco Use Types Packs/Day Years [...]
--- OUTSIDE RECORDS SUMMARY | 2017-10-13 21:43 | XMS REPORT | Encounter Summary ---
Author Author [facility] Organization [facility] Address Unknown Phone Unavailable Care Team Providers Care Broker Name Role Phone Dave Sanchez MD PCP Reason for Visit * Reason Comments URI Encounter Details Date Type Department Care Team Description 08/16/2017 Telephone [facility] Rudolph Cohn [facility] - OP Exam [place] [address] [address] Social History Tobacco Use Types Packs/Day [...] impairment: No 08/08/2017 as of this encounter Miscellaneous Notes * Telephone Encounter - Margaret Peña RN - 08/16/2017 3:47 PM RG Ariane called to report that she has had a upper respiratory infection for one week that she thinks she caught from her grand-daughter. She has not been going to work and has been primarily staying at home trying to rest. On Tuesday she ran a fever of 102.0 and called her PCP who prescribed Augmentin 875mg BID x 7 days. Her biggest complaint is a dry cough. She spent most of our 10 minute conversation talking between coughing. She reports she has remained afebrile since Tuesday after she took a dose of Tylenol. Cough started out productive but she now describes it as being non-productive. She is sleeping in a recliner but with any increase in activity she states she has "coughing attacks". Denies shortness of breath. She explained to me that has been over to her home daily to listen to breath sounds and check in on her. No chest xray has been ordered. Reviewed with and Chest xray-2 view ordered and Prednisone 50mg po x 5 days. Patient to call if symptoms worsen and are not better by or she starts to have a fever or shortness of breath. Our schedulers attempted to get Chest xray done at urgent care locally but they stated that they could not take an order from us but they could from her local PCP otherwise she would need to see a provider at urgent care. I spoke with Jessee at 's office and he is going to send an order for a 2 view chest xray and will place on the order for them to fax us the results. I spoke with patient and she will go into urgent care this evening for chest xray. in this encounter Plan of Treatment Not on fileas of this encounter Results * CHEST 2 VIEWS (08/17/2017) Specimen Performing Laboratory [facility] [address] [address] in this encounter Visit Diagnoses Diagnosis Upper respiratory tract infection, unspecified type - Primary Leiomyosarcoma (HCC) Malignant neoplasm of connective and other soft tissue, site unspecified
--- OUTSIDE RECORDS SUMMARY | 2017-10-13 21:43 | XMS REPORT | Encounter Summary ---
Author Author [facility] Organization [facility] Address Unknown Phone Unavailable Care Team Providers Care Advertising Inserter Name Role Phone Dave Sanchez MD PCP Encounter Details Date Type Department Care Team Description 08/17/2017 Hospital [facility] Radiology [address] [place] [address] Social History Tobacco Use Types [...]
--- OUTSIDE RECORDS SUMMARY | 2017-10-13 21:44 | XMS REPORT | Encounter Summary ---
Author Author [facility] Organization [facility] Address Unknown Phone Unavailable Care Team Providers Care Railroad Brake Operator Name Role Phone Dave Sanchez MD PCP Encounter Details Date Type Department Care Team Description 07/25/2017 Orders Only [facility] Aimee Fink RN Leiomyosarcoma (HCC) Cancer Center - OP Exam [address] [address] Social History Tobacco Use Types Packs/Day Years Used Date Never Smoker Smokeless Tobacco: Never Used Alcohol Use Drinks/Week oz/Week Comments Yes 10 Cans of 12.0 beer 10 Shots of liquor Sex Assigned at Date Recorded Not on file as of this encounter Functional Status Functional Status Response Date of Assessment Does the patient have a hearing impairment: No 06/20/2017 Does the patient have a visual impairment: No 06/20/2017 Does the patient have impaired ambulation: No 06/20/2017 Does the patient have an activity of daily living No 06/20/2017 (ADL) impairment: Does the patient have an instrumental activity of No 06/20/2017 daily living (IADL) impairment: Cognitive Status Response Date of Assessment Does the patient have a cognitive impairment: No 06/20/2017 as of this encounter Plan of Treatment Not on fileas of this encounter Results * CBC AND DIFF (07/25/2017) Component Value Ref Range White Blood Cells RBC Hemoglobin Hematocrit MCV MCH MCHC Platelet Count MPV RDW Neutrophils Absolute Neutrophil Count Lymphocytes Absolute Lymph Count Monocytes Absolute Monocyte Count Eosinophil Absolute Eosinophil Count Basophils Absolute Basophil Count Atypical Lym Metamyelocyte Myelocyte Promyelocyte Blast RBC Morph WBC Morphology Specimen Performing Laboratory Blood [facility] [place] [address] [address] in this encounter 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
--- OUTSIDE RECORDS SUMMARY | 2017-10-13 21:44 | XMS REPORT | Encounter Summary ---
Author Author [facility] Organization [facility] Address Unknown Phone Unavailable Care Team Providers Care Professor Of Communication Arts Name Role Phone Dave Sanchez MD PCP Reason for Visit * Treatment (Routine) Status Reason Specialty Diagnoses / Referred By Referred To Procedures Contact Contact Authorized Hematology Diagnoses Rudolph Cohn Benjamin Leiomyosarcoma MD [place] Claire MD ([facility]) [address] OLARATUMAB + [facility] [address] [place] Phone: Phone: P [phone] rocedures Fax: OLARATUMAB + [phone] DOXORUBICIN Encounter Details Date Type Department Care Team Description 07/18/2017 [facility] Valentina Pérez APR[place] [address] [place] [address] [phone] [place] [address] Social History Tobacco Use Types [...] impairment: No 06/20/2017 as of this encounter Medications at Time [...] Progress Notes * Yvette Leger, RN - 07/18/2017 1:15 PM TRIBUNAL MEMBER Labs drawn from port without difficulties. She was seen by CONSERVATION ENFORCEMENT OFFICER Valentina Pérez today. Ok to treat. CHEMO NOTE Verified chemo consent signed and in chart. Verified initiate chemo order in O2 Blood return positive via: Port (Power Port) BSA and dose double checked (agree with orders as written) with: yes Amina Araujo RN Labs/applicable tests checked: CBC and CMP Chemo regime: Lartruvo C2 D8 Rate verified and armband double checkwith second RN: yes Patient education offered and stated understanding. Denies questions at this time. Tolerated treatment well. Discharged in good condition. in this encounter Miscellaneous Notes * Addendum Note - Luly Hubbard - 07/22/2017 10:30 AM TRIBUNAL MEMBER Encounter addended by: Luly Hubbard on: 07/22/2017 10:30 AM
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 Administered Medications Medication Order MAR Action Action Date Dose Rate Site dexamethasone (DECADRON) 12 mg in sodium Given - New 07/18/2017 12 mg 300 mL/hr chloride 0.9% (NS) 50 mL IVPB Bag 11:40 TRIBUNAL MEMBER 12 mg, Intravenous, 50 mL, Administer over 10 Minutes, ONCE, 1 dose, 07/18/17 at 1115 diphenhydrAMINE (BENADRYL) injection 25 Given 07/18/2017 25 mg mg 11:10 TRIBUNAL MEMBER 25 mg, Intravenous, ONCE, 1 dose, Tue07/18/17 at 1115 heparin lock flush PF syringe 500 Units Given 07/18/2017 500 Units 500 Units, Intravenous, ONCE, 1 dose, 13:13 TRIBUNAL MEMBER Tue07/18/17 at 1245, NOTE: This is a HIGH ALERT Medication. olaratumab (LARTRUVO) 664.8 mg in sodium Given - New 07/18/2017 664.8 mg 250 mL/hr chloride 0.9% (NS) 250 mL IVPB Bag 12:10 TRIBUNAL MEMBER 664.8 mg (12 mg/kg 55.4 kg Treatment plan recorded weight), Intravenous, 250 mL, Administer over 60 Minutes, ONCE, 1 dose, Tue07/18/17 at 1145, Allow infusion to reach room temp prior to administration. For Grade 1 or 2 infusion-related reactions: Interrupt infusion; after resolution resume with the rate reduced by 50%. Grade 3 or 4: Discontinue permanently. SPECIAL HANDLING PRECAUTIONS NOTE: This is a HIGH ALERT Medication. in this encounter
--- OUTSIDE RECORDS SUMMARY | 2017-10-13 21:44 | XMS REPORT | Encounter Summary ---
Author Author [facility] Organization [facility] Address Unknown Phone Unavailable Care Team Providers Care Assistant Professor Of Sociology Name Role Phone Dave Sanchez MD PCP Encounter Details Date Type Department Care Team Description 07/18/2017 Pharmacy Visit [facility] [address] [facility], [address] Social History Tobacco Use Types Packs/Day Years [...]
--- OUTSIDE RECORDS SUMMARY | 2017-10-13 21:44 | XMS REPORT | Encounter Summary ---
Author Author [facility] Organization [facility] Address Unknown Phone Unavailable Care Team Providers Care Auditor Name Role Phone Dave Sanchez MD PCP Encounter Details Date Type Department Care Team Description 08/01/2017 [facility] Rudolph Cohn [facility] - OP Lab MD [place] [address] [place] [id number] [place] [address] [phone] Social History Tobacco Use Types Packs/Day Years [...] impairment: No 08/01/2017 as of this encounter Medications at Time [...] this encounter Results * COMPREHENSIVE METABOLIC PANEL (08/01/2017 10:15 AM) Component Value Ref Range Sodium 138 137 - 147 MMOL/L Potassium 3.6 3.5 - 5.1 MMOL/L Chloride 104 98 - 110 MMOL/L Glucose 215 (H) 70 - 100 MG/DL Blood Urea Nitrogen 17 7 - 25 MG/DL Creatinine 0.53 0.4 - 1.00 MG/DL Calcium 9.0 8.5 - 10.6 MG/DL Total Protein 6.6 6.0 - 8.0 G/DL Total Bilirubin 0.3 0.3 - 1.2 MG/DL Albumin 4.0 3.5 - 5.0 G/DL Alk Phosphatase 32 25 - 110 U/L AST (SGOT) 25 7 - 40 U/L CO2 26 21 - 30 MMOL/L ALT (SGPT) 17 7 - 56 U/L Anion Gap 8 [...] Performing Laboratory Blood [facility] [address] [place] [address] * CBC AND DIFF (08/01/2017 10:15 AM) Component Value Ref Range White Blood Cells 5.1 4.5 - 11.0 K/UL RBC 3.47 (L) 4.0 - 5.0 M/UL Hemoglobin 11.2 (L) 12.0 - 15.0 GM/DL Hematocrit 32.5 (L) 36 - 45 % MCV 93.8 80 - 100 FL MCH 32.4 26 - 34 PG MCHC 34.5 32.0 - 36.0 G/DL RDW 13.6 11 - 15 % Platelet Count 290 150 - 400 K/UL MPV 6.1 (L) 7 - 11 FL Neutrophils 57 41 - 77 % Lymphocytes 29 24 - 44 % Monocytes 13 (H) 4 - 12 % Eosinophils 0 0 - 5 % Basophils 1 0 - 2 % Absolute Neutrophil Count 2.90 1.8 - 7.0 K/UL Absolute Lymph Count 1.50 1.0 - 4.8 K/UL Absolute Monocyte Count 0.60 0 - 0.80 K/UL Absolute Eosinophil Count 0.00 0 - 0.45 K/UL Absolute Basophil Count 0.10 0 - 0.20 K/UL Specimen Performing Laboratory Blood [facility] [address] [address] in this encounter 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
--- OUTSIDE RECORDS SUMMARY | 2017-10-13 21:44 | XMS REPORT | Encounter Summary ---
Author Author [facility] Organization [facility] Address Unknown Phone Unavailable Care Team Providers Care Factory Assembler Name Role Phone Dave Sanchez MD PCP Reason for Visit * Treatment (Routine) Status Reason Specialty Diagnoses / Referred By Referred To Procedures Contact Contact Authorized Hematology Diagnoses Rudolph Cohn Benjamin Leiomyosarcoma MD Dakotah Claire MD ([facility]) [address] OL[place] + [place] [address] FOU[place]IA [place] Phone: Phone: P [phone] rocedures Fax: OLARATUMAB + [phone] DOXORUBICIN Encounter Details Date Type Department Care Team Description 08/01/2017 [facility] Rudolph Cohn [facility] - OP MD [place] Treatment [address] [address] [place] [address], [place] [address] [place] [address] [phone] Social History Tobacco Use Types Packs/Day Years [...] impairment: No 08/01/2017 as of this encounter Discharge Instructions * Patient Instructions - Yvette Leger RN - 08/01/2017 1:50 PM ORTHOPEDIC SPECIALIST Call Immediately to report the following: Uncontrolled nausea and/or vomiting, uncontrolled pain, or unusual bleeding. Temperature of 100.4 F or greater and/or any sign/symptom of infection (redness , warmth, tenderness) Painful mouth or difficulty swallowing Red, cracked, or painful hands and/or feet Diarrhea Swelling of arms or legs Rash Important Phone Numbers: OP Cancer Center Main Number (answered 24 hours a day) [phone] Cancer Center Scheduling (appointments) [phone] [place] [phone] Cancer Action (for nutritional supplements) [phone] in this encounter Medications at Time of [...] of this encounter Progress Notes * Yvette Leger RN - 08/01/2017 2:47 PM ORTHOPEDIC SPECIALIST Labs drawn from port without difficulties. She states that she is doing well, no complaints. Seen by Dr. Cohn today, ok to treat. CHEMO NOTE Verified chemo consent signed and in chart. Verified initiate chemo order in O2 Blood return positive via: Port (Power Port) BSA and dose double checked (agree with orders as written) with: yes Alta Frost RN Labs/applicable tests checked: CBC and CMP Chemo regime: Lartruvo C3 D1 Rate verified and armband double checkwith second RN: yes Patient education offered and stated understanding. Denies questions at this time. Tolerated treatment well. Blood returned throughout and after Adriamycin push. Discharged in good condition. in this encounter Miscellaneous Notes * Addendum Note - Patricia Garza - 08/01/2017 11:59 PM ORTHOPEDIC SPECIALIST Encounter addended by: Patricia Garza on: 08/09/2017 8:49 AM
Actions taken : Charge Capture section accepted 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 Administered Medications Medication Order MAR Action Action Date Dose Rate Site dexamethasone (DECADRON) 12 mg in sodium Given - New 08/01/2017 12 mg 300 mL/hr chloride 0.9% (NS) 50 mL IVPB Bag 12:31 ORTHOPEDIC SPECIALIST 12 mg, Intravenous, 50 mL, Administer over 10 Minutes, ONCE, 1 dose, Tue08/01/17 at 1230 diphenhydrAMINE (BENADRYL) injection 25 Given 08/01/2017 25 mg mg 12:31 ORTHOPEDIC SPECIALIST 25 mg, Intravenous, ONCE, 1 dose, Tue08/01/17 at 1230 DOXOrubicin (ADRIAMYCIN) injection 94.2 Given 08/01/2017 94.2 mg mg 14:30 ORTHOPEDIC SPECIALIST 94.2 mg (60 mg/m2 1.57 m2 Treatment plan recorded BSA), Intravenous, ONCE, 1 dose, Tue08/01/17 at 1400, Give IV push over 5- 10 minutes. PROTECT FROM LIGHT NURSING: To be administered by Chemotherapy Competency-validated nurse. NOTE: This is a HIGH ALERT Medication. SPECIAL TUBING REQUIRED fosaprepitant (EMEND) 150 mg in sodium Given - New 08/01/2017 150 mg 450 mL/hr chloride 0.9% (NS) 150 mL IVPB Bag 12:41 ORTHOPEDIC SPECIALIST 150 mg, Intravenous, 150 mL, Administer over 20 Minutes, ONCE, 1 dose, Tue08/01/17 at 1230 heparin lock flush PF syringe 500 Units Given 08/01/2017 500 Units 500 Units, Intravenous, ONCE, 1 dose, 14:45 ORTHOPEDIC SPECIALIST Tue08/01/17 at 1500, NOTE: This is a HIGH ALERT Medication. olaratumab (LARTRUVO) 664.8 mg in sodium Given - New 08/01/2017 664.8 mg 250 mL/hr chloride 0.9% (NS) 250 mL IVPB Bag 13:28 ORTHOPEDIC SPECIALIST 664.8 mg (12 mg/kg 55.4 kg Treatment plan recorded weight), Intravenous, 250 mL, Administer over 60 Minutes, ONCE, 1 dose, Tue08/01/17 at 1300, Allow infusion to reach room temp prior to administration. For Grade 1 or 2 infusion-related reactions: Interrupt infusion; after resolution resume with the rate reduced by 50%. Grade 3 or 4: Discontinue permanently. SPECIAL HANDLING PRECAUTIONS NOTE: This is a HIGH ALERT Medication. palonosetron(+) (ALOXI) injection 0.25 Given 08/01/2017 0.25 mg mg 12:31 ORTHOPEDIC SPECIALIST 0.25 mg, Intravenous, ONCE, 1 dose, Tue08/01/17 at 1230 in this encounter
--- OUTSIDE RECORDS SUMMARY | 2017-10-13 21:44 | XMS REPORT | Encounter Summary ---
Author Author [facility] Organization [facility] Address Unknown Phone Unavailable Care Team Providers Care Dry Yard Worker Name Role Phone Dave Sanchez MD PCP Reason for Visit * Reason Comments Heme/Onc Care Encounter Details Date Type Department Care Team Description 07/18/2017 Office Visit [facility] Valentina Pérez APRN Leiomyosarcoma (HCC) Cancer Center - OP Exam [id number] (Primary Dx) [address] [place] [address] [place] [address] [phone] [address] [phone] Social History Tobacco Use Types Packs/Day Years Used Date Never Smoker Smokeless Tobacco: Never Used Alcohol Use Drinks/Week oz/Week Comments Yes 10 Cans of 12.0 beer 10 Shots of liquor Sex Assigned at Date Recorded Not on file as of this encounter Last Filed Vital Signs Vital Sign Reading Time Taken Blood Pressure 114/42 07/18/2017 10:35 AM REVIEW NURSE Pulse 91 07/18/2017 10:35 AM REVIEW NURSE Temperature 36.6 C (97.9 F) 07/18/2017 10:35 AM REVIEW NURSE Respiratory Rate 18 07/18/2017 10:35 AM REVIEW NURSE Oxygen Saturation 100% 07/18/2017 10:35 AM REVIEW NURSE Inhaled Oxygen - - Concentration Weight 55.6 kg (122 lb 9.6 oz) 07/18/2017 10:35 AM REVIEW NURSE Height 160 cm (5' 3") 07/18/2017 10:35 AM REVIEW NURSE Body Mass Index 21.72 07/18/2017 10:35 AM REVIEW NURSE in this encounter Functional Status Functional Status [...] impairment: No 06/20/2017 as of this encounter Progress Notes * Valentina Pérez APRN - 07/18/2017 11:00 AM REVIEW NURSE Formatting of this note may be different from the original. Name: Mary Yang : 1960 AGE: 56 y.o. DATE OF SERVICE: 07/18/2017 Subjective: Reason for Visit: Heme/Onc Care Mary Yang is a 56 y.o. 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 Day 1 of cycle 2 went well and she is feeling good. She has noticed the start of both mouth sores and rectal sores again. She is tired, but no nausea or vomiting. Appetite has been fair. No fevers. She is here with her mother. Leiomyosarcoma (HCC) Staging form: Soft Tissue Sarcoma, AJCC 7th Edition - Clinical stage from 06/16/2017: Stage IV (M1, G1) - Signed by Rudolph Cohn MD on 06/16/2017 History of Present Illness Patient seen by APICULTURIST on 01/17/17 for annual exam. Upon examination [...] debulking of mass. Final path - Non insurance producer 14.1x9.1x13.5cm leiomyosarcoma of mesentery, margins neg but [...] other systems reviewed and are negative. Objective: calcium carbonate/vitamin D-3 (OSCAL-500+D) 1250 mg/200 unit [...] Take 1 Tab by mouth daily. Vitals: 07/18/17 1035 Resp: 18 Weight: 55.6 kg (122 lb 9.6 oz) Height: 160 cm (63") Body mass index is 21.72 kg/(m^2). Pain Score: Zero Pain Addressed: N/A [...] Normocephalic. Mouth/Throat: Oropharynx is clear and moist. Few small ulcers noted inner aspect of bottom lip Eyes: Pupils are equal, round, and reactive [...] w/Diff Lab Results Component Value Date/Time WBC 3.9 (L) 07/18/2017 10:32 AM RBC 3.64 (L) 07/18/2017 10:32 AM HGB 11.5 (L) 07/18/2017 10:32 AM HCT 33.8 (L) 07/18/2017 10:32 AM MCV 92.9 07/18/2017 10:32 AM MCH 31.7 07/18/2017 10:32 AM MCHC 34.1 07/18/2017 10:32 AM RDW 12.5 07/18/2017 10:32 AM PLTCT 261 07/18/2017 10:32 AM MPV 6.2 (L) 07/18/2017 10:32 AM Lab Results Component Value Date/Time NEUT 67 07/18/2017 10:32 AM ANC 2.60 07/18/2017 10:32 AM LYMA 32 07/18/2017 10:32 AM ALC 1.20 07/18/2017 10:32 AM CHRIS 0 (L) 07/18/2017 10:32 AM AMC 0.00 07/18/2017 10:32 AM EOSA 0 07/18/2017 10:32 AM AEC 0.00 07/18/2017 10:32 AM BASA 1 07/18/2017 10:32 AM ABC 0.00 07/18/2017 10:32 AM Assessment and Plan: Stage IV leiomyosarcoma Mucositis PLAN: Day 8 olaratumab today. Acyclovir 800 mg BID for 1 week then 400 mg BID throughout the remainder of treatment. I have given her an order to [...] Morph WBC Morphology Specimen Performing Laboratory Blood [facility] [address] [address] in this encounter Visit Diagnoses Diagnosis Leiomyosarcoma (HCC) - Primary Malignant neoplasm of connective and other soft tissue, site unspecified
--- OUTSIDE RECORDS SUMMARY | 2017-10-13 21:44 | XMS REPORT | Encounter Summary ---
Author Author [facility] Organization [facility] Address Unknown Phone Unavailable Care Team Providers Care Roller Machine Operator Name Role Phone Dave Sanchez MD PCP Encounter Details Date Type Department Care Team Description 07/28/2017 Orders Only [facility] - OP Exam MD [place] [id number] [place] [phone] Social History Tobacco Use Types Packs/Day Years [...]
--- OUTSIDE RECORDS SUMMARY | 2017-10-13 21:44 | XMS REPORT | Encounter Summary ---
Author Author [facility] Organization [facility] Address Unknown Phone Unavailable Care Team Providers Care Stain Wiper Name Role Phone Dave Sanchez MD PCP Reason for Visit * Reason Comments Neutropenia Encounter Details Date Type Department Care Team Description 07/25/2017 Telephone [facility] Rudolph Cohn [facility] - OP Exam MD [place] [address] [phone] Social History Tobacco Use Types Packs/Day [...] impairment: No 06/20/2017 as of this encounter Miscellaneous Notes * Telephone Encounter - Aimee Fink RN - 07/25/2017 11:31 AM MANUFACTURING PRODUCTION MANAGER Patient's labs reviewed by Valentina Pérez APRN. Call to patient to discuss neutropenic precautions. Patient reports feeling better than last cycle, but still having trouble with hemorrhoids. Patient using hydrocortisone cream as suggested by parts picker. Discussed using dibucaine to help with discomfort. Patient verbalizes understanding of instructions and knows when to call us. in this encounter Plan of Treatment Not on fileas of this encounter Visit Diagnoses Not on filein this encounter
--- OUTSIDE RECORDS SUMMARY | 2017-10-13 21:44 | XMS REPORT | Encounter Summary ---
Author Author [facility] Organization [facility] Address Unknown Phone Unavailable Care Team Providers Care Assistant Spa Director Name Role Phone Dave Sanchez MD PCP Encounter Details Date Type Department Care Team Description 07/25/2017 Orders Only [facility] - OP Exam [place] [id number] [place] [phone] Social History Tobacco Use Types Packs/Day Years [...]
--- OUTSIDE RECORDS SUMMARY | 2017-10-13 21:45 | XMS REPORT | Encounter Summary ---
Author Author [facility] Organization [facility] Address Unknown Phone Unavailable Care Team Providers Care Furnace Tender Name Role Phone Dave Sanchez MD PCP Encounter Details Date Type Department Care Team Description 07/18/2017 Hospital [facility] Valentina Pérez APRN Encounter Cancer Center - OP Lab [id number] [place] [address] [address] [place] [address] [phone] Social History Tobacco Use Types Packs/Day Years [...] this encounter Results * COMPREHENSIVE METABOLIC PANEL (07/18/2017 10:32 AM) Component Value Ref Range Sodium 135 (L) 137 - 147 MMOL/L Potassium 3.7 3.5 - 5.1 MMOL/L Chloride 102 98 - 110 MMOL/L Glucose 120 (H) 70 - 100 MG/DL Blood Urea Nitrogen 18 7 - 25 MG/DL Creatinine 0.51 0.4 - 1.00 MG/DL Calcium 9.3 8.5 - 10.6 MG/DL Total Protein 6.3 6.0 - 8.0 G/DL Total Bilirubin 0.4 0.3 - 1.2 MG/DL Albumin 3.9 3.5 - 5.0 G/DL Alk Phosphatase 34 25 - 110 U/L AST (SGOT) 15 7 - 40 U/L CO2 27 21 - 30 MMOL/L ALT (SGPT) 14 7 - 56 U/L Anion Gap 6 3 - 12 eGFR Non >60 >60 [...] Performing Laboratory Blood [facility] [address] [place] [address] * CBC AND DIFF (07/18/2017 10:32 AM) Component Value Ref Range White Blood Cells 3.9 (L) 4.5 - 11.0 K/UL RBC 3.64 (L) 4.0 - 5.0 M/UL Hemoglobin 11.5 (L) 12.0 - 15.0 GM/DL Hematocrit 33.8 (L) 36 - 45 % MCV 92.9 80 - 100 FL MCH 31.7 26 - 34 PG MCHC 34.1 32.0 - 36.0 G/DL RDW 12.5 11 - 15 % Platelet Count 261 150 - 400 K/UL MPV 6.2 (L) 7 - 11 FL Neutrophils 67 41 - 77 % Lymphocytes 32 24 - 44 % Monocytes 0 (L) 4 - 12 % Eosinophils 0 0 - 5 % Basophils 1 0 - 2 % Absolute Neutrophil Count 2.60 1.8 - 7.0 K/UL Absolute Lymph Count 1.20 1.0 - 4.8 K/UL Absolute Monocyte Count 0.00 0 - 0.80 K/UL Absolute Eosinophil Count 0.00 0 - 0.45 K/UL Absolute Basophil Count 0.00 0 - 0.20 K/UL Specimen Performing Laboratory Blood [facility] [address] [address] in this encounter 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
--- OUTSIDE RECORDS SUMMARY | 2017-10-13 21:45 | XMS REPORT | Continuity of Care Document ---
Author Author [facility] Organization [facility] Address Unknown Phone Unavailable Allergies Active Description Code Type Severity Reaction Onset Reported/Identified Relationship to Patient Clinical Status Yes No Allergy Information Available [id number] Drug Allergy Unknown N/A 2016 Medications There is no data. Problems Date Dx Coded Attending Type Code Diagnosis Diagnosed By 07/30/2014 Ot 611.89 07/30/2014 Ot 733.90 07/30/2014 Ot V43.82 07/30/2014 Ot V76.12 07/30/2014 Ot V43.82 07/30/2014 Ot V76.12 07/30/2014 Ot 733.90 07/30/2014 Ot V76.12 07/30/2014 LI ELIAS Ot 793.82 07/30/2014 LI ELIAS Ot V43.82 07/30/2014 LI ELIAS Ot V76.12 02/12/2015 Ot V43.82 02/12/2015 Ot V76.12 02/12/2015 Ot 733.90 02/12/2015 Ot V76.12 02/12/2015 LI ELIAS Ot 793.82 02/12/2015 LI ELIAS Ot V43.82 02/12/2015 LI ELIAS Ot V76.12 02/12/2015 CRYSTAL TA DO Ot V43.82 02/12/2015 CELY ENAMORADO CRYSTAL C Ot V76.12 03/04/2015 PHILIP WISE DC Ot 723.1 12/10/2015 CRYSTAL TA DO Ot M81.0 12/10/2015 CELY ENAMORADO CRYSTAL C Ot Z12.31 12/10/2015 ROSINA TA DOA C Ot Z13.820 01/18/2017 Ot 733.90 BONE CARTILAGE DIS NOS 01/18/2017 Ot V76.12 OT SCREEN MAMMO-MALIGN NEOPLASM OF ERIC 01/18/2017 CURT LI Box HEATING AND BLENDING SUPERVISOR Ot 793.82 INCONCLUSIVE MAMMOGRAM 01/18/2017 CURT LI Box HEATING AND BLENDING SUPERVISOR Ot V43.82 BREAST REPLACEMENT STATUS 01/18/2017 CURT LI HALEP Ot V76.12 OTH SCREEN MAMMO-MALIGN NEOPLASM OF ERIC 01/18/2017 TA DO CRYSTAL C Ot V43.82 BREAST REPLACEMENT STATUS 01/18/2017 TA DO CRYSTAL C Ot V76.12 OTH SCREEN MAMMO-MALIGN NEOPLASM OF ERIC 01/18/2017 PHILIP WISE DC Ot 723.1 CERVICALGIA 01/18/2017 TA DO CRYSTAL C Ot M81.0 AGE-RELATED OSTEOPOROSIS W/O CURRENT PAT 01/18/2017 CRYSTAL TA DO C Ot Z12.31 ENCNTR SCREEN MAMMOGRAM FOR MALIGNANT NE 01/18/2017 CRYSTAL TA DO C Ot Z13.820 ENCOUNTER FOR SCREENING FOR OSTEOPOROSIS 01/21/2017 CURT LI Box HEATING AND BLENDING SUPERVISOR Ot R19.09 OTHER INTRA-ABDOMINAL AND PELVIC SWELLIN 02/08/2017 CURT LI Box HEATING AND BLENDING SUPERVISOR Ot R19.09 OTHER INTRA-ABDOMINAL AND PELVIC SWELLIN 02/23/2017 CURT LI Box HEATING AND BLENDING SUPERVISOR Ot R19.09 OTHER INTRA-ABDOMINAL AND PELVIC SWELLIN 02/23/2017 CURT LI Box HEATING AND BLENDING SUPERVISOR Ot Z12.31 ENCNTR SCREEN MAMMOGRAM FOR MALIGNANT NE 06/09/2017 Ot 733.90 BONE CARTILAGE DIS NOS 06/09/2017 Ot V76.12 OTH SCREEN MAMMO-MALIGN NEOPLASM OF ERIC 06/09/2017 CURT LI Box HEATING AND BLENDING SUPERVISOR Ot 793.82 INCONCLUSIVE MAMMOGRAM 06/09/2017 CURT LI Box HEATING AND BLENDING SUPERVISOR Ot V43.82 BREAST REPLACEMENT STATUS 06/09/2017 CURT LI Box HEATING AND BLENDING SUPERVISOR Ot V76.12 OTH SCREEN MAMMO-MALIGN NEOPLASM OF ERIC 06/09/2017 TA DO CRYSTAL C Ot V43.82 BREAST REPLACEMENT STATUS 06/09/2017 TA DO CRYSTAL C Ot V76.12 OTH SCREEN MAMMO-MALIGN NEOPLASM OF ERIC 06/09/2017 BILLIE LOUIS, PHILIP Ot 723.1 CERVICALGIA 06/09/2017 CELY ENAMORADO CRYSTAL C Ot M81.0 AGE-RELATED OSTEOPOROSIS W/O CURRENT PAT 06/09/2017 TACRYSTAL Box DO Ot Z12.31 ENCNTR SCREEN MAMMOGRAM FOR MALIGNANT NE 06/09/2017 CELY ENAMORADOCRYSTAL Ot Z13.820 ENCOUNTER FOR SCREENING FOR OSTEOPOROSIS 06/09/2017 LI ELIAS Ot R19.09 OTHER INTRA-ABDOMINAL AND PELVIC SWELLIN 06/09/2017 LI ELIAS Ot Z12.31 ENCNTR SCREEN MAMMOGRAM FOR MALIGNANT NE 06/09/2017 LI ELIAS Ot R19.09 OTHER INTRA-ABDOMINAL AND PELVIC SWELLIN 06/20/2017 MYRANDA BARBA MD Ot C49.9 MALIGNANT NEOPLASM OF CONNECTIVE AND SOF 06/22/2017 MYRANDA BARBA MD Ot C49.9 MALIGNANT NEOPLASM OF CONNECTIVE AND SOF 08/31/2017 KETTY MONTEMAYOR APRN Ot R05 COUGH 09/21/2017 KETTY MONTEMAYOR APRN Ot R05 COUGH 09/30/2017 CLARE ROSE MD Ot R05 COUGH 10/05/2017 KETTY MONTEMAYOR APRN Ot R05 COUGH Procedures There is no data. Results There is no data. Encounters ACCT No. Visit Date/Time Discharge Status Pt. Type Provider Facility Loc./Unit Complaint [id number] 09/29/2017 15:36:00 09/29/2017 23:59:59 CLS Outpatient CLARE ROSE MD [facility] R05 [id number] 09/21/2017 07:56:00 09/21/2017 23:59:59 CLS Outpatient KETTY MONTEMAYOR APRN [facility] COUGH [id number] 08/17/2017 08:22:00 08/17/2017 23:59:59 CLS Outpatient KETTY MONTEMAYOR APRN [facility] RAD R05 [id number] 06/10/2017 10:41:00 06/10/2017 23:59:59 CLS Outpatient MYRANDA BARBA MD [facility] RAD LELOMYOSARCOMA, WORSENING VISION [id number] 01/20/2017 13:26:00 01/20/2017 23:59:59 CLS Outpatient LI ELIAS [facility] RAD R19.00 PELVIC MASS [id number] 01/18/2017 07:36:00 01/18/2017 23:59:59 CLS Outpatient LI ELIAS [facility] RAD R19.00 PELVIC MASS, SCREENING [id number] 11/27/2015 10:08:00 11/27/2015 23:59:59 CLS Outpatient CRYSTAL TA DO [facility] SCREENING, OSTEOPORSIS [id number] 02/12/2015 08:29:00 02/12/2015 23:59:59 CLS Outpatient PHILIP WISE DC [facility] CERVICALGIA [id number] 07/30/2014 10:36:00 07/30/2014 23:59:59 CLS Outpatient CRYSTAL TA DO [facility] SCREENING [id number] 05/18/2013 11:01:00 05/18/2013 23:59:59 CLS Outpatient LI ELIAS [facility] SCREENING [id number] 01/21/2012 10:44:00 Document Registration [id number] 10/09/2010 14:07:00 Document Registration [id number] 08/22/2009 11:18:00 Document Registration
[2017-10-13] MEDS ORDERED: LACTATED RINGERS 1,000 ML IV ONE (21:56)
--- NOTE | 2017-10-13 22:06 | ED Fever ---
History of Present Illness General Chief Complaint: Fever-Adult/Adol Stated Complaint: FEVER Source: patient, old records, spouse Exam Limitations: no limitations History of Present Illness Date Seen by Provider: Oct 13, 2017 Time Seen by Provider: 21:47 Initial Comments Patient presents to ER by private conveyance with a chief complaint of neutropenic fever for the past 2 days. She saw her primary care physician yesterday who thought it might of been a reaction to the Neulasta she received Tuesday, 4 days ago and gave her a dose of steroids intramuscularly. She was told to continue the Tylenol Motrin and if fevers or uncontrollable or she started exhibiting other signs to come to the ER. They called the private physician and he recommended come to the ER tonight before coming in. Patient's having no cough, chills, shortness of breath, nasal congestion, ear pain, dysuria, nausea, vomiting, chest pain, diarrhea or constipation. She is however feeling that her tongue is swelling. She has no problems drinking or breathing and has no stridor, wheezing or other difficulties just feels hurts when she tries to drink and her tongue is swollen to the top of her mouth. 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 Her oncologist is Dr. Cohn at [facility]. She had a chest x-ray last week that she was told was clear. Her teeth do not hurt and she has no drainage or discharge from her mouth. She says her teeth have hurt in the past but they're not bothering her right now. The patient says she is on a second generation antihistamine as well as prophylactic acyclovir. Tmax 100.8 F. Her last dose of Tylenol was about 5:00 this evening. Patient states she is on the [place] chemotherapy which is presumably doxorubicin. Allergies and Home Medications Allergies Coded Allergies: No Allergy Information Available (Unverified , 01/18/17) Constitutional: No chills, No diaphoresis, fever, No malaise EENTM: No ear discharge, No ear pain, No eye pain, No nose congestion, No nose pain Respiratory: No cough, No hemoptysis, No orthopnea, No phlegm, No short of breath, No stridor, No wheezing Cardiovascular: No chest pain, No edema, No palpitations Gastrointestinal: No abdominal pain, No constipation, No diarrhea, No nausea, No vomiting Genitourinary: No decreased output, No discharge, No dysuria, No hematuria : No (postmenopausal) Musculoskeletal: No back pain, No joint pain Skin: No pruritus, No rash Psychiatric/Neurological: Denies Headache, Denies Numbness, Denies Paresthesia Immunological/Allergic: see HPI Past Etthywd-Oknbsm-Wzlqwo Hx Patient Social History Alcohol Use: Occasionally Uses Recreational Drug Use: No Smoking Status: Never a Smoker Recent Hopitalizations: No Physical Abuse: No Sexual Abuse: No Mistreated: No Fear: No Surgeries History of Surgeries: Yes (ABD TUMOR REMOVED) Surgeries: Ear Surgery, Hysterectomy Respiratory History of Respiratory Disorde: No Cardiovascular History of Cardiac Disorders: No Neurological History of Neurological Disord: No Genitourinary History of Genitourinary Disor: No Gastrointestinal History of Gastrointestinal Di: No Endocrine History of Endocrine Disorders: No HEENT History of HEENT Disorders: No Cancer History of Cancer: Yes (GLEOMYCYTOMA) Psychosocial Suicide Risk Score: 0 Integumentary History of Skin or Integumenta: No Physical Exam Vital Signs Vital Sign - Last 12Hours 10/13/17 21:44 Temp 97.6 Pulse 105 Resp 18 B/P (MAP) 131/71 (91) Pulse Ox 98 O2 Delivery Room Air Capillary Refill : General Appearance: WD/WN, no apparent distress Eyes: Bilateral Eye Normal Inspection, Bilateral Eye PERRL, Bilateral Eye EOMI HEENT: PERRL/EOMI, normal ENT inspection, TMs normal (scant clear mucoid effusion without bulging or retraction.), other (tongue is swollen, non- erythematous without plaque. Tonsils are unable to be appreciated. There is no stridor or difficulty to clear her own secretions. No palpable masses. Some small ulcerations of the gingiva that she says is chronic ever since starting chemotherapy.) Neck: non-tender, full range of motion, supple, normal inspection Respiratory: chest non-tender, lungs clear, normal breath sounds, no respiratory distress, no accessory muscle use Cardiovascular: normal peripheral pulses, regular rate, rhythm, no edema Gastrointestinal: normal bowel sounds, non tender, soft, no organomegaly Extremities: normal range of motion, non-tender, normal inspection, normal capillary refill Neurologic/Psychiatric: alert, normal mood/affect, oriented x 3 Skin: normal color, warm/dry, other (Port-A-Cath on the left chest is unremarkable, non-erythematous, nontender and without any area of fluctuation.) Focused Exam Evaluation Lactate Level Laboratory Tests 10/13/17 22:12: Lactic Acid Level 0.64 Lactic Acid Level Laboratory Tests Test 10/13/17 22:12 Lactic Acid Level 0.64 MMOL/L (0.50-2.00) Progress/Results/Core Measures Suspected Sepsis SIRS Temperature: Pulse: Respiratory Rate: Laboratory Tests 10/13/17 22:12: White Blood Count 0.7*L Blood Pressure / Mean: Laboratory Tests 10/13/17 22:12: Lactic Acid Level 0.64 Laboratory Tests 10/13/17 22:12: Creatinine 0.54L, INR Comment 1.0, Platelet Count 52L, Total Bilirubin 0.8 Results/Orders Lab Results Laboratory Tests Test 10/13/17 21:55 10/13/17 22:12 10/14/17 00:57 Range/Units Group A Streptococcus Screen NEGATIVE NEGATIVE White Blood Count 0.7 *L 4.3-11.0 10^3/uL Red Blood Count 2.49 L 4.35-5.85 10^6/uL Hemoglobin 8.1 L 11.5-16.0 G/DL Hematocrit 24 L 35-52 % Mean Corpuscular Volume 95 80-99 FL Mean Corpuscular Hemoglobin 33 25-34 PG Mean Corpuscular Hemoglobin Concent 34 32-36 G/DL Red Cell Distribution Width 13.2 10.0-14.5 % Platelet Count 52 L 130-400 10^3/uL Mean Platelet Volume 9.8 7.4-10.4 FL Neutrophils (%) (Auto) 42-75 % Lymphocytes (%) (Auto) 12-44 % Monocytes (%) (Auto) 0-12 % Eosinophils (%) (Auto) 0-10 % Basophils (%) (Auto) 0-10 % Neutrophils # (Auto) 1.8-7.8 X 10^3 Lymphocytes # (Auto) 1.0-4.0 X 10^3 Monocytes # (Auto) 0.0-1.0 X 10^3 Eosinophils # (Auto) 0.0-0.3 10^3/uL Basophils # (Auto) 0.0-0.1 10^3/uL Neutrophils % (Manual) 6 % Lymphocytes % (Manual) 90 % Monocytes % (Manual) 4 % Eosinophils % (Manual) 0 % Basophils % (Manual) 0 % Band Neutrophils 0 % Blood Morphology Comment NORMAL Erythrocyte Sedimentation Rate 66 H 0-30 MM/HR Prothrombin Time 13.1 12.2-14.7 SEC INR Comment 1.0 0.8-1.4 Activated Partial Thromboplast Time 29 24-35 SEC Sodium Level 136 135-145 MMOL/L Potassium Level 3.6 3.6-5.0 MMOL/L Chloride Level 105 98-107 MMOL/L Carbon Dioxide Level 22 21-32 MMOL/L Anion Gap 9 5-14 MMOL/L Blood Urea Nitrogen 11 7-18 MG/DL Creatinine 0.54 L 0.60-1.30 MG/DL Estimat Glomerular Filtration Rate > 60 BUN/Creatinine Ratio 20 Glucose Level 103 70-105 MG/DL Lactic Acid Level 0.64 0.50-2.00 MMOL/L Calcium Level 8.7 8.5-10.1 MG/DL Total Bilirubin 0.8 0.1-1.0 MG/DL Aspartate Amino Transf (AST/SGOT) 14 5-34 U/L Alanine Aminotransferase (ALT/SGPT) 17 0-55 U/L Alkaline Phosphatase 41 40-136 U/L C-Reactive Protein High Sensitivity 8.59 H 0.00-0.50 MG/DL Total Protein 5.6 L 6.4-8.2 GM/DL Albumin 3.4 3.2-4.5 GM/DL Urine Color YELLOW Urine Clarity CLEAR Urine pH 7 5-9 Urine Specific [place] 1.010 L 1.016-1.022 Urine Protein NEGATIVE NEGATIVE Urine Glucose (UA) NEGATIVE NEGATIVE Urine Ketones NEGATIVE NEGATIVE Urine Nitrite NEGATIVE NEGATIVE Urine Bilirubin NEGATIVE NEGATIVE Urine Urobilinogen NORMAL NORMAL MG/DL Urine Leukocyte Esterase NEGATIVE NEGATIVE Urine RBC (Auto) NEGATIVE NEGATIVE Urine RBC NONE /HPF Urine WBC NONE /HPF Urine Squamous Epithelial Cells 0-2 /HPF Urine Crystals NONE /LPF Urine Bacteria NEGATIVE /HPF Urine Casts NONE /LPF Urine Mucus NEGATIVE /LPF Urine Culture Indicated NO Micro Results Microbiology 10/13/17 Influenza Types A,B Antigen (DUONG) - Final, Complete My Orders Orders - ADELAIDE VERDUGO Cbc With Automated Diff (10/13/17 21:56) Comprehensive Metabolic Panel (10/13/17 21:56) Hs C Reactive Protein (10/13/17 21:56) Rapid Strep A Screen (10/13/17 21:56) Ua Culture If Indicated (10/13/17 21:56) Influenza A And B Antigens (10/13/17 21:56) Erythrocyte Sedimentation Rate (10/13/17 21:56) Chest Pa/Lat (2 View) (10/13/17 21:56) Saline Lock/Iv-Start (10/13/17 21:56) Lactated Ringers (Lr 1000 Ml Iv Solution (10/13/17 21:56) Lactic Acid Analyzer (10/13/17 21:56) Blood Culture (10/13/17 21:56) Sputum Culture (10/13/17 21:56) Protime With Inr (10/13/17 21:56) Partial Thromboplastin Time (10/13/17 21:56) O2 (10/13/17 21:56) Saline Lock/Iv-Start (10/13/17 21:56) Vital Signs Adult Sepsis Patie Q1H (10/13/17 21:56) Remove Rings In Anticipation O (10/13/17 21:56) Ct Neck (Soft Tissue) W (10/13/17 21:56) Ct Maxillofacial W (10/13/17 21:56) Manual Differential (10/13/17 22:12) Vancomycin Injection (Vancomycin Injecti (10/13/17 22:45) Piperacillin Sodium/Tazobactam (Zosyn Vi (10/13/17 22:45) Iohexol Injection (Omnipaque 350 Mg/Ml 1 (10/13/17 23:30) Ns (Ivpb) (Sodium Chloride 0.9%) (10/13/17 23:30) Acetaminophen Tablet (Tylenol Tablet) (10/14/17 01:45) Acetaminophen Tablet (Tylenol Tablet) (10/14/17 01:37) Medications Given in ED Current Medications Medications Dose Ordered Sig/Imani Route Start Time Stop Time Status Last Admin Dose Admin Acetaminophen 1,000 mg ONCE ONCE PO 10/14/17 01:45 10/14/17 01:46 DC 10/14/17 01:40 1,000 MG Iohexol 100 ml ONCE ONCE IV 10/13/17 23:30 10/13/17 23:31 DC 10/13/17 23:32 100 ML Lactated Ringer's 1,000 ml @ 0 mls/hr Q0M ONCE IV 10/13/17 21:56 10/13/17 22:01 DC 10/13/17 22:26 1,000 MLS/HR Piperacillin Sod/ Tazobactam Sod 4.5 gm/Dextrose 100 ml @ 200 mls/hr ONCE ONCE IV 10/13/17 22:45 10/13/17 23:14 DC 10/13/17 23:40 200 MLS/HR Sodium Chloride 250 ml ONCE ONCE IV 10/13/17 23:30 10/13/17 23:31 DC 10/13/17 23:32 80 ML Vancomycin HCl 1000 mg/Sodium Chloride 250 ml @ 250 mls/hr ONCE ONCE IV 10/13/17 22:45 10/13/17 23:44 DC 10/14/17 00:39 250 MLS/HR Vital Signs/I&O Vital Sign - Last 12Hours 10/13/17 21:44 Temp 97.6 Pulse 105 Resp 18 B/P (MAP) 131/71 (91) Pulse Ox 98 O2 Delivery Room Air Capillary Refill : Progress Note #1: Time: 22:06 Progress Note Neutropenic fever without a definite source. Her swollen tongue may indicate a subungual or gingival abscess. She does have some cavities in her teeth all none of them look acutely inflamed. We are going to get a CT scan of her face and soft tissues of her neck with contrast. I also intended to do a complete sepsis workup and we have some more information we will speak with one of her oncology partners. Her chest x-ray from last week showed a right middle lobe possible infiltrate. She is asymptomatic so we'll repeat a chest x-ray and if that's not conclusive we may consider a CT scan. Finally we'll start her on broad-spectrum antibiotics to include vancomycin and Zosyn. Patient does not appear to be in Sears/sepsis and has low risk for serious complications given her duration of fever less than 7 days and report that her ANC was above 500. We'll check that again today. If ANC above 500 then MASCC score is 24. Progress Note #2: Time: 23:49 Progress Note Absolute neutrophil count is 42 by manual count. Radiologist called and reported that the CT scan of the neck does not show any soft tissue abscess or anything possibly infectious in the lung window she could see. She says she saw the port and it looked fine. Still waiting to get a urinalysis. Her hemoglobin has also dropped from 9.7 her hand carried records from the patient down to 8.1 today. No obvious source of acute blood loss. Influenza and rapid strep are negative. MASCC score is 24 points and the urinalysis is still pending. She is tachycardic 105 on arrival but 96 now. Afebrile at time of arrival. We have paged local oncology but since they haven't called back yet the patient has requested we speak with their oncologist so we will call [facility] and talked to the oncologist generation engineering technologist covering for Dr. Cohn. Current temperature is 99.1F. Progress Note #3: Time: 00:57 Progress Note Spoke with Mayra from triage nurse at [facility] and she has spoke with Dr. Mckeon the oncologist on-call and she would feel more comfortable with the patient being transferred back to for them to workup and managed. I spoke the patient's about this and they would prefer to go by private vehicle. While the patient does have a mild tachycardia she's not been febrile since being here and she has received vancomycin and Zosyn. I think would be okay as long as they have agreed that they will not allow palpation of the Randy Raf no stops between here and there. The has agreed to this plan and he is going home to get some toiletry items while we work on her discharge and will get her underway shortly. Progress Note #4: Time: 01:21 Progress Note Urinalysis is unremarkable. Glossal swelling could also be from a reaction to her recent injection on Tuesday of the Neulasta. However if she truly is having fevers though we haven't documented one I have a hard time explaining that yet. Diagnostic Imaging Diagonstic Imaging: Xray Plain Films/CT/US/NM/MRI: chest (2v) Comments No acute cardiopulmonary findings. Reviewed: Reviewed by Me Diagonstic Imaging: CT Plain Films/CT/US/NM/MRI: head (Neck/Face W/C) Comments CT maxillofacial no acute findings. CT C-spine no acute findings. Reviewed: Reviewed [place] Study, Reviewed by Me, Discussed w/Radiologist Departure Impression Impression: Primary Impression: Neutropenic fever Additional Impressions: Severe neutropenia Glossal swelling SIRS (systemic inflammatory response syndrome) Pancytopenia with fever Anemia, normocytic normochromic Disposition: 02 XFER SHT-TRM HOSP Condition: Stable Transfer Time Spoke to Accepting Phy: 01:00 Transfer Progress Notes 0015: Called [facility] transfer center and spoke with triage coordinator who will call triage nurse and call him back. 0030: Mayra from triage nursing called me back and took report and she will speak to the oncologist and call me. 0100: Marya triage nurse called me back and the patient is accepted by Dr. Mckeon , oncology. They would feel more appropriate for her to return if there are further management as opposed to staying locally. Patient and her have been notified and they agree with this plan and they would prefer to go by private vehicle if possible. We have discussed that the only benefits of going by EMS with via direct route up there so as to avoid any contact, gas station etc. the only other benefit would be the airway management but her airway has been stable for the past 2 days and as long she's been here. Patient has received appropriate antibiotics would cover her until she got there the next 2- 3 hours easily. She has been afebrile entire time she's here. We have discussed appropriate manner in which she should transfer up with private vehicle and the family is in agreement with this plan. 0310: [facility] called for an update and we advised them that the patient left at about 0200 and [address] is a [address] Transfer Time: 02:01 Transfer Facility: [facility] Method of Transfer: Private Vehicle Departure-Patient Inst. Referrals: CLARE ROSE MD (PCP/Family) Primary Care Physician Copy Copies To 1: CLARE ROSE MD, TITUS J Oct 13, 2017 22:06
[2017-10-13 22:21] LABS: HEMATOCRIT 24 % (35-52); HEMOGLOBIN 8.1 G/DL (11.5-16.0); MEAN CORPUSCULAR HEMOGLOBIN 33 PG (25-34); MEAN CORPUSCULAR HGB CONC 34 G/DL (32-36); MEAN CORPUSCULAR VOLUME 95 FL (80-99); MEAN PLATELET VOLUME 9.8 FL (7.4-10.4); PLATELET COUNT 52 10^3/uL (130-400); RED BLOOD COUNT 2.49 10^6/uL (4.35-5.85); RED CELL DISTRIBUTION WIDTH 13.2 % (10.0-14.5)
[2017-10-13 22:25] LABS: WHITE BLOOD COUNT 0.7 10^3/uL (4.3-11.0)
[2017-10-13 22:32] LABS: PROTHROMBIN TIME PATIENT 13.1 SEC (12.2-14.7)
[2017-10-13 22:43] LABS: ALANINE AMINOTRANSFERASE 17 U/L (0-55); ALBUMIN 3.4 GM/DL (3.2-4.5); ALKALINE PHOSPHATASE 41 U/L (40-136); BAND NEUTROPHILS 0 %; BASOPHILS % (MANUAL) 0 %; BILIRUBIN,TOTAL 0.8 MG/DL (0.1-1.0); BUN/CREATININE RATIO 20; CALCIUM 8.7 MG/DL (8.5-10.1); CARBON DIOXIDE 22 MMOL/L (21-32); CHLORIDE 105 MMOL/L (98-107); CREATININE SERUM 0.54 MG/DL (0.60-1.30); EOSINOPHILS % (MANUAL) 0 %; ERYTHROCYTE SEDIMENTATION RATE 66 MM/HR (0-30); GFR ESTIMATED > 60; GLUCOSE 103 MG/DL (70-105); LYMPHOCYTES % (MANUAL) 90 %; MONOCYTES % (MANUAL) 4 %; NEUTROPHILS % (MANUAL) 6 %; POTASSIUM 3.6 MMOL/L (3.6-5.0); RBC MORPH NORMAL; SODIUM 136 MMOL/L (135-145); TOTAL PROTEIN 5.6 GM/DL (6.4-8.2)
[2017-10-13] MEDS ORDERED: PIPERACILLIN SODIUM/TAZOBACTAM 4.5 GM in D5W 100 ML IVPB 100 ML IV ONE (22:45)
[2017-10-13] MEDS ORDERED: VANCOMYCIN INJECTION 1,000 MG in NS (IVPB) 250 ML IV ONE (22:45)
[2017-10-13] MEDS ORDERED: NS 250 ML (IVPB) BAG IV ONE (23:30)
[2017-10-13] MEDS ORDERED: IOHEXOL 350 MG/ML 100 ML (OMNIPAQUE 350) VIAL IV ONE (23:30)
[2017-10-14 01:04] LABS: BILIRUBIN,URINE NEGATIVE (NEGATIVE); CLARITY,URINE CLEAR; COLOR,URINE YELLOW; GLUCOSE, URINE (UA) NEGATIVE (NEGATIVE); KETONES,URINE NEGATIVE (NEGATIVE); LEUKOCYTE ESTERASE ,URINE NEGATIVE (NEGATIVE); NITRITE,URINE NEGATIVE (NEGATIVE); PH,URINE 7 (5-9); PROTEIN,URINE NEGATIVE (NEGATIVE); UROBILINOGEN,URINE NORMAL (NORMAL)
[2017-10-14 01:13] LABS: BACTERIA,URINE NEGATIVE /HPF; SQUAMOUS EPITHELIAL CELL,UR 0-2 /HPF
[2017-10-14] MEDS ORDERED: ACETAMINOPHEN 500 MG TAB (TYLENOL) ONE (01:37)
[2017-10-14] MEDS ORDERED: ACETAMINOPHEN 500 MG TAB (TYLENOL) PO ONE (01:45)
[2017-10-14 02:01] VITALS: BP 113/82
--- NOTE | 2017-10-14 06:22 | Diagnostic Imaging Report ---
PROCEDURE: CT maxillofacial with contrast. TECHNIQUE: After intravenous administration of contrast, axial images were obtained through the face and reformatted into coronal and sagittal planes. INDICATION: Tongue swelling after the last injection on chemotherapy for leiomyosarcoma. FINDINGS: The calvarium is intact. There is no evidence of facial fractures. There is a right maxillary mucous retention cyst and/or polyp. Remaining sinuses and mastoid air cells are clear. The nasopharyngeal and oropharyngeal tissues are symmetrical without mass effect. There is no pathologically enlarged adenopathy or mass in the neck. The visualized vascular structures enhance in a normal fashion. There are no other abnormal areas of contrast enhancement. The epiglottis is normal. Larynx is unremarkable. Trachea is normal. The parotid, submandibular and thyroid glands are unremarkable. IMPRESSION: No acute abnormality in the face or neck Dictated by: Dictated on workstation # [id number]
--- NOTE | 2017-10-14 06:43 | Diagnostic Imaging Report ---
PROCEDURE: CT neck soft tissue with contrast. TECHNIQUE: Multiple contiguous axial images were obtained through the neck after the administration of contrast. INDICATION: Tongue swelling after injection. Patient is on chemotherapy for leiomyosarcoma. FINDINGS: The visualized intracranial structures are unremarkable. The nasopharyngeal, oropharyngeal hypopharyngeal tissues are symmetrical without mass effect. There is no significant tonsillar enlargement. There is no evidence of tonsillar abscess. The clinically reported tongue swelling is not definitively appreciated by CT. Epiglottis and larynx are unremarkable. Trachea is normal. Prevertebral soft tissues are within normal limits. The parotid, submandibular and thyroid glands are unremarkable. Osseous structures are unremarkable. There is no pathologically enlarged adenopathy or mass in the neck. Lung apices are clear. IMPRESSION: Unremarkable CT neck. Dictated by: Dictated on workstation # [id number]
--- NOTE | 2017-10-14 06:49 | Diagnostic Imaging Report ---
INDICATION: Tongue swelling. PA and lateral views of the chest were obtained. Comparison made with prior examination 09/29/2017. FINDINGS: The heart size is normal. Mediastinum is unremarkable. There is no pleural effusion or pneumothorax. There is some unchanged scarring in the lateral aspect of right upper lobe. Mbqylj-d-Bmnu catheter overlies left hemithorax and has tip in superior vena cava. IMPRESSION: No acute cardiopulmonary abnormality. Dictated by: Dictated on workstation # [id number]
== END 2017-10-14 02:01 | disposition short-term general hospital (02) ==
LOC: EDUNIT# 21:33 → ER 21:34
DX: D61.810 Antineoplastic chemotherapy induced pancytopenia (principal); C49.9 Malignant neoplasm of connective and soft tissue, unspecified; C78.01 Secondary malignant neoplasm of right lung; C78.02 Secondary malignant neoplasm of left lung; Z90.710 Acquired absence of both cervix and uterus; T45.1X5A Adverse effect of antineoplastic and immunosuppressive drugs, initial encounter
CPT/HCPCS: 36415; 70487; 70491; 71046; 80053; 81000; 83605; 85007; 85027; 85610; 85652; 85730; 86141; 87040; 87430; 87804; 96361; 96365; 96367

== ENCOUNTER → 2017-11-16 | Outpatient (CLI) | payer BC ==
--- NOTE | 2017-11-16 08:53 | Diagnostic Imaging Report ---
PROCEDURE: US right lower extremity venous. TECHNIQUE: Multiple real-time grayscale images were obtained over the right lower extremity in various projections. Additional duplex Doppler and color Doppler images were also obtained. INDICATION: Right lower extremity swelling. FINDINGS: The right common femoral vein as well as the superficial femoral vein are patent. These demonstrate normal compressibility with normal response to augmentation and Valsalva. There is extensive occlusive thrombus throughout the popliteal vein. This does extend into the upper portion of the peroneal vein. Posterior tibial vein is patent. No fluid collection is seen. IMPRESSION: Occlusive DVT involving the popliteal and peroneal veins. Dictated by: Dictated on workstation # [id number]
== END ==
LOC: RAD 07:22
PROVIDERS: ATTEND Internal Medicine Hematology & Oncology
DX: C49.9 Malignant neoplasm of connective and soft tissue, unspecified (principal); I82.431 Acute embolism and thrombosis of right popliteal vein; I82.4Z1 Acute embolism and thrombosis of unspecified deep veins of right distal lower extremity

== ENCOUNTER → 2018-03-14 | Outpatient (CLI) | payer BC ==
--- NOTE | 2018-03-14 11:07 | Diagnostic Imaging Report ---
INDICATION: Routine screening. COMPARISON: 01/18/2017 and 11/27/2015. TECHNIQUE: 2D and 3D bilateral screening mammography was performed with CAD. FINDINGS: Bilateral breast implants are again noted. The implant contours appear stable. The breast parenchyma is heterogeneously dense, limiting the sensitivity of mammography. Scattered benign-appearing calcifications are noted bilaterally. No mass or malignant appearing microcalcifications are seen. The axillae are unremarkable. IMPRESSION: No mammographic features suspicious for malignancy are identified. ACR BI-RADS Category 2: Benign findings. Result letter will be mailed to the patient. Note: At least 10% of breast cancer is not imaged by mammography. Dictated by: Dictated on workstation # [id number]
== END ==
LOC: RAD 08:05
PROVIDERS: ATTEND Nurse Practitioner
DX: Z12.31 Encounter for screening mammogram for malignant neoplasm of breast (principal)
CPT/HCPCS: 77067

== ENCOUNTER → 2018-11-01 | Outpatient (CLI) | payer BC ==
--- NOTE | 2018-11-01 10:47 | Diagnostic Imaging Report ---
Left foot at 832 hours. INDICATION: Foot pain. 3 views were obtained. There are no prior studies available for comparison. FINDINGS: There is no fracture, dislocation or acute bony abnormality evident. The Lisfranc joint appears to be well-maintained. There is a small calcific density along the posterior medial aspect of the navicular bone. I suspect that this is an accessory ossicle. The soft tissues are unremarkable. IMPRESSION: There is no evidence for an acute bony abnormality. Dictated by: Dictated on workstation # [id number]
== END ==
LOC: RAD 08:24
PROVIDERS: ATTEND Internal Medicine
DX: M79.672 Pain in left foot (principal)
CPT/HCPCS: 73630

== ENCOUNTER → 2018-11-20 | Outpatient (CLI) | payer BC ==
--- NOTE | 2018-11-20 10:43 | Diagnostic Imaging Report ---
EXAMINATION: Magnetic resonance imaging of the left ankle with and without contrast. DATE: November 20, 2018. COMPARISON: None. HISTORY: 58-year-old female, left ankle pain and swelling. No known injury. TECHNIQUE: Magnetic Resonance Imaging sequences were performed of the ankle with and without contrast. FINDINGS: TENDONS AND LIGAMENTS: The Achilles tendon is unremarkable. The posterior flexor tendons (tibialis posterior, flexor digitorum longus, flexor hallucis longus) are intact. The peroneal tendons (peroneus longus and peroneus brevis) are intact. The anterior extensor tendons (tibialis anterior, extensor hallucis longus, and extensor digitorum longus tendons) are intact. The anterior and posterior syndesmotic ligaments are intact. The anterior talofibular, posterior talofibular, calcaneofibular, and deltoid ligaments are intact. The plantar fascia is intact. JOINTS: The ankle mortise is intact. The subtalar and visualized joints of the mid-foot are intact. BONE: There is an os trigonum without edema in the accessory ossicle to suggest abnormal motion. There is an os navicularis with edema in the accessory ossicle adjacent navicular, compatible with abnormal motion. The additional bone marrow signal is unremarkable. There is no acute fracture. There is no evidence of osteonecrosis. The talar dome is intact. BURSAE AND SOFT TISSUES: The bursae and soft tissues surrounding the ankle are unremarkable. IMPRESSION: 1. Edema within the os navicularis and adjacent navicular bone, compatible with abnormal motion. 2. Negative for tendon tear or tenosynovitis. 3. Intact ankle ligaments. 4. Os trigonum without evidence of abnormal motion specifically at this site. Dictated on workstation # [id number]
--- NOTE | 2018-11-20 11:22 | Diagnostic Imaging Report ---
EXAM: MRI left foot without and with intravenous contrast. DATE: November 20, 2018. INDICATION: 58-year-old female, left foot and ankle pain. COMPARISON: Left foot radiographs of November 09, 2018. TECHNIQUE: Multiple MRI sequences were obtained of the left foot without and with intravenous contrast. FINDINGS: Please see the separately dictated MRI ankle report for findings within the included [id number] on that exam. There is mild uncovering of the lateral sesamoid without pronounced hallux valgus deformity. There is mild to moderate osteoarthritis of the first metatarsal/phalangeal joint. There is no sizable joint effusion. The additional joints within the included [id number]-[id number] are unremarkable in appearance. The Lisfranc ligament proper is intact. The visualized portions of the posterior flexor tendons, anterior extensor tendons, and peroneal tendons are intact. The visualized portions of the plantar fascia are intact. There is no acute fracture, stress reaction, evidence of osteonecrosis, or other bone marrow signal abnormality. IMPRESSION: 1. Mild uncovering of the lateral sesamoid without pronounced hallux valgus deformity. 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 2. Please see the separately dictated MRI left ankle report for description of findings within the included [id number] on that exam which includes evidence of abnormal motion at an os navicularis. Dictated on workstation # [id number]
== END ==
LOC: RAD 07:56
PROVIDERS: ATTEND Internal Medicine
DX: M19.072 Primary osteoarthritis, left ankle and foot (principal)
CPT/HCPCS: 73720; 73723

== ENCOUNTER → 2019-04-23 | Outpatient (CLI) | payer BC ==
--- NOTE | 2019-04-23 15:44 | Diagnostic Imaging Report ---
PATIENT HISTORY: PAIN POST FALL, COUGH. History of leiomyosarcoma. TECHNIQUE: Two views of the chest. COMPARISON: Chest radiograph on 10/13/2017. FINDINGS: A left port is visualized with the tip overlying the SVC. Innumerable nodules are seen throughout the lungs, consistent with metastatic disease. No pleural effusion or pneumothorax. The cardiac silhouette is unremarkable. No acute osseous abnormalities. IMPRESSION: Findings consistent with metastatic disease throughout the lungs. This has developed since the prior chest radiograph performed on 10/13/2017. Dictated by: Dictated on workstation # [id number]
--- NOTE | 2019-04-23 16:52 | Diagnostic Imaging Report ---
INDICATION: Fall. TIME OF EXAM: 02:51 p.m. FINDINGS: Multiple views of left ribs were obtained. No definite displaced rib fracture is identified. No effusion or pneumothorax is seen. Patient has a left chest wall port. There are innumerable nodules throughout the left lung, new since chest radiograph from 10/13/2017 and suggestive of metastatic disease. IMPRESSION: 1. No evidence of displaced rib fracture. 2. Development of innumerable pulmonary nodules throughout the left lung, concerning for metastatic disease. Dictated by: Dictated on workstation # [id number]
--- NOTE | 2019-04-23 16:59 | Diagnostic Imaging Report ---
INDICATION: Fall with pain in the sternum. Time of exam 2:50 p.m. FINDINGS: Two views of the sternum were obtained. Multiple pulmonary nodules throughout the left lung are again noted. There is a left chest wall port. No definite osteolytic or blastic lesions within the sternum are identified. No fracture is seen. IMPRESSION: 1. No acute abnormality of the sternum is seen. 2. Pulmonary nodules, suggestive of metastatic disease. Dictated by: Dictated on workstation # [id number]
== END ==
LOC: RAD 14:02
PROVIDERS: ATTEND Internal Medicine
DX: R07.9 Chest pain, unspecified (principal); R05 Cough; R91.8 Other nonspecific abnormal finding of lung field; W19.XXXA Unspecified fall, initial encounter; Z95.828 Presence of other vascular implants and grafts; Z85.831 Personal history of malignant neoplasm of soft tissue
CPT/HCPCS: 71046; 71100; 71120

== ENCOUNTER → 2019-06-25 | Outpatient (CLI) | payer BC ==
[~2019-06-25] MED LIST changes: +DOCU-143 PO; -GADOBUTROL 7.5 MMOL/7.5 ML (GADAVIST) VIAL IV ONE; +IBAN150T8 PO; +ONDA8TAB12 PO; +PRED5TAB PO; +SENN-145 PO; +TRAM50TA2 PO
--- NOTE | 2019-06-25 14:32 | Diagnostic Imaging Report ---
PROCEDURE: CT head without contrast. TECHNIQUE: Multiple contiguous axial images were obtained through the brain without the use of intravenous contrast. Auto Exposure Controls were utilized during the CT exam to meet ALARA standards for radiation dose reduction. INDICATION: Severe headache after lumbar puncture. FINDINGS: The ventricles and sulci are within normal limits. There is no hydrocephalus or cerebral edema. There is no midline shift or mass effect. There is no intracranial mass, hemorrhage, or extra-axial fluid collection. The visualized paranasal sinuses and mastoid air cells are clear. There are no regional areas of decreased attenuation appreciated to suggest an acute CVA. IMPRESSION: No acute intracranial abnormality. Dictated by: Dictated on workstation # [id number]
--- NOTE | 2019-06-26 17:22 | Anesthesia-Procedure Note ---
Procedures/Interventions Procedure Start/Stop/Diagnosis Date of Procedure: Jun 26, 2019 Start Time: 16:21 Referring Physician: Ramu Preprocedural Diagnosis: Probable Spinal Headache Brief History I was consulted to room 423 for possible epidural blood patch. Upon entering the room, the patient was lying in bed with the lights dimmed and her SO and other family were present in the room. I reviewed the patient's history and discussed her headache with her. The patient had a trial last Tuesday for an intrathecal pain pump at [facility] for her metastatic disease, and she returned home immediately with a headache. She said the headache has been persistent since last Tuesday. The patient describes her headache to be unbearable while in an upright position that goes away when she is lying on her side. She describes her pain to be at the base of her skull and her left frontal lobe. Platelet count reviewed and WNL. I discussed with the patient that the headache would eventually go away on its own with no treatment, but it usually takes up to 1-2 weeks; however, we also discussed that the headache could resolve within minutes to hours if the epidural blood patch was performed. All questions were answered including the actual procedure, how it works, and the risks. The patient agreed to the epidural blood patch and consent was signed. Patient was placed in a sitting position. Sterile technique was used to prep the patient's lumbar back with betadine sticks x3. 2 cc Lidocaine 1% was used to localize the patient's skin at L4-L5. A 17g epidural Tuohy needle was inserted at L4-L5 and BEBA technique was utilized to access the patient's epidural space. Drastic BEBA was obtained at 3.5-4 cm. Negative heme or CSF was encountered. The patient's left chest port was then accessed using sterile technique (chloraprep) and 5cc of blood was withdrawn and wasted. Next, 20cc of sterile blood was drawn out of the patient's port, again making sure to maintain sterile technique. The 20 cc of blood was handed, sterile, to this MEDICAL TECHNOLOGIST HEMATOLOGY who injected all 20 cc into her epidural space. The patient tolerated all 20cc without voicing any discomfort. The needle was removed and a bandaid applied over the site. The patient was given instructions to refrain from any heavy lifting our strenuous activity that could disrupt the patch for the next 24-48 hours. All questions were answered and report was given to THAD Young. Stop Time: 16:40 RIP DRAPER CRNA Jun 26, 2019 17:22
== END ==
LOC: RAD 13:57
PROVIDERS: ATTEND Internal Medicine
DX: G97.1 Other reaction to spinal and lumbar puncture (principal)
CPT/HCPCS: 70450

== ENCOUNTER 2019-06-26 11:38 | Observation (INO) | payer BC ==
[~2019-06-26] VITALS: Ht 157.5 cm; Wt 52.7 kg
--- NOTE | 2019-06-26 13:15 | NUR ---
COREY LUCAS admitted to room 423-1, with an admitting diagnosis of dehydration, on 06/26/19 from via private car, accompanied by family.COREY LUCAS introduced to surroundings, call light, bed controls, phone, TV, temperature control, lights, meal times, smoking policy, visitor policy, side rail policy, bathrooms and showers. COREY LUCAS verbalizes understanding that [facility] is not responsible for the loss or damage to any personal effects or valuables that are kept in the patients posession during their hospitalization. The following Patient Care Plans were discussed with the patient: Discharge Planning, fluid replacement,electrolite imballance, and nausia. COREY LUCAS verbalizes understanding of Interdisciplinary Patient Education.
[2019-06-26 13:58] VITALS: BP 138/84
[2019-06-26] MEDS ORDERED: MELATONIN 3 MG TABLET PO PRN (14:00)
[2019-06-26] MEDS ORDERED: PATIENT MAY USE OWN MEDS, ALL PO SCH (14:00)
[2019-06-26] MEDS ORDERED: POLYETHYLENE GLYCOL 17 GM (MIRALAX) PACK PO PRN (14:00)
[2019-06-26] MEDS ORDERED: ONDANSETRON 4 MG (ZOFRAN) ORAL DISSOLVE TAB PO PRN (14:00)
[2019-06-26] MEDS ORDERED: ONDANSETRON 4 MG/2 ML (SDV) Z0FRAN IVP PRN (14:00)
[2019-06-26] MEDS ORDERED: diphenhydrAMINE 25 MG TAB (BENADRYL) PO PRN (14:00)
[2019-06-26] MEDS ORDERED: BISACODYL 10 MG SUPP (DULCOLAX) PR PRN (14:00)
[2019-06-26] MEDS ORDERED: ACETAMINOPHEN 325 MG TABLET PO PRN (14:00)
[2019-06-26] MEDS ORDERED: ENOXAPARIN 40 MG/0.4 ML (LOVENOX) SYR SC SCH (15:00)
--- NOTE | 2019-06-26 15:01 | History & Physical-Hospitalist ---
History of Present Illness HPI/Chief Complaint Winnie Yang is a 58yoM with PMH metastatic leiomyosarcoma who presented with severe headache following a trial of intrathecal pain pump placement. She had this done about 5 days ago and has had a severe headache ever since. She did not have a pain pump placed. She has been taking Tramadol at home which has not been helping with her headache, but her chronic pain has been well controlled. She has back, neck, and rib pain chronically. She reports nausea which has been controlled with Zofran at home. She has a chronic cough which is unchanged. She denies fevers, chills, dyspnea, abdominal pain, diarrhea, constipation, dysuria. Source: patient Exam Limitations: no limitations Date Seen 06/26/19 Time Seen by a Provider: 14:55 Attending Physician Willie Nicole MD PCP Dave Sanchez MD Referring Physician Date of Admission Jun 26, 2019 at 13:14 Home Medications & Allergies Home Medications Reviewed patient Home Medication Reconciliation performed by pharmacy medication reconciliations certified pharmacy technician and/or nursing. Patients Allergies have been reviewed. Allergies Allergies Coded Allergies No Allergy Information Available (Unverified01/18/17) Past Qbhdqgh-Fiiors-Yiqrnv Hx Past Med/Social Hx: Reviewed Nursing Past Med/Soc Hx Patient Social History Recent Foreign Travel: No Contact w/other who traveled: No Recent Hopitalizations: No Recent Infectious Disease Expo: No Past Medical History Surgeries: Ear Surgery, Hysterectomy Review of Systems Constitutional: no symptoms reported EENTM: other (headache) Respiratory: cough Cardiovascular: chest pain (ribs) Genitourinary: no symptoms reported Musculoskeletal: back pain, neck pain Skin: no symptoms reported Psychiatric/Neurological: No Symptoms Reported Physical Exam Physical Exam Vital Signs Vital Signs - First Documented 06/26/19 13:58 Temp 36.7 Pulse 88 Resp 18 B/P (MAP) 138/84 (102) Pulse Ox 100 O2 Delivery Room Air Capillary Refill : Height, Weight, BMI Height: 5'3.00" Weight: 120lbs. oz. 54.688059pd; 21.24 BMI Method:Stated General Appearance: No Apparent Distress, Thin HEENT: PERRL/EOMI, Pharynx Normal Neck: Normal Inspection, Supple Respiratory: Lungs Clear, Normal Breath Sounds Cardiovascular: Regular Rate, Rhythm, No Edema, No Murmur Gastrointestinal: Normal Bowel Sounds, Non Tender, Soft Back: Normal Inspection, No Vertebral Tenderness Extremity: Normal Inspection, Non Tender, No Pedal Edema Neurologic/Psychiatric: Alert, Oriented x3, No Motor/Sensory Deficits, Normal Mood/Affect Skin: Normal Color, Warm/Dry Lymphatic: No Adenopathy Results Results/Procedures Labs Patient resulted labs reviewed. Assessment/Plan Admission Diagnosis Dehydration Admission Status: Observation Reason for Inpatient Admission: Dehydration due to poor intake because of headache following intrathecal pain pump procedure Assessment and Plan Metastatic leiomyosarcoma Pain due to metastatic malignancy Headache following lumbar puncture Nausea -Consult anesthesiology for possible blood patch -Labs ordered -Access port -Continue tramadol, add scheduled Tylenol -May benefit from long-acting pain medication -Bowel regimen ordered -Zofran ordered DVT prophylaxis: Lovenox Code status: DNR Diagnosis/Problems Diagnosis/Problems (1) Leiomyosarcoma Status: Chronic (2) Metastatic cancer Status: Chronic (3) Pain of metastatic malignancy Status: Chronic (4) Headache following lumbar puncture Status: Acute (5) Nausea Status: Chronic WILLIE NICOLE MD Jun 26, 2019 15:01
--- NOTE | 2019-06-26 15:18 | NUR ---
Pt is Orthodox and declines sacraments. Her mother asked for prayer. [place] Sander offered prayer and blessing.
[2019-06-26 15:24] LABS: BASOPHILS % (AUTO) 0 % (0-10); EOSINOPHILS % (AUTO) 0 % (0-10); HEMATOCRIT 39 % (35-52); HEMOGLOBIN 13.3 G/DL (11.5-16.0); LYMPHOCYTES # (AUTO) 1.2 X 10^3 (1.0-4.0); LYMPHOCYTES % (AUTO) 17 % (12-44); MEAN CORPUSCULAR HEMOGLOBIN 33 PG (25-34); MEAN CORPUSCULAR HGB CONC 34 G/DL (32-36); MEAN CORPUSCULAR VOLUME 95 FL (80-99); MONOCYTES # (AUTO) 0.8 X 10^3 (0.0-1.0); MONOCYTES % (AUTO) 12 % (0-12); NEUTROPHILS # (AUTO) 4.8 X 10^3 (1.8-7.8); NEUTROPHILS % (AUTO) 70 % (42-75); PLATELET COUNT 237 10^3/uL (130-400); WHITE BLOOD COUNT 6.9 10^3/uL (4.3-11.0)
[2019-06-26 15:37] LABS: BUN/CREATININE RATIO 20; CALCIUM 9.3 MG/DL (8.5-10.1); CARBON DIOXIDE 30 MMOL/L (21-32); CHLORIDE 95 MMOL/L (98-107); CREATININE SERUM 0.65 MG/DL (0.60-1.30); GFR ESTIMATED > 60; GLUCOSE 118 MG/DL (70-105); POTASSIUM 3.4 MMOL/L (3.6-5.0); SODIUM 134 MMOL/L (135-145)
[2019-06-26] MEDS ORDERED: TRAM50TA2 PO (15:45)
[2019-06-26] MEDS ORDERED: PRED5TAB PO (15:45)
[2019-06-26] MEDS ORDERED: ONDA8TAB12 PO (15:45)
[2019-06-26] MEDS ORDERED: IBAN150T8 PO (15:45)
[2019-06-26] MEDS ORDERED: SENN-145 PO (15:49)
[2019-06-26] MEDS ORDERED: DOCU-143 PO (15:49)
--- NOTE | 2019-06-26 15:49 | NUR ---
SPOKE WITH THE PATIENT ABOUT HER MEDICATIONS. WE WENT OVER THE EXT MED HX AND SHE VERIFIED HOW SHE TAKES THEM. SHE FILLED PREDNISONE RECENTLY BUT SHE STATES SHE TOOK IT FOR A FEW DAYS THEN WAS TOLD TO STOP TAKING IT UNTIL FURTHER NOTICE. SHE TAKES SENNA S OTC NEEDED.
[2019-06-26 16:24] VITALS: BP 135/80
[2019-06-26] MEDS: ACETAMINOPHEN 500 MG TAB (TYLENOL) PO SCH ×2 (17:02→21:07)
[2019-06-26] MEDS: NS IV 1000 ML 1,000 ML IV SCH ×2 (17:10→22:05)
[2019-06-26 17:48] VITALS: BP 135/80
[2019-06-26] MEDS ORDERED: RT-ALBUTEROL/IPRATROPIUM 3 ML (DUONEB) VIAL INH PRN (18:00)
--- NOTE | 2019-06-26 19:09 | NUR ---
LEFT PHONE MESSAGE FOR DR. NICOLE ASKING IF IT IS OK TO HOLD LOVENOX BECAUSE PT JUST HAS BLOOD PATCH PLACED.
[2019-06-26] MEDS: RT-ALBUTEROL/IPRATROPIUM 3 ML (DUONEB) VIAL INH SCH (19:22)
[2019-06-26 20:30] VITALS: BP 120/78
[2019-06-26] MEDS: DOCUSATE SODIUM 100 MG (COLACE) CAP PO SCH (20:50)
[2019-06-26] MEDS: SENNA W/DOCUSATE (SENOKOT S) TABLET PO SCH (20:50)
[2019-06-26] MEDS ORDERED: KCL 20 MEQ TAB (K-DUR) PO ONE ×2 (21:45→23:22)
[2019-06-27] VITALS: BP 135/78
[2019-06-27] MEDS: NS IV 1000 ML 1,000 ML IV SCH (01:19)
[2019-06-27 04:00] VITALS: BP 131/81
[2019-06-27 04:24] LABS: BASOPHILS % (AUTO) 0 % (0-10); EOSINOPHILS # (AUTO) 0.1 10^3/uL (0.0-0.3); EOSINOPHILS % (AUTO) 1 % (0-10); HEMATOCRIT 36 % (35-52); HEMOGLOBIN 12.2 G/DL (11.5-16.0); LYMPHOCYTES # (AUTO) 1.4 X 10^3 (1.0-4.0); LYMPHOCYTES % (AUTO) 30 % (12-44); MEAN CORPUSCULAR HEMOGLOBIN 33 PG (25-34); MEAN CORPUSCULAR HGB CONC 34 G/DL (32-36); MEAN CORPUSCULAR VOLUME 97 FL (80-99); MONOCYTES # (AUTO) 0.6 X 10^3 (0.0-1.0); MONOCYTES % (AUTO) 12 % (0-12); NEUTROPHILS # (AUTO) 2.7 X 10^3 (1.8-7.8); NEUTROPHILS % (AUTO) 56 % (42-75); PLATELET COUNT 242 10^3/uL (130-400); RED CELL DISTRIBUTION WIDTH 12.3 % (10.0-14.5); WHITE BLOOD COUNT 4.7 10^3/uL (4.3-11.0)
[2019-06-27 04:56] LABS: BUN/CREATININE RATIO 15; CALCIUM 8.6 MG/DL (8.5-10.1); CARBON DIOXIDE 26 MMOL/L (21-32); CHLORIDE 102 MMOL/L (98-107); CREATININE SERUM 0.61 MG/DL (0.60-1.30); GFR ESTIMATED > 60; GLUCOSE 98 MG/DL (70-105); MAGNESIUM 1.5 MG/DL (1.6-2.4); POTASSIUM 3.8 MMOL/L (3.6-5.0); SODIUM 139 MMOL/L (135-145)
[2019-06-27] MEDS: MAGNESIUM 1 GM/100 ML IVPB 100 ML IV SCH ×2 (05:49→06:51)
[2019-06-27 08:40] VITALS: BP 134/73
[2019-06-27] MEDS: RT-ALBUTEROL/IPRATROPIUM 3 ML (DUONEB) VIAL INH SCH (08:52)
[2019-06-27] MEDS: DOCUSATE SODIUM 100 MG (COLACE) CAP PO SCH (09:26)
[2019-06-27] MEDS: ACETAMINOPHEN 500 MG TAB (TYLENOL) PO SCH ×2 (09:26→12:46)
[2019-06-27] MEDS: SENNA W/DOCUSATE (SENOKOT S) TABLET PO SCH (09:26)
--- NOTE | 2019-06-27 11:39 | NUR ---
DR NICOLE MAKING ROUNDS -- HE VOICED RM 423 COULD GO HOME IF OK WITH ANESTHESIA -- THIS RN CALLED ANESTHESIA AND PER THEM IT WILL BE OK TO DC PT --
--- NOTE | 2019-06-27 13:27 | Discharge Summary ---
Discharge Summary Hospital Course Problems/Dx: (1) Leiomyosarcoma Status: Chronic (2) Metastatic cancer Status: Chronic (3) Pain of metastatic malignancy Status: Chronic (4) Headache following lumbar puncture Status: Resolved (5) Nausea Status: Chronic Final Diagnosis: Headache following lumbar puncture Hospital Course Date of Admission: Jun 26, 2019 at 13:14 Admission Diagnosis : Headache following lumbar puncture Family Physician/Provider: Clare Rose MD Date of Discharge: 06/27/19 Discharge Diagnosis: Headache following lumbar puncture Hospital Course: Mary Yang is a 58yoF with PMH metastatic leiomyosarcoma who presented with persistent headache following a lumbar puncture. She had a "trial" for an intrathecal pain pump last week. She reports having a headache ever since. Anesthesiology was consulted and performed a blood patch. Her headache improved. She was discharged and instructed to follow up with Dr. Rose in about 1-2 weeks. Labs and Pending Lab Test: Laboratory Tests 06/26/19 15:10: White Blood Count 6.9, Red Blood Count 4.06L, Hemoglobin 13.3, Hematocrit 39, Mean Corpuscular Volume 95, Mean Corpuscular Hemoglobin 33, Mean Corpuscular Hemoglobin Concent 34, Red Cell Distribution Width 12.0, Platelet Count 237, Mean Platelet Volume 9.0, Neutrophils (%) (Auto) 70, Lymphocytes (%) (Auto) 17, Monocytes (%) (Auto) 12, Eosinophils (%) (Auto) 0, Basophils (%) (Auto) 0, Neutr ophils # (Auto) 4.8, Lymphocytes # (Auto) 1.2, Monocytes # (Auto) 0.8, Eosinophils # (Auto) 0.0, Basophils # (Auto) 0.0, Sodium Level 134L, Potassium Level 3.4L, Chloride Level 95L, Carbon Dioxide Level 30, Anion Gap 9, Blood Urea Nitrogen 13, Creatinine 0.65, Estimat Glomerular Filtration Rate > 60, BUN/Creatinine Ratio 20, Glucose Level 118H, Lactic Acid Level 0.85, Calcium Level 9.3 06/27/19 04:19: White Blood Count 4.7, Red Blood Count 3.69L, Hemoglobin 12.2, Hematocrit 36, Mean Corpuscular Volume 97, Mean Corpuscular Hemoglobin 33, Mean Corpuscular Hemoglobin Concent 34, Red Cell Distribution Width 12.3, Platelet Count 242, Mean Platelet Volume 9.0, Neutrophils (%) (Auto) 56, Lymphocytes (%) (Auto) 30, Monocytes (%) (Auto) 12, Eosinophils (%) (Auto) 1, Basophils (%) (Auto) 0, Neutrophils # (Auto) 2.7, Lymphocytes # (Auto) 1.4, Monocytes # (Auto) 0.6, Eosinophils # (Auto) 0.1, Basophils # (Auto) 0.0, Sodium Level 139, Potassium Level 3.8, Chloride Level 102, Carbon Dioxide Level 26, Anion Gap 11, Blood Urea Nitrogen 9, Creatinine 0.61, Estimat Glomerular Filtration Rate > 60, BUN/Creatinine Ratio 15, Glucose Level 98, Calcium Level 8.6, Magnesium Level 1.5L Home Meds Active Reported Senna S Tablet (Sennosides/Docusate Sodium) 1 Each Tablet 2 Tab PO DAILY PRN Ibandronate Sodium 150 Mg Tablet 150 Mg PO MONTHLY Tramadol HCl 50 Mg Tablet 50-100 Mg PO Q8H PRN Ondansetron HCl 8 Mg Tablet 8 Mg PO Q8H PRN Assessment/Pt Instructions Take medications as prescribed. Follow up with Dr. Rose in about a week. Discharge Instructions Discharge Diet: No Restrictions Activity as Tolerated: Yes Discharge Physical Examination General Appearance: Alert, Oriented X3, Cooperative, No Acute Distress HEENT: Atraumatic, EOMI Respiratory: Clear to Auscultation, Normal Air Movement Cardiovascular: Regular Rate, No Murmurs Abdominal: Normal Bowel Sounds, Soft, No Tenderness Extremities: No Edema, No Tenderness/Swelling Skin: No Rashes, No Significant Lesion Neuro: Normal Speech, Normal Tone Psych/Mental Status: Mental Status NL, Mood NL Allergies: Coded Allergies: No Allergy Information Available (Unverified , 01/18/17) Copy Copies To 1: CLARE ROSE MD Discharge Summary Date of Admission Jun 26, 2019 at 13:14 Date of Discharge Discharge Date: Jun 27, 2019 Discharge Time: 13:25 Admission Diagnosis Dehydration Consults/Procedures Consulations Anesthesiology Procedures Blood patch Discharge Diagnosis Metastatic leiomyosarcoma, Pain due to metastatic malignancy, Headache following lumbar puncture (1) Headache following lumbar puncture Status: Resolved (2) Leiomyosarcoma Status: Chronic (3) Metastatic cancer Status: Chronic (4) Pain of metastatic malignancy Status: Chronic (5) Nausea Status: Chronic Clinical Quality Measures DVT/VTE Risk/Contraindication: Risk Factor Score Per Nursin RFS Level Per Nursing on Admit: 4+=Very High WILLIE NICOLE MD Jun 27, 2019 13:25
[2019-06-27 14:34] VITALS: BP 134/73
== END 2019-06-27 14:40 | disposition home or self-care (01) ==
LOC: 4TH 13:14
PROVIDERS: ADMIT Internal Medicine; ATTEND Internal Medicine
DX: C79.51 Secondary malignant neoplasm of bone (principal); C49.9 Malignant neoplasm of connective and soft tissue, unspecified; G89.3 Neoplasm related pain (acute) (chronic); E86.0 Dehydration; R11.10 Vomiting, unspecified; Z90.710 Acquired absence of both cervix and uterus
CPT/HCPCS: 36415; 80048; 83605; 83735; 85025; 94640; 94760; 99211; G0378

== ENCOUNTER 2019-08-05 09:56 | Emergency (ER) | payer BC ==
[~2019-08-05] VITALS: Ht 157.4 cm; Wt 54.5 kg
--- NOTE | 2019-08-05 11:03 | Diagnostic Imaging Report ---
PROCEDURE: CT pelvis without contrast. TECHNIQUE: Multiple contiguous axial images were obtained through the pelvis without the use of intravenous contrast. Sagittal and coronal reformations were performed. Auto Exposure Controls were utilized during the CT exam to meet ALARA standards for radiation dose reduction. INDICATION: Right hip pain fall COMPARISON: CT pelvis 01/28/2017 FINDINGS: There is a displaced fracture of the lesser trochanter of the right hip. There is some slight cortical irregularity involving the medial aspect of the femur. Pathologic component is not fully excluded. No large hematoma is identified. There is no joint effusion. The visualized SI joints and symphysis are approximated. No additional pelvic or hip fracture deformity is identified. There is a questionable mass within the left adnexa of the pelvis measuring approximately 4 cm. A loop of bowel is not fully excluded. Recommend follow-up with IV contrast. Additionally, there is a small amount of the pelvic ascites of uncertain etiology. There is diverticulosis of the sigmoid colon without diverticulitis. IMPRESSION: 1. Displaced fracture of the lesser trochanter of the right hip. Pathologic component not excluded. This may be further evaluated with MRI on a nonemergent basis. 2. Questionable mass within the left adnexa. Nonemergent CT abdomen and pelvis with contrast recommended. 3. Small amount of pelvic ascites of uncertain etiology. 4. Diverticulosis of the sigmoid colon without diverticulitis. Dictated by: Dictated on workstation # [id number]
[2019-08-05] MEDS ORDERED: fentaNYL INJECTION 100 MCG/2 ML AMP IVP ONE (11:45)
[2019-08-05] MEDS ORDERED: fentaNYL PATCH 75 MCG (DURAGESIC) TD ONE (11:45)
[2019-08-05] MEDS ORDERED: FENT1PAT10 TD (12:04)
[2019-08-05] MEDS ORDERED: POLY119P5 PO (12:04)
--- NOTE | 2019-08-05 12:04 | ED Fall/Injury ---
General Chief Complaint: Trauma-Non Activation Stated Complaint: R HIP PAIN Nursing Triage Note: Rt hip pain. Denies radiation. Source: patient, family Exam Limitations: no limitations History of Present Illness Date Seen by Provider: Aug 05, 2019 Time Seen by Provider: 10:06 Initial Comments This 58-year-old woman presents to the emergency room via EMS with complaints of right groin/hip pain. She was squatting down to clean her dogs cause when she tipped over and a twisting fashion. She had sudden pain in the right hip and was unable to get up. 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 She is on hospice. She denies any significant impact or blunt trauma. She took 40 mg of Roxanol at home and EMS administered 100 g of fentanyl. EMS applied a pelvic binder which helped her feel better. Location Injury Occurred: Home Allergies and Home Medications Allergies Coded Allergies: No Allergy Information Available (Unverified , 01/18/17) Home Medications Fentanyl 1 Each Patch.td72, 75 MCG TD Q72H Prescribed by: DODIE ORTIZ on 08/05/19 1204 Ibandronate Sodium 150 Mg Tablet, 150 MG PO MONTHLY, (Reported) Ondansetron HCl 8 Mg Tablet, 8 MG PO Q8H PRN for NAUSEA/VOMITING-1ST LINE, (Reported) Polyethylene Glycol 3350 119 Gm Powder, 17 GM PO TID PRN for CONSTIPATION-1ST LINE Fill cap to line. Dissolved in 8-12 ounces clear liquid. Use up to 3x daily as needed for constipation Prescribed by: DODIE ORTIZ on 08/05/19 1204 Sennosides/Docusate Sodium 1 Each Tablet, 2 TAB PO DAILY PRN for CONSTIPATION- 6TH LINE, (Reported) Tramadol HCl 50 Mg Tablet, 50-100 MG PO Q8H PRN for PAIN-MODERATE, (Reported) Patient Home Medication List Home Medication List Reviewed: Yes Review of Systems Review of Systems Constitutional: no symptoms reported Eyes: No Symptoms Reported Ears, Nose, Mouth, Throat: no symptoms reported Respiratory: see HPI Cardiovascular: no symptoms reported Gastrointestinal: no symptoms reported Genitourinary: no symptoms reported : No Musculoskeletal: see HPI Skin: no symptoms reported Psychiatric/Neurological: No Symptoms Reported Past Fehpxfq-Xftzfb-Ufoexi Hx Past Med/Social Hx: Reviewed Nursing Past Med/Soc Hx Patient Social History Alcohol Use: Regular Use Number of Drinks Today: 0 Alcohol Beverage of Choice: Whiskey Recreational Drug Use: No Smoking Status: Never a Smoker 2nd Hand Smoke Exposure: No Recent Foreign Travel: No Contact w/Someone Who Travel: No Recent Infectious Disease Expo: No Recent Hopitalizations: No Immunizations Up To Date PED Vaccines UTD: No Date of Influenza Vaccine: Jun 08, 2019 Seasonal Allergies Seasonal Allergies: No Past Medical History Surgeries: Yes Ear Surgery, Hysterectomy Respiratory: No Cardiac: No Neurological: No Genitourinary: No Gastrointestinal: No Musculoskeletal: Yes Osteoporosis Endocrine: No HEENT: No Cancer: Yes (Leiomyosarcoma with metastases) Did You Recieve Any Treatments: Yes What Type of Treatment Did You: Chemotherapy, Surgical Intervention Psychosocial: No Integumentary: No Blood Disorders: No Adverse Reaction/Blood Tranf: No Physical Exam Vital Signs Vital Signs - First Documented 08/05/19 09:56 Temp 36.7 Pulse 100 Resp 18 B/P (MAP) 140/90 (107) Pulse Ox 96 O2 Delivery Room Air Capillary Refill : Less Than 3 Seconds Height, Weight, BMI Height: 5'3.00" Weight: 120lbs. oz. 54.351742rw; 21.00 BMI Method:Stated General Appearance: WD/WN, no apparent distress HEENT: PERRL/EOMI, normal ENT inspection Cardiovascular: regular rate, rhythm, no edema Respiratory: lungs clear, normal breath sounds, no respiratory distress Gastrointestinal: non tender, soft Extremities: other (Tenderness in the right groin with pain on flexion. Less pain with rotation.) Neurologic/Psychiatric: pmp II-XII nml as tested, no motor/sensory deficits, alert, normal mood/affect, oriented x 3 Skin: normal color, warm/dry [place] Coma Score Best Eye Response: (4) Open Spontaneously Best Verbal Response: (5) Oriented Best Motor Response: (6) Obeys Commands [place] Total: 15 Progress/Results/Core Measures Results/Orders My Orders Orders - DODIE HENRY MD Ct Pelvis Wo (08/05/19 10:16) Fentanyl Injection (Sublimaze Injection (08/05/19 11:45) Fentanyl Patch (Duragesic Patch) (08/05/19 11:45) Medications Given in ED Current Medications Medications Dose Ordered Sig/Imani Route Start Time Stop Time Status Last Admin Dose Admin Fentanyl 75 mcg Q72H ONCE TD 08/05/19 11:45 08/05/19 11:46 DC 08/05/19 12:12 75 MCG Fentanyl Citrate 75 mcg ONCE ONCE IVP 08/05/19 11:45 08/05/19 11:46 DC 08/05/19 11:51 75 MCG Vital Signs/I&O 08/05/19 08/05/19 09:56 12:25 Temp 36.7 36.7 Pulse 100 98 Resp 18 15 B/P (MAP) 140/90 (107) 134/91 (107) Pulse Ox 96 98 O2 Delivery Room Air Room Air Blood Pressure Mean: 107 POS Progress Progress Note : Progress Note CT was obtained revealing an avulsion fracture of the lesser trochanter. This was discussed with Dr. Strickland. Symptomatic treatment is indicated. No procedures are required to treat this fracture, especially in the context of hospice. Patient was advised to use a walker. A fentanyl patch was placed and she received an additional dose of IV fentanyl in the ER. Case was discussed with Dr. Rose as well. Diagnostic Imaging Diagonstic Imaging: CT Plain Films/CT/US/NM/MRI: pelvis Comments CT pelvis viewed by me and report reviewed. See report below: NAME: COREY LUCAS [facility] REC#: [id number] PT STATUS: DEP ER : 1960 PHYSICIAN: DODIE HENRY MD ADMIT DATE: 08/05/19/ER Signed Date of Exam:08/05/19 CT PELVIS WO PROCEDURE: CT pelvis without contrast. TECHNIQUE: Multiple contiguous axial images were obtained through the pelvis without the use of intravenous contrast. Sagittal and coronal reformations were performed. Auto Exposure Controls were utilized during the CT exam to meet ALARA standards for radiation dose reduction. INDICATION: Right hip pain fall COMPARISON: CT pelvis 01/28/2017 FINDINGS: There is a displaced fracture of the lesser trochanter of the right hip. There is some slight cortical irregularity involving the medial aspect of the femur. Pathologic component is not fully excluded. No large hematoma is identified. There is no joint effusion. The visualized SI joints and symphysis are approximated. No additional pelvic or hip fracture deformity is identified. There is a questionable mass within the left adnexa of the pelvis measuring approximately 4 cm. A loop of bowel is not fully excluded. Recommend follow-up with IV contrast. Additionally, there is a small amount of the pelvic ascites of uncertain etiology. There is diverticulosis of the sigmoid colon without diverticulitis. IMPRESSION: 1. Displaced fracture of the lesser trochanter of the right hip. Pathologic component not excluded. This may be further evaluated with MRI on a nonemergent basis. 2. Questionable mass within the left adnexa. Nonemergent CT abdomen and pelvis with contrast recommended. 3. Small amount of pelvic ascites of uncertain etiology. 4. Diverticulosis of the sigmoid colon without diverticulitis. Dictated by: Dictated on workstation # [id number] Dict: 08/05/19 1046 Trans: 08/05/19 1452 [facility] [id number] Interpreted by: ADRIEN CRUZ Electronically signed by: ADRIEN CRUZ 08/05/19 1452 Departure Impression Primary Impression: Closed fracture of lesser trochanter of femur Qualified Codes: S72.121A - Displaced fracture of lesser trochanter of right femur, initial encounter for closed fracture Additional Impression: Metastatic cancer Disposition: 01 HOME, SELF-CARE Condition: Improved Departure-Patient Inst. Decision time for Depature: 11:50 Referrals: BILL STRICKLAND MD, JOHN D MD (PCP/Family) Primary Care Physician Patient Instructions: MANAGING YOUR CHRONIC PAIN Add. Discharge Instructions: Use your fentanyl patch for background pain control. You may still use your other short acting pain medications as previously prescribed. Walk with a cane or walker for support and balance. Marvin wrap may be wrapped around your pelvis her upper thighs intermittently as needed to provide support and help control pain. Follow-up with Dr. Rose later this week. You may follow-up with Dr. Strickland as well as you have any questions or concerns about the fracture. Continue your bowel regimen of Colace and Senokot. If you need additional treatment for constipation you may use MiraLAX as prescribed. All discharge instructions reviewed with patient and/or family. Voiced understanding. Scripts Fentanyl (Fentanyl Patch 75MCG) 1 Each Patch.td72 75 MCG TD Q72H, #1 PATCH Prov: DODIE HENRY MD 08/05/19 Polyethylene Glycol 3350 (Miralax) 119 Gm Powder 17 GM PO TID PRN for CONSTIPATION-1ST LINE, #1 EA Fill cap to line. Dissolved in 8-12 ounces clear liquid. Use up to 3x daily as needed for constipation Prov: DODIE HENRY MD 08/05/19 Copy Copies To 1: CLARE ROSE MD Copies To 2: BILL STRICKLAND MD, JOSHUA T MD Aug 05, 2019 12:04 POS
[2019-08-05 12:25] VITALS: BP 134/91
== END 2019-08-05 12:25 | disposition home or self-care (01) ==
LOC: EDUNIT# 09:56 → ER 09:58
DX: S72.121A Displaced fracture of lesser trochanter of right femur, initial encounter for closed fracture (principal); C49.9 Malignant neoplasm of connective and soft tissue, unspecified; C78.00 Secondary malignant neoplasm of unspecified lung; C79.51 Secondary malignant neoplasm of bone; R40.2142 Coma scale, eyes open, spontaneous, at arrival to emergency department; R40.2252 Coma scale, best verbal response, oriented, at arrival to emergency department; R40.2362 Coma scale, best motor response, obeys commands, at arrival to emergency department; Z90.710 Acquired absence of both cervix and uterus; W18.39XA Other fall on same level, initial encounter
CPT/HCPCS: 72192; 96374